=== PATIENT | male | born 1965 | race African-American/Black ===

== ENCOUNTER → 2017-09-12 16:05 | Outpatient (CLI) | payer MEDICARE, MEDICAID, SELFPAY ==
[2017-09-12 16:51] LABS: Absolute Lymphocyte Count 1.68 X10^3/ul (0.83-4.51); Absolute Neutrophil Count 1.9 X10^3/uL (2.0-7.7); Basophil# 0.01 X10^3/uL; Basophil% 0.2 % (0-1); Eosinophil# 0.06 X10^3/uL; Eosinophils% 1.4 % (0-5); Hematocrit 35.6 % (40-54); Lymphocyte # 1.68 X10^3/ul (4.0); Lymphocyte % 40.6 % (19-41); Mean Corp Hgb Conc 33.7 g/gl (32-36); Mean Corpuscular Hgb 31.4 pg (27.0-32.0); Mean Corpuscular Volume 93.2 fL (80-94); Mean Platelet Vol. 11.4 fl (6.2-12.0); Monocyte# 0.44 X10^3/uL; Monocyte% 10.6 % (0-10); Neutrophil # 1.94 X10^3/uL (2.7-7.7); Platelet Count 221 K/mm3 (150-450); RBC Distribution Width CV 12.6 % (11.6-14.6); RBC Distribution Width SD 41.7 fl (35.1-43.9); Red Blood Count 3.82 M/mm3 (4.6-6.2); White Blood Count 4.1 K/mm3 (4.4-11.0)
[2017-09-12 16:54] LABS: POSITIVE COUNT NO; POSITIVE DIFFERENTIAL NO; POSITIVE MORPHOLOGY NO
[2017-09-12 17:20] LABS: ALB/GLOB Ratio 1.2 RATIO (0.9-2.4); AST(SGOT) 15 U/L (15-37); Alanine Aminotransfer ALT/SGPT 16 U/L (16-61); Albumin, Serum 3.9 g/dL (3.2-5.0); Alkaline Phosphatase 63 U/L (45-117); Anion Gap 8 (5-15); BUN 9 mg/dL (7-18); BUN/Creat Ratio 13.8 RATIO (10-20); Chloride 106 mmol/L (98-107); Creatinine, Serum 0.65 mg/dL (0.70-1.30); EST Glomerular Filtration Rate 136 mL/min (>60); Est Glom Filt Rate - Afr Amer 164 mL/min (>60); Globulin 3.3 g/dL (2.2-4.2); Glucose 88 mg/dL (74-106); Potassium 3.6 mmol/L (3.5-5.1); Protein, Total 7.2 g/dL (6.4-8.2); Sodium Level 142 mmol/L (136-145); Thyroid Stim Hormone (TSH) 1.23 uIU/mL (0.358-3.74)
[2017-09-14 09:08] LABS: Hep C Antibodies 0.1 s/co ratio (0.0-0.9)
== END ==
PROVIDERS: Family Provider Family Medicine Geriatric Medicine; PCP Family Medicine Geriatric Medicine; Visit Provider Family Medicine Geriatric Medicine
DX: I10 Essential (primary) hypertension (principal); Z13.89 Encounter for screening for other disorder
CPT/HCPCS: 36415; 80053; 84443; 85025; 86803

== ENCOUNTER → 2019-07-29 16:17 | Outpatient (CLI) | payer MEDICARE, MEDICAID, SELFPAY ==
[2019-07-29 17:44] LABS: Anion Gap 7 (5-15); BUN 8 mg/dL (7-18); BUN/Creat Ratio 13.4 RATIO (10-20); Calcium,Total 9.2 mg/dL (8.5-10.1); Chloride 108 mmol/L (98-107); Cholesterol 203 mg/dL (200); EST Glomerular Filtration Rate 150 mL/min (>60); Est Glom Filt Rate - Afr Amer 181 mL/min (>60); Glucose 91 mg/dL (74-106); High Density Lipoprotein 76 mg/dL; Potassium 3.5 mmol/L (3.5-5.1); Sodium Level 142 mmol/L (136-145); Triglycerides 74 mg/dL; Very Low Density Lipoprotein 15 mg/dL (5-40)
== END ==
PROVIDERS: PCP Family Medicine; Referring Provider Family Medicine; Visit Provider Family Medicine
DX: I10 Essential (primary) hypertension (principal)
CPT/HCPCS: 36415; 80048; 80061

== ENCOUNTER → 2020-03-25 16:18 | Outpatient (CLI) | payer MEDICARE, MEDICAID, SELFPAY ==
[2020-03-25 18:45] LABS: Anion Gap 4 (5-15); BUN 7 mg/dL (7-18); BUN/Creat Ratio 13.3 RATIO (10-20); Calcium,Total 9.1 mg/dL (8.5-10.1); Chloride 107 mmol/L (98-107); Creatinine, Serum 0.52 mg/dL (0.70-1.30); EST Glomerular Filtration Rate 173 mL/min (>60); Est Glom Filt Rate - Afr Amer 209 mL/min (>60); Glucose 91 mg/dL (74-106); Potassium 4.2 mmol/L (3.5-5.1); Sodium Level 141 mmol/L (136-145)
== END ==
PROVIDERS: PCP Family Medicine; Referring Provider Family Medicine; Visit Provider Family Medicine
DX: I10 Essential (primary) hypertension (principal)
CPT/HCPCS: 36415; 80048

== ENCOUNTER → 2021-03-03 16:03 | Outpatient (CLI) | payer MEDICARE, MEDICAID, SELFPAY ==
[2021-03-03 18:38] LABS: Anion Gap 7 (5-15); BUN 10 mg/dL (7-18); BUN/Creat Ratio 17.4 RATIO (10-20); Calcium,Total 9.5 mg/dL (8.5-10.1); Chloride 106 mmol/L (98-107); Cholesterol 214 mg/dL (200); Creatinine, Serum 0.58 mg/dL (0.70-1.30); EST Glomerular Filtration Rate 155 mL/min (>60); Est Glom Filt Rate - Afr Amer 188 mL/min (>60); Glucose 88 mg/dL (74-106); High Density Lipoprotein 67 mg/dL; Potassium 3.8 mmol/L (3.5-5.1); Sodium Level 141 mmol/L (136-145); Triglycerides 53 mg/dL; Very Low Density Lipoprotein 11 mg/dL (5-40)
== END ==
PROVIDERS: PCP Family Medicine; Referring Provider Family Medicine; Visit Provider Family Medicine
DX: I10 Essential (primary) hypertension (principal)
CPT/HCPCS: 36415; 80048; 80061

== ENCOUNTER 2021-08-30 15:03 | Outpatient (CLI) | payer MEDICARE, MEDICAID, SELFPAY ==
[2021-08-30 18:19] LABS: Anion Gap 7 (5-15); BUN 9 mg/dL (7-18); BUN/Creat Ratio 13.1 RATIO (10-20); Calcium,Total 9.6 mg/dL (8.5-10.1); Chloride 106 mmol/L (98-107); Cholesterol 204 mg/dL (200); Creatinine, Serum 0.69 mg/dL (0.70-1.30); EST Glomerular Filtration Rate 126 mL/min (>60); Est Glom Filt Rate - Afr Amer 153 mL/min (>60); Glucose 105 mg/dL (74-106); High Density Lipoprotein 57 mg/dL; Potassium 3.6 mmol/L (3.5-5.1); Sodium Level 140 mmol/L (136-145); Triglycerides 70 mg/dL; Very Low Density Lipoprotein 14 mg/dL (5-40)
== END 2021-08-30 23:59 | disposition home or self-care (01) ==
LOC: MFPLAB 15:07
PROVIDERS: PCP Family Medicine; Visit Provider Family Medicine
DX: I10 Essential (primary) hypertension (principal)
CPT/HCPCS: 36415; 80048; 80061

== ENCOUNTER → 2023-01-26 | Outpatient (CLI) | payer MEDICARE, MEDICAID, SELFPAY ==
[2023-01-26 18:23] LABS: Anion Gap 7 (5-15); BUN 6 mg/dL (7-18); BUN/Creat Ratio 9.9 RATIO (10-20); Calcium,Total 9.4 mg/dL (8.5-10.1); Chloride 108 mmol/L (98-107); Cholesterol 228 mg/dL (200); Creatinine, Serum 0.61 mg/dL (0.70-1.30); EST Glomerular Filtration Rate 145 mL/min (>60); Est Glom Filt Rate - Afr Amer 175 mL/min (>60); Glucose 103 mg/dL (74-106); High Density Lipoprotein 59 mg/dL; PSA,Total - Annual Screen 2.47 ng/mL (0.00-4.00); Potassium 3.5 mmol/L (3.5-5.1); Sodium Level 140 mmol/L (136-145); Triglycerides 111 mg/dL; Very Low Density Lipoprotein 22 mg/dL (5-40)
== END | disposition home or self-care (01) ==
LOC: MFPLAB 14:56
PROVIDERS: PCP Family Medicine; Visit Provider Family Medicine
DX: Z00.00 Encounter for general adult medical examination without abnormal findings (principal); Z12.5 Encounter for screening for malignant neoplasm of prostate; I10 Essential (primary) hypertension; E78.00 Pure hypercholesterolemia, unspecified
CPT/HCPCS: 36415; 80048; 80061; 84153; G0103

== ENCOUNTER → 2023-09-27 | Outpatient (CLI) | payer MEDICARE, MEDICAID, SELFPAY ==
[2023-09-27 18:10] LABS: Anion Gap 3 (5-15); BUN 5 mg/dL (7-18); BUN/Creat Ratio 7.9 RATIO (10-20); Calcium,Total 9.2 mg/dL (8.5-10.1); Chloride 109 mmol/L (98-107); Cholesterol 167 mg/dL (200); Creatinine, Serum 0.63 mg/dL (0.70-1.30); EST Glomerular Filtration Rate 137 mL/min (>60); Est Glom Filt Rate - Afr Amer 166 mL/min (>60); Glucose 107 mg/dL (74-106); High Density Lipoprotein 88 mg/dL; Potassium 3.9 mmol/L (3.5-5.1); Sodium Level 139 mmol/L (136-145); Triglycerides 44 mg/dL; Very Low Density Lipoprotein 9 mg/dL (5-40)
== END | disposition home or self-care (01) ==
LOC: MFPLAB 16:23
PROVIDERS: PCP Family Medicine; Visit Provider Family Medicine
DX: E78.00 Pure hypercholesterolemia, unspecified (principal)
CPT/HCPCS: 36415; 80048; 80061

== ENCOUNTER → 2023-11-10 | Outpatient (CLI) | payer MEDICARE, MEDICAID, SELFPAY ==
[2023-11-10 17:59] LABS: Anion Gap 7 (5-15); BUN 9 mg/dL (7-18); BUN/Creat Ratio 15.8 RATIO (10-20); Calcium,Total 9.8 mg/dL (8.5-10.1); Chloride 105 mmol/L (98-107); Creatinine, Serum 0.57 mg/dL (0.70-1.30); EST Glomerular Filtration Rate 155 mL/min (>60); Est Glom Filt Rate - Afr Amer 188 mL/min (>60); Glucose 99 mg/dL (74-106); Potassium 4.2 mmol/L (3.5-5.1); Sodium Level 137 mmol/L (136-145)
== END | disposition home or self-care (01) ==
LOC: MFPLAB 15:40
PROVIDERS: PCP Family Medicine; Visit Provider Family Medicine
DX: R63.1 Polydipsia (principal)
CPT/HCPCS: 36415; 80048

== ENCOUNTER → 2024-03-29 | Outpatient (CLI) | payer MEDICARE, MEDICAID, SELFPAY ==
[2024-03-29 11:29] LABS: ALB/GLOB Ratio 0.9 RATIO (0.9-2.4); AST(SGOT) 13 U/L (15-37); Alanine Aminotransfer ALT/SGPT 23 U/L (16-61); Albumin, Serum 3.7 g/dL (3.2-5.0); Alkaline Phosphatase 92 U/L (45-117); Anion Gap 6 (5-15); BUN 8 mg/dL (7-18); BUN/Creat Ratio 13.1 RATIO (10-20); Calcium,Total 9.2 mg/dL (8.5-10.1); Chloride 108 mmol/L (98-107); Cholesterol 152 mg/dL (200); Creatinine, Serum 0.61 mg/dL (0.70-1.30); EST Glomerular Filtration Rate 143 mL/min (>60); Est Glom Filt Rate - Afr Amer 173 mL/min (>60); Glucose 100 mg/dL (74-106); High Density Lipoprotein 72 mg/dL; Protein, Total 7.7 g/dL (6.4-8.2); Sodium Level 139 mmol/L (136-145); Triglycerides 54 mg/dL; Very Low Density Lipoprotein 11 mg/dL (5-40)
== END | disposition home or self-care (01) ==
PROVIDERS: PCP Family Medicine; Referring Provider Family Medicine; Visit Provider Family Medicine
DX: E78.00 Pure hypercholesterolemia, unspecified (principal)
CPT/HCPCS: 36415; 80053; 80061

== ENCOUNTER → 2024-06-07 | Outpatient (CLI) | payer MEDICARE, MEDICAID, SELFPAY ==
--- NOTE | 2024-06-07 16:00 | RAD_ITS ---
INDICATION: arm injury EXAMINATION/TECHNIQUE: X-RAY - LEFT XR Forearm 3 VIEWS COMPARISON: FINDINGS: SOFT TISSUES: No soft tissue swelling or gas. No radiopaque foreign body. BONES/JOINTS: No acute fracture or subluxation.. Normal alignment. Preservation of the joint space.. No sclerotic or destructive changes observed. RAD/Forearm 2 Views IMPRESSION: Negative. Electronically Signed: Jose Sumner DO at 16:30 EST ,
== END | disposition home or self-care (01) ==
LOC: MTRAD 15:57
PROVIDERS: PCP Family Medicine; Referring Provider Physician Assistant Surgical; Visit Provider Physician Assistant Surgical
DX: S59.912A Unspecified injury of left forearm, initial encounter (principal)
CPT/HCPCS: 73090

== ENCOUNTER → 2024-10-01 | Outpatient (CLI) | payer MEDICARE, MEDICAID, SELFPAY ==
[2024-10-01 15:44] LABS: ALB/GLOB Ratio 1.3 RATIO (0.9-2.4); AST(SGOT) 18 U/L (<=37); Alanine Aminotransfer ALT/SGPT 12 U/L (<=46); Albumin, Serum 4.5 g/dL (3.4-4.8); Alkaline Phosphatase 88 U/L (40-129); Anion Gap 12 (5-15); BUN 7 mg/dL (4-19); BUN/Creat Ratio 11.8 RATIO (10-20); Calcium,Total 9.9 mg/dL (7.6-11.0); Carbon Dioxide 23.7 mmol/L (21.0-32.0); Chloride 103 mmol/L (98-108); Cholesterol 175 mg/dL (<=200); Creatinine, Serum 0.61 mg/dL (0.70-1.20); EST Glomerular Filtration Rate 110 (>60); Globulin 3.4 g/dL (2.2-4.2); Glucose 96 mg/dL (70-99); High Density Lipoprotein 59 mg/dL; Low Density Lipoprotein Calc. 101 mg/dL; Potassium 4.3 mmol/L (3.3-5.1); Protein, Total 7.9 g/dL (5.9-8.4); Sodium Level 139 mmol/L (133-145); Total Bilirubin 0.93 mg/dL (0.00-1.30); Triglycerides 73 mg/dL; Very Low Density Lipoprotein 15 mg/dL (5-40); cholesterol:hdl ratio screen 2.97
== END | disposition home or self-care (01) ==
PROVIDERS: PCP Family Medicine; Referring Provider Family Medicine; Visit Provider Family Medicine
DX: E78.00 Pure hypercholesterolemia, unspecified (principal)
CPT/HCPCS: 36415; 80053; 80061

== ENCOUNTER 2025-01-12 13:18 | Emergency (ER) | payer MEDICARE, MEDICAID, SELFPAY ==
[2025-01-12 13:19] VITALS: BP 169/92; PULSE 108; RESP 18; TEMP 36.8; O2SAT 98; BMI 25.3
--- NOTE | 2025-01-12 13:38 | EX.ED.UPPERE ---
HPI History of Present Illness Chief Complaint: Upper Extremity Injury Detail of Chief Complaint: Right wrist injury Informant: patient and family Narrative Narrative: Patient presents to the emergency department with complaint of an injury to his right wrist that occurred today. His brother dropped him off at [facility] and while going into [employer] he lost his balance and fell injuring his right wrist. He was able to get up right away. He had no loss of consciousness. Did not hit his head. Patient has history of developmental delay. He denies any other injuries. He is left-hand dominant. Later started complaining of right wrist pain [facility] Medical History (Updated 01/12/25 @ 14:[address] Mark Arguello, DO) Hyperlipidemia HTN (hypertension) Home Medications ?Medication ?Instructions ?Recorded ?Last Taken ?Type lisinopril 20 mg tablet 20 mg PO QDAY 04/30/24 Unknown History rosuvastatin 5 mg tablet 5 mg PO QDAY 04/30/24 Unknown History naproxen 375 mg tablet 375 mg PO BID PRN pain #14 tabs 06/07/24 Unknown Rx hydrocodone-acetaminophen 5-325mg 1 tab PO Q4H PRN PRN Pain 2 days 01/12/25 Unknown Rx 5mg-325mg #12 TABLETS Allergy/AdvReac Type Severity Reaction Status Date / Time No Known Allergies Allergy Verified 01/12/25 13:20 Surgical History No pertinent past surgical history Social History (Updated 01/12/25 @ 13:33 by Kacey Cueva) current occupational status: disabled Smoking Status: Never smoker ROS ROS ED Review of Systems ROS Unobtainable: other Constitutional Constitutional ED: Reports lethargy; Denies chills, fever(s), sweats or weight loss Eyes Eyes: Denies blurry vision, change in vision or diplopia ENT ENT ED: Denies rhinorrhea or sore throat Cardiovascular Cardiovascular: Denies chest pain, orthopnea or racing heartbeat Respiratory/Chest Respiratory/Chest: Denies cough, dyspnea, dyspnea on exertion, orthopnea or sputum Gastrointestinal Gastrointestinal: Denies abdominal pain, diarrhea, nausea or vomiting Genitourinary Genitourinary ED: Denies dysuria, hematuria or urinary frequency Musculoskeletal Musculoskeletal: Reports other Details: Right wrist injury/pain ; Denies arthralgias, back pain, myalgias or neck pain Integumentary Denies abscess, Abrasions or rash Neurologic Neurologic: Denies headache(s) or weakness Psychiatric Psychiatric: Denies anxiety, depression or suicidal thoughts Endocrine Endocrinology: Denies polydipsia, polyphagia or polyuria Hematologic/Lymphatic Hematologic/Lymphatic: Denies easy bleeding, easy bruising or lymphadenopathy Allergic/Immunologic Allergic/Immunologic ED: Denies mouth swelling, tongue swelling or urticaria EXAM Physical Exam Const Vital Signs: 01/12/25 13:19 Temperature 98.3 F Temperature Source Temporal Pulse Rate 108 H Respiratory Rate 18 Blood Pressure 169/92 H Blood Pressure Mean 117 Pulse Ox 98 Oxygen Delivery Method Room Air Positive well nourished and well developed General Appearance ED: well developed and NAD HEENT Reports TM's clear and moist mucous membranes normocephalic and atraumatic; Negative for trauma or tenderness Tympanic Membrane ED: Yes TM's clear Eyes PERRL and EOMs intact bilaterally General Eye ED: Negative for pale conjunctiva or scleral icterus Neck no lymphadenopathy, supple and no JVD General: Negative for tenderness Chest Wall inspection of chest normal and palpation of chest normal Chest: Negative for tenderness Resp normal respiratory effort and clear to auscultation bilaterally Effort and Inspection: Negative for respiratory distress or pain with movement Auscultation: Negative for rhonchi, wheezes or diminished lung sounds Cardio regular rate, regular rhythm, S1 normal heart sound, S2 normal heart sound and no murmurs Peripheral Pulses: pulses 2+ throughout GI normal to inspection, nondistended, normoactive bowel sounds, soft to palpation, non-tender, non-distended and no masses Back/Spine no CVA tenderness and no thoracic nor lumbar tenderness Extremity Extremity Narrative: Right wrist-patient has diffuse soft tissue swelling with tenderness over the distal radius. No pain of the hand. There is no broken skin noted. No pain at the elbow. He is neurovascularly intact distally. General Extremety ED: Negative for edema General Extremity: Negative for edema Neuro oriented x3, CN's II-XII intact bilaterally, no sensory deficits noted and gait normal Sensorium / Orientation: awake, alert, oriented to person, oriented to place and oriented to time Motor Exam: strength 5/5 throughout and strength abnormal Psych mental status grossly normal Skin no rashes or lesions noted and no wounds MDM MDM MDM Narrative Medical decision making narrative: Patient presents with a mechanical fall with injury to the right wrist. No other significant injuries noted. Patient [id number]. X-rays obtained showed a distal radius fracture. Discussed case with orthopedic surgeon on-call Dr. Zach Luke. Will place patient in a AP splint with a little bit of volar tilt. Will have patient follow-up with orthopedics. Will give patient a sling. Will give a prescription for [place] for pain. Patient had AP splint fabricated by myself from [facility]. Radiography Diagnostic Testing: Three-view x-rays of the right wrist obtained interpreted by myself as distal radius fracture intra-articular with no significant displacement. Radiology in agreement. Discharge Plan Triage Chief Complaint: Upper Extremity Injury ED Provider: Mark Arguello Dx/Rx/DC Orders Clinical Impression: Distal radius fracture, right Instructions: ED Colles Fracture No Reduction ... Prescriptions: New hydrocodone-acetaminophen 5-325 mg tablet 1 tab PO Q4H PRN PRN (Reason: Pain) 2 Days Qty: 12 0RF No Action lisinopril 20 mg tablet 20 mg PO QDAY rosuvastatin 5 mg tablet 5 mg PO QDAY naproxen 375 mg tablet 375 mg PO BID PRN (Reason: pain) Qty: 14 0RF Primary Care Provider: Roly Garcia Referrals: Roly Garcia MD [Primary Care Provider] - Zach Luke MD [Med Staff - Active Staff] - 3-5 Days Print Language: Citizen Of [place] Disposition Disposition: Home, Self Care
--- NOTE | 2025-01-12 13:40 | RAD_ITS ---
PROCEDURE: WRIST MIN 3 VIEWS 01/12/2025 REASON FOR EXAM: INJURY TECHNIQUE: WRIST MIN 3 VIEWS Laterality: COMPARISON: None. FINDINGS: Bones: Acute complex fracture of the distal radius extending to the radial carpal joint. Joints: No dislocation. Soft tissues: Soft tissue swelling. RAD/Wrist min 3 Views IMPRESSION: Acute complex fracture of the distal radius extending to the radial carpal join t. Reading Location: [id number]
--- OUTSIDE RECORDS SUMMARY | 2025-01-12 13:57 | XMS RPT_ITS | CCD ---
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 <150 mg/dL Borderline high 150 - 199 mg/dL High 200 - 499 mg/dL Very High > or = 500 mg/dL Laboratory - Chemistry and C hemistry - challengeOrdered By: Roly Garcia on 09-27-2023 Cholesterol in HDL [Mass/Vol] 88 mg/dL >40 [facility] Comment on above: The drugs N-Acetylcy steine and Metamizole may falsely depress this assay. Reference Range HDL <40 mg/dL Low HDL Cholesterol HDL >or= 60 mg/dL High HDL Cholesterol Cholesterol in LDL [Mass/Vol] 70 mg/dL 0-130 [facility] CO2 [Moles/Vol] 27.0 mmol/L 21.0-32.0 [facility] Urea nitrogen/Creatinine [Mass ratio] 7.9 mg/mg 10-20 [facility] No Panel InformationOrdered By: Roly Garcia on 09-27-2023 Estimated GFR (MDRD) Amer 166 mL/min >60 [facility] Comment on above: GFR Calc Estimated GFR (MDRD) Non-Af Amer 137 mL/min >60 [facility] Comment on above: Non- GFR Calc VLDL Cholesterol 9 mg/dL 5-40 [facility] Serum or plasma calcium trip urement (mass/volume)Ordered By: Roly Garcia on 09-27-2023 Calcium [Mass/Vol] 9.2 mg/dL 8.5-10.1 [facility] Serum or plasma creatinine m easurement (mass/volume)Ordered By: Roly Garcia on 09-27-2023 Creatinine [Mass/Vol] 0.63 mg/dL 0.70-1.30 [facility] Comment on above: The validity of the calculated GFR & GFRAA in patients over 70 years has not been determined. Clinical correlation is essential. Serum or plasma urea nitroge n measurement (mass/volume)Ordered By: Roly Garcia on 09-27-2023 Urea nitrogen [Mass/Vol] 5 mg/dL 7-18 [facility] Thin prep Papanicolaou smear with manual screeningOrdered By: Roly Garcia on 09-27-2023 Thin prep Papanicolaou smear with manual screening 3 5-15 [facility] CNPNon 05-19-2023 CNPN Telephone (PODIWS) WILBUR PEARSON ([id number]) 1965 M Date Time Provider Department 05/19/23 SASKIA VALENCIA PODIWS During your visit today, we recorded the following information about you: Allergies As of Date: 05/19/2023 (No Known Allergies) Date Reviewed: 05/18/2023 Reviewed by: Yancy Flores, NANCY - Fully Assessed Meds Comments as of 05/18/2023: 05/18/23-Patient unsure of medication. Mother states Coreg and Lisinopril but unsure of dose. Problem List As Of Date: 05/19/2023 (None) Encounter Status:Closed by NIELS UMANA on 05/19/23 [facility] CNOVon 05-18-2023 CNOV Office Visit (PODIWS) WILBUR PEARSON ([id number]) 1965 M Date Time Provider Department 05/18/23 3:00 PM SASKIA VALENCIA PODIWS During your visit today, we recorded the following information about you: Yancy Flores, NANCY 05/20/2023 6:44 AM Signed Patient presents with: Left Foot - New, nail care Right Foot - New, nail care Patient presents for nail care. Patient new to [facility]. Unsure of medications that he takes, Lives with mother. States that he is not a diabetic. All toenail are long, thick and discolored. Saskia Valencia 05/20/2023 6:44 AM Signed Initial Podiatric Office Visit: Chief Complaint: This 57 year old male who presents with chief complaint:painful toenails HPI Patient presents to clinic for evaluation of b/l feet Complains of severe thickening of toenails 1-5 b/l Has not been debrided in quite some time. Here to discuss options. PAIN EVALUATION No data found in the last 1 encounters. No results found for: HBA1C PCP: No primary care provider on file. PAST MEDICAL HISTORY Diagnosis Date HTN (hypertension) No current outpatient medications on file. No current facility-administere d medications for this visit. ALLERGIES No Known Allergies No past surgical history on file. No family history on file. Social History Tobacco Use Smoking status: Never Smokeless tobacco: Never Vaping Use Vaping Use: Never used Substance Use Topics Alcohol use: Never Drug use: Never REVIEW OF SYSTEMS GENERAL: Negative for Malaise, significant weight loss, fever RESPIRATORY: Negative for cough, wheezing and shortness of breath CARDIOVASCULAR: Negative for chest pain, leg swelling and palpitations GI: Negative for abdominal discomfort, blood in stools or black stools and change in bowel habits : Negative for dysuria, frequency and incontinence MUSCULOSKELETAL: Negative for joint pain or swelling, back pain, and muscle pain. SKIN: Negative for lesions, rash, and itching. HEMATOLOGY/LYMPHOLOG Y Negative for prolonged bleeding, bruising easily, and swollen nodes. ENDOCRINE: Negative for cold or heat intolerance, polyuria, polydipsia and goiter. NEURO: negative Physical Exam: Constitutional: Pt is a well developed 57 year old male who is alert, oriented and cooperative Eyes: Following during examination. No redness or drainage. Respiratory: RR normal and nonlabored. Even breathing. No evidence of distress or shortness of breath. Psychology: Patient is engaged during conversation. Normal affect and mood. Does not appear depressed or anxious during encounter. Vascular: Dorsalis pedis and posterior tibial pulses palpable as b/l Capillary Fill time < 5 seconds to digits 1-5 b/l Skin temperature warm to warm proximal to distal b/l Hair growth present to digits Neurological: intact light touch/epicritic sensation b/l intact protective sensation no significant neurological deficits Dermatological: Nails 1-5 b/l appear severely thick, dystrophic, painful. Webspaces clean and dry 1-4 b/l. Skin appears well hydrated and supple. good color, texture, turgor. No open lesions present. No callosities present. Radiographs: n/a ASSESSMENT: (B35.1) Onychomycosis (primary encounter diagnosis) (M79.675) Pain in toe of left foot (M79.674) Pain in toe of right foot PLAN: A review of the patient's PMH and Podiatric physical exam was completed. We discussed the possible etiologies of discolored, dystrophic, and thickened nails including fungus, yeast, mold as well as in some instances, prior trauma, or mechanical causes such as repetitive microtrauma in shoe gear. We discussed topical medication for discolored toenails which has very low success but no major side effects. We discussed oral medication. Patient will need hepatic testing prior to use. Patient informed of risks associated with Lamisil. We discussed removal of toenails. Patient would like to proceed with debridement. Debridement of toenails 1-5 b/l. Saskia Valencia DPM Podiatry [address] [facility] [address] Dept: [phone] Dept Allergies As of Date: 05/18/2023 (No Known Allergies) Date Reviewed: 05/18/2023 Reviewed by: Yancy Flores, NANCY - Fully Assessed Reason for Visit: New [522975] nail care [Other] New [750233] nail care [Other] Primary Visit Diagnosis:Onychomyco sis [B35.1] Other Visit Diagnoses:Pain in toe of left foot [M79.675] Pain in toe of right foot [M79.674] Meds Comments as of 05/18/2023: 05/18/23-Patient unsure of medication. Mother states Coreg and Lisinopril but unsure of dose. Problem List As Of Date: 05/18/2023 (None) Encounter Status:Closed by SASKIA VALENCIA DPM on 05/20/23 Normal [facility] Basophil percentageon 2021 Chloride [Moles/Vol] 106 mmol/L 98-107 [facility] Work Phone: Cholesterol [Mass/Vol] 204 mg/dL <200 [facility] Work Phone: Comment on above: <200 mg/dL Desirable 200-240 mg/dL Borderline >240 mg/dL High Risk Glucose [Mass/Vol] 105 mg/dL 74-106 [facility] Work Phone: Comment on above: Fasting Glucose resu lt from 100 to 125 mg/dL suggests IMPAIRED HOMEOSTASIS per A.D.A. criteria. Potassium [Moles/Vol] 3.6 mmol/L 3.5-5.1 [facility] Work Phone: Sodium [Moles/Vol] 140 mmol/L 136-145 [facility] Work Phone: Triglyceride [Mass/Vol] 70 mg/dL [facility] Work Phone: Comment on above: The drugs N-Acetylcy steine and Metamizole may falsely depress this assay.Serum Triglycerides Reference Interval Normal <150 mg/dL Borderline high 150 - 199 mg/dL High 200 - 499 mg/dL Very High > or = 500 mg/dL Laboratory - Chemistry and C hemistry - challengeon 08-30-2021 CO2 [Moles/Vol] 27.0 mmol/L 21.0-32.0 [facility] Work Phone: Urea nitrogen/Creatinine [Mass ratio] 13.1 mg/mg 10-20 [facility] Work Phone: No Panel Informationon 08-30 Estimated GFR (MDRD) Amer 153 mL/min >60 [facility] Work Phone: Comment on above: GFR Calc Estimated GFR (MDRD) Non-Af Amer 126 mL/min >60 [facility] Work Phone: Comment on above: Non- GFR Calc Serum or plasma calcium rtip urement (mass/volume)on 08-30-2021 Calcium [Mass/Vol] 9.6 mg/dL 8.5-10.1 [facility] Work Phone: Serum or plasma cholesterol in HDL measurement (mass/volume)on 08-30-2021 Cholesterol in HDL [Mass/Vol] 57 mg/dL [facility] Work Phone: Comment on above: The drugs N-Acetylcy steine and Metamizole may falsely depress this assay. Reference Range HDL <40 mg/dL Low HDL Cholesterol HDL >or= 60 mg/dL High HDL Cholesterol Serum or plasma cholesterol in VLDL measurement (mass/volume)on 08-30-2021 Cholesterol in VLDL [Mass/Vol] 14 mg/dL 5-40 [facility] Work Phone: Serum or plasma creatinine m easurement (mass/volume)on 08-30-2021 Creatinine [Mass/Vol] 0.69 mg/dL 0.70-1.30 [facility] Work Phone: Comment on above: The validity of the calculated GFR & GFRAA in patients over 70 years has not been determined. Clinical correlation is essential. Serum or plasma low density lipoprotein (LDL) cholesterol measurement (mass/volume)on 08-30-2021 Cholesterol in LDL [Mass/Vol] 133 mg/dL 0-130 [facility] Work Phone: Serum or plasma urea nitroge n measurement (mass/volume)on 08-30-2021 Urea nitrogen [Mass/Vol] 9 mg/dL 7-18 [facility] Work Phone: Thin prep Papanicolaou smear with manual screeningon 08-30-2021 Thin prep Papanicolaou smear with manual screening 7 5-15 [facility] Work Phone: Encounters Encounter Date Encounter Type Care Provider Facility Start: 10-01-2024 End: 10-01-2024 ambulatory [facility] Facility:[facility] Start: 06-07-2024 End: 06-07-2024 ambulatory [facility] [place] Start: 06-07-2024 End: 06-07-2024 ambulatory [facility] Facility:[facility] Start: 04-30-2024 End: 04-30-2024 ambulatory [facility] [place] Start: 03-29-2024 End: 03-29-2024 ambulatory [facility] Facility:[facility] Start: 11-10-2023 End: 11-10-2023 [facility] Facility:[facility] Start: 09-27-2023 End: 09-27-2023 ambulatory [facility] Work Phone: Start: 09-27-2023 End: 09-27-2023 Patient encounter procedure [facility] Start: 05-19-2023 Telephone encounter Saskia Judd Work Phone: Podiatry Start: 05-18-2023 End: 05-18-2023 ambulatory SASKIA VALENCIA Facility:[facility] Start: 05-18-2023 End: 05-18-2023 Patient encounter procedure Saskia Valencia Work Phone: Podiatry Comment on above: Onychomycosis (Prima ry Dx); Pain in toe of left foot; Pain in toe of right foot Start: 08-30-2021 End: 08-30-2021 Patient encounter procedure [facility] Plan of Treatment Date Care Activity Detail Author Start: 01-26-2033 Urine microalbumin profile DTa P,Tdap,Td Vaccine (2 - Td or Tdap) [facility] Start: 02-03-2023 Covid-19 Vaccine ( season) Covid-19 Vaccine ( season) [facility] Start: 02-03-2023 Influenza vaccination Influenza Vacc ine (#1) [facility] Start: 06-05-2022 Depression Assessment Depression Ass essment [facility] Start: 2019 Prostate specific an tigen measurement Prostate Cancer Screening Discussion [facility] Start: 2014 Shingrix Vaccine (1 of 2) Mathis grix Vaccine (1 of 2) [facility] Start: 2009 Diabetes Screening Diabetes Screenin g [facility] Start: 2009 Screening for malign ant neoplasm of colon [facility] Start: 1999 [facility] Start: 1982 Hepatitis C screening Hepatitis C Sc [place] [facility] Start: 1982 HIV screening HIV Screening [facility] lashay [facility] Start: 1964 Hepatitis B Vaccine (1 of 3 - 3-dose series) Hepatitis B Vaccine (1 of 3 - 3-dose series) [facility] Immunizations Immunization Date Immunization Notes Care Provider Juan Manuel boyce 03-04-2022 influenza, injectabl e, quadrivalent, preservative free [facility] 03-04-2022 influenza virus vaccine, unspecified formulation Saskia Valencia Work Phone: [facility] 05-19-2021 Covid (Moderna) [facility] 03-02-2021 influenza, injectabl e, quadrivalent, preservative free [facility] 03-02-2021 influenza, seasonal, injectable [facility] Work Phone: 07-14-2020 Covid (Moderna) [facility] 06-16-2020 Covid (Moderna) [facility] 03-03-2020 influenza, injectabl e, quadrivalent, preservative free [facility] 03-03-2020 influenza, seasonal, injectable [facility] Work Phone: 04-08-2019 influenza, injectabl e, quadrivalent, preservative free [facility] 04-08-2019 influenza, seasonal, injectable [facility] Work Phone: 03-19-2018 influenza, injectabl e, quadrivalent, preservative free [facility] 03-19-2018 influenza, seasonal, injectable [facility] Work Phone: 03-10-2017 influenza, injectabl e, quadrivalent, preservative free [facility] 03-10-2017 influenza, seasonal, injectable [facility] Work Phone: 03-03-2016 influenza, injectabl e, quadrivalent, preservative free [facility] 03-03-2016 influenza, seasonal, injectable [facility] Work Phone: 03-04-2015 influenza, injectabl e, quadrivalent, preservative free [facility] 03-04-2015 influenza, seasonal, injectable [facility] Work Phone: 02-27-2014 influenza, injectabl e, quadrivalent, preservative free [facility] 02-27-2014 influenza, seasonal, injectable [facility] Work Phone: 06-13-2013 Influenza virus vaccine [facility] Payers Date Payer Category Payer Self-pay [id number] 2021 Medicaid [id number] 1991 Medicare [id number] 1991 Medicare MEDICARE MEDICAR E A AND B [id number] 1991-Present [phone] [place] [address] Medicare [id number] Unknown [id number] Unknown [id number] Unknown [id number] Unknown [id number] Unknown [id number] Social History Date Type Detail Facility [facility]: [facility] Start: 1965 Sex Assigned At Male [facility] Start: 05-18-2023 [facility] Start: 05-18-2023 Tobacco use and exposure Smokeless tobacco non-user [facility] Start: 05-18-2023 Alcohol intake Lifetime non-d emanuel (finding) [facility] Start: 05-18-2023 History of Social function [facility] Start: 05-18-2023 Tobacco use panel [facility] National Score (1-100), lower number is lower risk 80 [facility] Start: 1965 [facility] 05-20-2023 Note Date & Type Note Facility 05-20-2023 Note HNO ID: [id number] Author: Sasika Valencia Service: ? Author Type: Physician Type: Progress Notes Filed: 05/20/2023 6:44 AM Note Text: Initial Podiatric Office Visit: Chief Complaint: This 57 year old male who presents with chief complaint:painful toenails HPI Patient presents to clinic for evaluation of b/l feet Complains of severe thickening of toenails 1-5 b/l Has not been debrided in quite some time. Here to discuss options. PAIN EVALUATION No data found in the last 1 encounters. No results found for: HBA1C PCP: No primary care provider on file. PAST MEDICAL HISTORY Diagnosis Date HTN (hypertension) No current outpatient medications on file. No current facility-administered medications for this visit. ALLERGIES No Known Allergies No past surgical history on file. No family history on file. Social History Tobacco Use Smoking status: Never Smokeless tobacco: Never Vaping Use Vaping Use: Never used Substance Use Topics Alcohol use: Never Drug use: Never REVIEW OF SYSTEMS GENERAL: Negative for Malaise, significant weight loss, fever RESPIRATORY: Negative for cough, wheezing and shortness of breath CARDIOVASCULAR: Negative for chest pain, leg swelling and palpitations GI: Negative for abdominal discomfort, blood in stools or black stools and change in bowel habits : Negative for dysuria, frequency and incontinence MUSCULOSKELETAL: Negative for joint pain or swelling, back pain, and muscle pain. SKIN: Negative for lesions, rash, and itching. HEMATOLOGY/LYMPHOLOGY Negative for prolonged bleeding, bruising easily, and swollen nodes. ENDOCRINE: Negative for cold or heat intolerance, polyuria, polydipsia and goiter. NEURO: negative Physical Exam: Constitutional: Pt is a well developed 57 year old male who is alert, oriented and cooperative Eyes: Following during examination. No redness or drainage. Respiratory: RR normal and nonlabored. Even breathing. No evidence of distress or shortness of breath. Psychology: Patient is engaged during conversation. Normal affect and mood. Does not appear depressed or anxious during encounter. Vascular: Dorsalis pedis and posterior tibial pulses palpable as b/l Capillary Fill time < 5 seconds to digits 1-5 b/l Skin temperature warm to warm proximal to distal b/l Hair growth present to digits Neurological: intact light touch/epicritic sensation b/l intact protective sensation no significant neurological deficits Dermatological: Nails 1-5 b/l appear severely thick, dystrophic, painful. Webspaces clean and dry 1-4 b/l. Skin appears well hydrated and supple. good color, texture, turgor. No open lesions present. No callosities present. Radiographs: n/a ASSESSMENT: (B35.1) Onychomycosis (primary encounter diagnosis) (M79.675) Pain in toe of left foot (M79.674) Pain in toe of right foot PLAN: A review of the patient's PMH and Podiatric physical exam was completed. We discussed the possible etiologies of discolored, dystrophic, and thickened nails including fungus, yeast, mold as well as in some instances, prior trauma, or mechanical causes such as repetitive microtrauma in shoe gear. We discussed topical medication for discolored toenails which has very low success but no major side effects. We discussed oral medication. Patient will need hepatic testing prior to use. Patient informed of risks associated with Lamisil. We discussed removal of toenails. Patient would like to proceed with debridement. Debridement of toenails 1-5 b/l. Saskia Valencia DPM Podiatry [address] [facility] [address] Dept: [phone] Dept [facility] History of Present illness Narrative 05-20-2023 Saskia Valencia - 05/20/2023 6:40 AM Yancy Sherwood RN - 05/18/2023 3:16 PM EST Note Date & Type Note Facility 05-20-2023 History of Presen t illness Narrative Initial Podiatric Office Visit: Chief Complaint: This 57 year old male who presents with chief complaint:painful toenails HPI Patient presents to clinic for evaluation of b/l feet Complains of severe thickening of toenails 1-5 b/l Has not been debrided in quite some time. Here to discuss options. PAIN EVALUATION No data found in the last 1 encounters. No results found for: HBA1C PCP: No primary care provider on file. PAST MEDICAL HISTORY Diagnosis Date HTN (hypertension) No current outpatient medications on file. No current facility-administered medications for this visit. ALLERGIES No Known Allergies No past surgical history on file. No family history on file. Social History Tobacco Use Smoking status: Never Smokeless tobacco: Never Vaping Use Vaping Use: Never used Substance Use Topics Alcohol use: Never Drug use: Never REVIEW OF SYSTEMS GENERAL: Negative for Malaise, significant weight loss, fever RESPIRATORY: Negative for cough, wheezing and shortness of breath CARDIOVASCULAR: Negative for chest pain, leg swelling and palpitations GI: Negative for abdominal discomfort, blood in stools or black stools and change in bowel habits : Negative for dysuria, frequency and incontinence MUSCULOSKELETAL: Negative for joint pain or swelling, back pain, and muscle pain. SKIN: Negative for lesions, rash, and itching. HEMATOLOGY/LYMPHOLOGY Negative for prolonged bleeding, bruising easily, and swollen nodes. ENDOCRINE: Negative for cold or heat intolerance, polyuria, polydipsia and goiter. NEURO: negative Physical Exam: Constitutional: Pt is a well developed 57 year old male who is alert, oriented and cooperative Eyes: Following during examination. No redness or drainage. Respiratory: RR normal and nonlabored. Even breathing. No evidence of distress or shortness of breath. Psychology: Patient is engaged during conversation. Normal affect and mood. Does not appear depressed or anxious during encounter. Vascular: Dorsalis pedis and posterior tibial pulses palpable as b/l Capillary Fill time < 5 seconds to digits 1-5 b/l Skin temperature warm to warm proximal to distal b/l Hair growth present to digits Neurological: intact light touch/epicritic sensation b/l intact protective sensation no significant neurological deficits Dermatological: Nails 1-5 b/l appear severely thick, dystrophic, painful. Webspaces clean and dry 1-4 b/l. Skin appears well hydrated and supple. good color, texture, turgor. No open lesions present. No callosities present. Radiographs: n/a ASSESSMENT: (B35.1) Onychomycosis (primary encounter diagnosis) (M79.675) Pain in toe of left foot (M79.674) Pain in toe of right foot PLAN: A review of the patient's PMH and Podiatric physical exam was completed. We discussed the possible etiologies of discolored, dystrophic, and thickened nails including fungus, yeast, mold as well as in some instances, prior trauma, or mechanical causes such as repetitive microtrauma in shoe gear. We discussed topical medication for discolored toenails which has very low success but no major side effects. We discussed oral medication. Patient will need hepatic testing prior to use. Patient informed of risks associated with Lamisil. We discussed removal of toenails. Patient would like to proceed with debridement. Debridement of toenails 1-5 b/l. Saskia Valencia DPM Podiatry [address] [facility] [address] Dept: [phone] Dept Patient presents with: Left Foot - New, nail care Right Foot - New, nail care Patient presents for nail care. Patient new to [facility]. Unsure of medications that he takes, Lives with mother. States that he is not a diabetic. All toenail are long, thick and discolored. documented in this encounter [facility] Progress note 05-18-2023 Note Date & Type Note Facility 05-18-2023 Note HNO ID: [id number] Author: Yancy Flores RN Service: ? Author Type: Registered Nurse Type: Progress Notes Filed: 05/20/2023 6:44 AM Note Text: Patient presents with: Left Foot - New, nail care Right Foot - New, nail care Patient presents for nail care. Patient new to [facility]. Unsure of medications that he takes, Lives with mother. States that he is not a diabetic. All toenail are long, thick and discolored. [facility] Evaluation note Note Date & Type Note Facility Evaluation note No assessment information availa [facility] Work Phone: Evaluation note Note Date & Type Note Facility Evaluation note Diagnosis Onychomycosis- Primary Dermatophytosis of nail Pain in toe of left foot Pain in limb Pain in toe of right foot Pain in limb documented in this encounter [facility] Summary Purpose Family History No Family History Records FoundNo Family History Records Found Advance Directives No Advanced Directives Records FoundNo Advanced Directives Records Found Additional Source Comments Goals (unrecognized section and content) Goals may be documented in a n alternate sectionGoals may be documented in an alternate section Source Comments (unrecognize d section and content) In the event this informatio n is protected by the Federal Confidentiality of Alcohol and Drug Abuse Patient Records regulations: The Federal rules restrict any use of the information to criminally investigate or prosecute any alcohol or drug abuse patient[facility] event this information is protected by the Federal Confidentiality of Alcohol and Drug Abuse Patient Records regulations: The Federal rules restrict any use of the information to criminally investigate or prosecute any alcohol or drug abuse patient.[facility] Reason for Visit (unrecogniz ed section and content) Reason Comments New nail care (unrecognized sect ion and content) No Status Records FoundNo Status Records Found INFORMATION SOURCE (unrecogn ized section and content) DATE CREATED AUTHOR 05/20/2023 [facility] DATE CREATED AUTHOR AUTHOR'S ORGANIZ ATION 10/10/2024 [facility] Care Teams (unrecognized sec tion and content) Team Status: Active Member Role Status Dates Dr. Gal Tellez MD Family Provider Active Dr. Roly Garcia MD Primary Care Provider Active Team Status: Inactive Member Role Status Dates Dr. Roly Garcia MD Primary Care Provider, Attending Provider Active FOR RECORDS PERTAINING TO PATIENTS WHO ARE OR HAVE BEEN ENROLLED IN A CHEMICAL DEPENDENCY/SUBSTANCEABUSE PROGRAM, SOME INFORMATION MAY BE OMITTED. This clinical summary was aggregated from multiple sources. Caution should be exercised in using it in the provision of clinical care. This summary normalizes information from multiple sources, and as a consequence, information in this document may materially change the coding, format and clinical context of patient data. In addition, data may be omitted in some cases. CLINICAL DECISIONS SHOULD BE BASED ON THE PRIMARY CLINICAL RECORDS. [facility] [employer] [facility]. provides no warranty or guarantee of the accuracy or completeness of information in this document.
[2025-01-12] MEDS: HYDROcodone Bitartrate/Apap 5/325 Tablet PO (14:07)
[2025-01-12 14:18] VITALS: BP 155/100; PULSE 93; RESP 17; TEMP 36.6; O2SAT 100
== END 2025-01-12 14:18 | disposition home or self-care (01) ==
PROVIDERS: Emergency Provider Emergency Medicine; PCP Family Medicine; Referring Provider Emergency Medicine; Visit Provider Emergency Medicine
DX: S52.501A Unspecified fracture of the lower end of right radius, initial encounter for closed fracture (principal); W19.XXXA Unspecified fall, initial encounter
CPT/HCPCS: 73110; 99283

== ENCOUNTER 2025-01-12 22:21 | Emergency (ER) | payer MEDICARE, MEDICAID, SELFPAY ==
[2025-01-12 22:23] VITALS: BP 136/79; PULSE 88; RESP 16; TEMP 36.8; O2SAT 95; BMI 28.1
--- OUTSIDE RECORDS SUMMARY | 2025-01-12 22:34 | XMS RPT_ITS | CCD ---
Author Organization [facility] Care Team Providers Care Agriculture Consultant Name Role Phone Unavailable Primary Care Provider UnavailSASKIA Laird Attending Unavailable Garcia, Roly Primary Care Unavailable Garcia, Roly Attending Unavailable Garcia, Roly Referring Unavailable Garcia, Roly Primary Care Unavailable Jose, Roly Attending Unavailable Jose, Roly Referring Unavailable Jose, Roly Primary Care Unavailable Angelo Jara Attending Unavailable Garcia, Roly Referring Unavailable Garcia, Roly Primary Care Unavailable Tyler JACKSON, Jesse Attending Unavailable Jose, Roly Referring Unavailable Garcia, Roly Primary Care Unavailable Jose, Roly Attending Unavailable Jose, Roly Primary Care Unavailable Tyler JACKSON, Jesse Attending Unavailable Tyler JACKSON, Jesse Referring Unavailable Dr. Roly Garcia MD Primary Care Provider [phone] Dr. Roly Garcia MD Attending Provider Dr. Roly Garcia MD Referring Provider Dr. Mark Arguello DO Referring Provider [phone] Dr. Mark Arguello DO Emergency Provider Medications Current Medications Medication Drug Class(es) Dates Sig (Normalized) Sig (Original) acetaminophen 325 mg / HYDROcodone bitartrate 5 mg oral tablet (1 source) Opioid Agonist Start: 01-12-2025 take 1 tablet by mouth every four hours as needed for pain Hydrocodone-Acetam inophen 5-325 mg tablet Active 1 {tbl} PO EVERY 4 HOURS NEEDED as needed for Pain 12 2 0 January 12, 2025 Fracture of distal end of right radius lisinopril 20 mg oral tablet (1 source) Angiotensin Converting Enzyme Inhibitor Start: 04-30-2024 take 1 tablet by mouth once daily Lisinopril 20 mg tablet Active 20 mg PO daily April 30, 2024 1:00am naproxen 375 mg oral tablet (1 source) Nonsteroidal Anti-inflammatory Drug Start: 06-07-2024 take 1 tablet by mouth twice daily as needed for pain Naproxen 375 mg tablet Active 375 mg PO TWICE A DAY as needed for pain 14 0 June 07, 2024 1:00am rosuvastatin calcium 5 mg oral tablet (1 source) HMG-CoA Reductase Inhibitor Start: 04-30-2024 take 1 tablet by mouth once daily Rosuvastatin 5 mg tablet Active 5 mg PO daily April 30, 2024 1:00am Completed/Discontinued Medications Medication Drug Class(es) Dates Sig (Normalized) Sig (Original) amoxicillin 500 mg oral tablet (1 source) Penicillin-class Antibacterial Start: 04-30-2024 End: 06-07-2024 take 1 tablet by mouth three times daily Amoxicillin 500 mg tablet Discontinued 500 mg PO THREE TIMES A DAY 30 0 April 30, 2024 1:00am June 07, 2024 5:13pm Problems Active Problems Problem Classification Problem Date Documented Da te Episodic/Chronic Disorders of lipid metabolism (2 sources) Pure hypercholesterolemi a, unspecified; Translations: [Hyperlipidemia] Onset: 10-07-2024 04-30-2024 Chronic Essential hypertension (1 source) Hypertensive disorder; Translations: [Essential (primary) hypertension] 04-30-2024 Chronic Fracture of upper limb (1 source) Fracture of distal end of right radius; Translations: [Unspecified fracture of the lower end of right radius, initial encounter for closed fracture] 01-12-2025 Episodic Mycoses (1 source) Onychomycosis; Translations: [Tinea unguium] 05-20-2023 Episodic Other connective tissue disease (1 source) Pain of toe of left foot; Translations: [Pain in left toe(s)] 05-20-2023 Episodic Other connective tissue disease (1 source) Pain of toe of right foot; Translations: [Pain in right toe(s)] 05-20-2023 Episodic Sprains and strains (2 sources) Strain of unspecified muscles, fascia and tendons at forearm level, left arm, initial encounter; Translations: [Injury of forearm] Onset: 06-07-2024 06-07-2024 Episodic Past or Other Problems Problem Classification [...] source) Polydipsia; Translations: [Polydipsia] Onset: 11-20-2023 Episodic Results Test Name Value Interpretation Reference Range Facility Anion gap in Serum or Plasma Ordered By: Roly Garcia on 10-01-2024 Anion gap [Moles/Vol] 12 mmol/L 5-15 [facility] BUN/creatinine ratioOrdered By: Roly Garcia on 10-01-2024 Urea nitrogen/Creatinine [Mass ratio] 11.8 mg/mg 10- [facility] Bilirubin, totalOrdered By: Roly Garcia on 10-01-2024 Bilirubin [Mass/Vol] 0.93 mg/dL 0.00-1.30 [facility] Calculated very low density lipoprotein (VLDL) cholesterol measurementOrdered By: Roly Garcia on 10-01-2024 Calculated very low density lipoprotein (VLDL) cholesterol measurement 15 mg/dL -40 [facility] Carbon dioxide, total [Moles /volume] in Central venous bloodOrdered By: Roly Garcia on 10-01-2024 CO2 [Moles/Vol] 23.7 mmol/L 21.0-32.0 [facility] Chloride assayOrdered By: Pepe Garcia on 10-01-2024 Chloride [Moles/Vol] 103 mmol/L 98-108 [facility] Comprehensive Metabolic Prof ilon 10-01-2024 Albumin [Mass/Vol] 4.5 g/dL Normal 3.4-4.8 [facility] Comment on above: Performed By: #### L 500.4100, L500.4050 #### [facility] [address] [place], [place], [id number] Albumin/Globulin [Mass ratio] 1.3 {ratio} Normal 0.9-2.4 [facility] Comment on above: Performed By: #### L 500.4100, L500.4050 #### [facility] [address] [place], [address] ALK PHOS 88 U/L Normal 40-129 [facility] Comment on above: Performed By: #### L 500.4100, L500.4050 #### [facility] [address] [place], [address] ALT [Catalytic activity/Vol] 12 U/L Normal <=46 [facility] Comment on above: Performed By: #### L 500.4100, L500.4050 #### [facility] [address] [place], [address] AST [Catalytic activity/Vol] 18 U/L Normal <=37 [facility] Comment on above: Performed By: #### L 500.4100, L500.4050 #### [facility] [address] [place], [address] Bilirubin [Mass/Vol] 0.93 mg/dL Normal 0.00-1.30 [facility] Comment on above: Performed By: #### L 500.4100, L500.4050 #### [facility] [address] [place], [address] BUN/CRE 11.8 RATIO Normal 10-20 [facility] Comment on above: Performed By: #### L 500.4100, L500.4050 #### [facility] [address] [place], [address] Calcium [Mass/Vol] 9.9 mg/dL Normal 7.6-11.0 [facility] Comment on above: Performed By: #### L 500.4100, L500.4050 #### [facility] [address] [place], [address] Chloride [Moles/Vol] 103 mmol/L Normal 98-108 [facility] Comment on above: Performed By: #### L 500.4100, L500.4050 #### [facility] [address] [place], [address] CO2 [Moles/Vol] 23.7 mmol/L Normal 21.0-32.0 [facility] Comment on above: Performed By: #### L 500.4100, L500.4050 #### [facility] [address] [place], [address] Creatinine [Mass/Vol] 0.61 mg/dL Low 0.70-1.20 [facility] Comment on above: Performed By: #### L 500.4100, L500.4050 #### [facility] [address] [place], [address] GAP 12 Normal 5-15 [facility] Comment on above: Performed By: #### L 500.4100, L500.4050 #### [facility] [address] [place], [address] GFR/1.73 sq M.predicted among non-blacks MDRD (S/P/Bld) [Vol rate/Area] 110 mL/min/{1.73_m2} Normal >60 [facility] Comment on above: Result Comment: mL/m in/1.73m2 CKD-EPI Creatinine Equation (2020) Performed By: #### L 500.4100, L500.4050 #### [facility] [address] [place], [address] Globulin (S) [Mass/Vol] 3.4 g/dL Normal 2.2-4.2 [facility] Comment on above: Performed By: #### L 500.4100, L500.4050 #### [facility] [address] [place], [address] Glucose [Mass/Vol] 96 mg/dL Normal 70-99 [facility] Comment on above: Performed By: #### L 500.4100, L500.4050 #### [facility] [address] [place], [address] Potassium [Moles/Vol] 4.3 mmol/L Normal 3.3-5.1 [facility] Comment on above: Performed By: #### L 500.4100, L500.4050 #### [facility] [address] [place], [address] Sodium [Moles/Vol] 139 mmol/L Normal 133-145 [facility] Comment on above: Performed By: #### L 500.4100, L500.4050 #### [facility] [address] [place], [address] T PROT 7.9 g/dL Normal 5.9-8.4 [facility] Comment on above: Performed By: #### L 500.4100, L500.4050 #### [facility] [address] [place], [address] Urea nitrogen [Mass/Vol] 7 mg/dL Normal 4-19 [facility] Comment on above: Performed By: #### L 500.4100, L500.4050 #### [facility] [address] [place], [address] Glomerular filtration rate ( GFR) estimation/1.73 sq m using serum, plasma, or whole bOrdered By: Roly Garcia on 10-01-2024 GFR/1.73 sq M.predicted among non-blacks MDRD (S/P/Bld) [Vol rate/Area] 110 mL/min/{1.73_m2} >60 [facility] Comment on above: mL/min/1.73m2 CKD-EP I Creatinine Equation (2020) LDL calc ser/plasOrdered By: Roly Garcia on 10-01-2024 Cholesterol in LDL [Mass/Vol] 101 mg/dL [facility] Comment on above: Aupbgjepdp=763-436 m g/dL & Higher Xliq=386 mg/dL or greater Laboratory - Chemistry and C hemistry - challengeOrdered By: Roly Garcia on 10-01-2024 AST [Catalytic activity/Vol] 18 U/L <38 [facility] Lipid Profileon 10-01-2024 CHOL:HDL 2.97 Normal [facility] Comment on above: Performed By: #### L 500.4100, L500.4050 #### [facility] [address] [place], [address] Cholesterol [Mass/Vol] 175 mg/dL Normal <=200 [facility] Comment on above: Result Comment: Chol esterol level, Desirable <200 mg/dL Borderline high cholesterol 200-239 mg/dL High cholesterol >=240 mg/dL Recommendations of the NCEP Adult Treatment Panel for the following risk-cutoff thresholds for the [place] population. Performed By: #### L 500.4100, L500.4050 #### [facility] [address] [place], [address] Cholesterol in HDL [Mass/Vol] 59 mg/dL Normal [facility] Comment on above: Result Comment: Wendi onal Cholesterol Education Program (NCEP) guidelines: <40 mg/dL: Low HDL-cholesterol (major risk factor for CHD) >= 60 mg/dL: High HDL-cholesterol (negative risk factor for CHD) HDL-cholesterol is affected by a number of factors, e.g. smoking, exercise, hormones, sex and age. Performed By: #### L 500.4100, L500.4050 #### [facility] [address] [place], [address] Cholesterol in LDL [Mass/Vol] 101 mg/dL Normal [facility] Comment on above: Result Comment: Bord esktsi=710-533 mg/dL Higher Dizo=655 mg/dL or greater Performed By: #### L 500.4100, L500.4050 #### [facility] [address] [place], [address] Cholesterol in VLDL [Mass/Vol] 15 mg/dL Normal 5-40 [facility] Comment on above: Performed By: #### L 500.4100, L500.4050 #### [facility] [address] [place], [address] Triglyceride [Mass/Vol] 73 mg/dL Normal [facility] Comment on above: Result Comment: The drugs N-Acetylcysteine and Metamizole may falsely depress this assay. Normal range: <150 mg/dL Borderline High: 150-199 mg/dL High: 200-499 mg/dL Very High: >500 mg/dL Performed By: #### L 500.4100, L500.4050 #### [facility] [address] [place], [address] Potassium measurement (mass/ volume)Ordered By: Roly Garcia on 10-01-2024 Potassium (Unsp spec) [Mass/Vol] 4.3 mmol/L 3.3-5.1 [facility] Screening total cholesterol/ high density lipoprotein (HDL) cholesterol ratioOrdered By: Roly Garcia on 10-01-2024 Cholesterol.total/Dhara sterol in HDL [Mass ratio] 2.97 {ratio} [facility] Serum creatinine measurement (mass/volume)Ordered By: Roly Garcia on 10-01-2024 Creatinine [Mass/Vol] 0.61 mg/dL Low 0.70-1.20 [facility] Serum globulin measurementOr dered By: Roly Garcia on 10-01-2024 Globulin (S) [Mass/Vol] 3.4 g/dL 2.2-4.2 [facility] Serum glucose measurement (m ass/volume)Ordered By: Roly Garcia on 10-01-2024 Glucose [Mass/Vol] 96 mg/dL 70-99 [facility] Serum or plasma alanine pastor otransferase (ALT) measurementOrdered By: Roly Garcia on 10-01-2024 ALT [Catalytic activity/Vol] 12 U/L <47 [facility] Serum or plasma albumin trip urement (mass/volume)Ordered By: Roly Garcia on 10-01-2024 Albumin [Mass/Vol] 4.5 g/dL 3.4-4.8 [facility] Serum or plasma albumin/glob ulin mass ratioOrdered By: Roly Garcia on 10-01-2024 Albumin/Globulin [Mass ratio] 1.3 {ratio} 0.9-2.4 [facility] Serum or plasma alkaline patel sphatase measurementOrdered By: Roly Garcia on 10-01-2024 ALP [Catalytic activity/Vol] 88 U/L 40-129 [facility] Serum or plasma calcium trip urement (mass/volume)Ordered By: Roly Garcia on 10-01-2024 Calcium [Mass/Vol] 9.9 mg/dL 7.6-11.0 [facility] Serum or plasma cholesterol in HDL measurement (mass/volume)Ordered By: Roly Garcia on 10-01-2024 Cholesterol in HDL [Mass/Vol] 59 mg/dL >40 [facility] Comment on above: National Cholesterol Education Program (NCEP) guidelines:<40 mg/dL: Low HDL-cholesterol (major risk factor for CHD)>= 60 mg/dL: High HDL-cholesterol (negative risk factor for CHD)HDL-cholesterol is affected by a number of factors, e.g. smoking, exercise, hormones, sex and age. Serum or plasma cholesterol measurement (mass/volume)Ordered By: Roly Garcia on 10-01-2024 Cholesterol [Mass/Vol] 175 mg/dL <201 [facility] Comment on above: Cholesterol level, D esirable <200 mg/dLBorderline high cholesterol 200-239 mg/dLHigh cholesterol >=240 mg/dLRecommendations of the NCEP Adult Treatment Panel for the following risk-cutoff thresholds for the [place] population. Serum or plasma urea nitroge n measurement (mass/volume)Ordered By: Roly Garcia on 10-01-2024 Urea nitrogen [Mass/Vol] 7 mg/dL 4-19 [facility] Sodium levelOrdered By: Roly Garcia on 10-01-2024 Sodium [Moles/Vol] 139 mmol/L 133-145 [facility] Total proteinOrdered By: Raisa Garcia on 10-01-2024 Protein [Mass/Vol] 7.9 g/dL 5.9-8.4 [facility] Triglycerides measurementOrd ered By: Roly Garcia on 10-01-2024 Triglyceride [Mass/Vol] 73 mg/dL <199 [facility] Comment on above: The drugs N-Acetylcy steine and Metamizole may falsely depress this assay. Normal range: <150 mg/dLBorderline High: 150-199 mg/dLHigh: 200-499 mg/dLVery High: >500 mg/dL Forearm 2 Viewson 06-07-2024 Forearm 2 Views [facility] Services [address] [place] [address] Forearm 2 Views MR#: [id number] Acct: [id number] Name: WILBUR PEARSON Rep #: [id number] : 1965 M 58 From: Jose Sumner DO PCP: Dr. Roly Garcia MD Status: REG CLI Study: Forearm 2 Views Date of Exam: 06/07/24 Exam# [id number] Ordering Dr: Jesse Scott [id number] INDICATION: arm injury EXAMINATION/TECHNIQU E: X-RAY - [...] 16:30 EST Reading Location ID and State: [facility] / [place] Tel [phone], Service support , CC: PEPE Weber; Dr. Roly Garcia MD Automation Controls Expert: Signed Normal [facility] Urgent Care Visit Reporton 0 06-07-2024 Urgent Care Visit Report [facility] [address], [address] [place] [address] OFFICE VISIT Date of Service: 06/07/24 MR#: [id number] Acct: [id number] Name: WILBUR PEARSON Rep #: [id number] : 1965 Provider: PEPE Weber Age/Sex: 58/M Location: [facility] Status: Signed Intake Vital Signs 04/30/24 15:59 [...] FOREARM PAIN Chief Complaint: left forearm pain Boat Rigger Required: No Is patient in pain?: Yes [...] additional pain when questioned. pt is from correction and has developmental disabilities [facility] Medical History (Updated 06/07/24 @ 16:21 by Jesse JACKSON, PA) Hyperlipidemia HTN (hypertension) Surgical History (Updated 04/30/24 @ 16:02 by Palak Wyman) No pertinent past surgical history Social History Smoking Status: Never smoker HPI HPI Chief Complaint: left forearm pain Details: WILBUR PEARSON, is a 58 M who presents to the office today for complaint of left forearm pain. Patient is brought in by his caregiver from a correction. Caregiver states the patient was involved in [...] vis,new,level 4 Diagnoses Strain of left forearm S56.560H Assessment and Plan Assessment and Plan (1) Strain of left forearm: Status: Acute Orders: Orders Forearm 2 Views Today S59.910J - Unspecified injury of unspecified forearm, initial [...] [place] Signature: Date (if applicable) CC: Normal [facility] Urgent Care Visit Reporton 1 06-30-2023 Urgent Care Visit Report [facility] [address], [address] [place] [address] OFFICE VISIT Date of Service: 04/30/24 MR#: [id number] Acct: [id number] Name: WILBUR PEARSON Rep #: [id number] : 1965 Provider: PEPE Rice Age/Sex: 58/M Location: [facility] Status: Signed Intake Vital Signs 04/30/24 15:59 Height 5 ft 6 in Weight: 149 lb 2 oz BMI 24.0 BP 154/78 H Blood Pressure Location Lt brachial Position Sitting Respiration 15 Pulse 92 Pulse Source NIBP Temp 99.0 F Temp Source Oral Pulse Oximetry (%) 99 Oxygen Delivery Method room air Intake Visit Reasons: ST/SNEEZING Chief Complaint: ST, sneezing Boat Rigger Required: No Is patient in pain?: No [...] pt received flu vaccine yesterday at 1500. manager case declines viral testing unless necessary. requesting order for prn tylenol for ST [facility] Medical History (Updated 04/30/24 @ 16:02 by [...] average body habitus Orientation: alert, awake/ nonverbal [facility] Head: normal to inspection Ears: hearing grossly [...] Date _ (more content not included)... Normal [facility] Comprehensive Metabolic Prof kely 03-29-2024 Albumin [Mass/Vol] 3.7 g/dL Normal 3.2-5.0 [facility] Comment on above: Performed By: #### L 500.4050, L500.4100 #### [facility] [address] [place], [address] Albumin/Globulin [Mass ratio] 0.9 {ratio} Normal 0.9-2.4 [facility] Comment on above: Performed By: #### L 500.4050, L500.4100 #### [facility] [address] [place], [address] ALK P 92 U/L Normal 45-117 [facility] Comment on above: Performed By: #### L 500.4050, L500.4100 #### [facility] [address] [place], [address] ALT [Catalytic activity/Vol] 23 U/L Normal 16-61 [facility] Comment on above: Performed By: #### L 500.4050, L500.4100 #### [facility] [address] [place], [address] AST [Catalytic activity/Vol] 13 U/L Low 15-37 [facility] Comment on above: Performed By: #### L 500.4050, L500.4100 #### [facility] [address] [place], [address] Bilirubin [Mass/Vol] 1.00 mg/dL Normal 0.20-1.00 [facility] Comment on above: Result Comment: For patients on eltrombopag therapy, use of Dimension Alta TBIL is not recommended. Performed By: #### L 500.4050, L500.4100 #### [facility] [address] [place], [address] BUN/CRE 13.1 RATIO Normal 10-20 [facility] Comment on above: Performed By: #### L 500.4050, L500.4100 #### [facility] [address] [place], [address] CA,Total 9.2 mg/dL Normal 8.5-10.1 [facility] Comment on above: Performed By: #### L 500.4050, L500.4100 #### [facility] [address] [place], [address] Chloride [Moles/Vol] 108 mmol/L High 98-107 [facility] Comment on above: Performed By: #### L 500.4050, L500.4100 #### [facility] [address] [place], [address] CO2 [Moles/Vol] 25.0 mmol/L Normal 21.0-32.0 [facility] Comment on above: Performed By: #### L 500.4050, L500.4100 #### [facility] [address] [place], [address] Creatinine [Mass/Vol] 0.61 mg/dL Low 0.70-1.30 [facility] Comment on above: Result Comment: The validity of the calculated GFR GFRAA in patients over 70 years has not been determined. Clinical correlation is essential. Performed By: #### L 500.4050, L500.4100 #### [facility] [address] [place], [address] EST GFR - AA 173 mL/min Normal >60 [facility] Comment on above: Result Comment: Afri can [place] GFR Calc Performed By: #### L 500.4050, L500.4100 #### [facility] [address] [place], [address] GAP 6 Normal 5-15 [facility] Comment on above: Performed By: #### L 500.4050, L500.4100 #### [facility] [address] [place], [address] GFR/1.73 sq M.predicted among non-blacks MDRD (S/P/Bld) [Vol rate/Area] 143 mL/min/{1.73_m2} Normal >60 [facility] Comment on above: Result Comment: Non- GFR Calc Performed By: #### L 500.4050, L500.4100 #### [facility] [address] [place], [address] Globulin (S) [Mass/Vol] 4.0 g/dL Normal 2.2-4.2 [facility] Comment on above: Performed By: #### L 500.4050, L500.4100 #### [facility] [address] [place], [address] Glucose [Mass/Vol] 100 mg/dL Normal 74-106 [facility] Comment on above: Result Comment: Fast ing Glucose result from 100 to 125 mg/dL suggests IMPAIRED HOMEOSTASIS per A.D.A. criteria. Performed By: #### L 500.4050, L500.4100 #### [facility] [address] [place], [address] Potassium [Moles/Vol] 4.0 mmol/L Normal 3.5-5.1 [facility] Comment on above: Performed By: #### L 500.4050, L500.4100 #### [facility] [address] [place], [address] Sodium [Moles/Vol] 139 mmol/L Normal 136-145 [facility] Comment on above: Performed By: #### L 500.4050, L500.4100 #### [facility] [address] [place], [address] T PROT 7.7 g/dL Normal 6.4-8.2 [facility] Comment on above: Performed By: #### L 500.4050, L500.4100 #### [facility] [address] [place], [address] Urea nitrogen [Mass/Vol] 8 mg/dL Normal 7-18 [facility] Comment on above: Performed By: #### L 500.4050, L500.4100 #### [facility] [address] [place], [address] Lipid Profileon 03-29-2024 Cholesterol [Mass/Vol] 152 mg/dL Normal 200 [facility] Comment on above: Result Comment: <200 mg/dL Desirable 200-240 mg/dL Borderline >240 mg/dL High Risk Performed By: #### L 500.4050, L500.4100 #### [facility] [address] [place], [address] Cholesterol in HDL [Mass/Vol] 72 mg/dL Normal [facility] Comment on above: Result Comment: The drugs N-Acetylcysteine and Metamizole may falsely depress this assay. Reference Range HDL <40 mg/dL Low HDL Cholesterol HDL >or= 60 mg/dL High HDL Cholesterol Performed By: #### L 500.4050, L500.4100 #### [facility] [address] [place], [address] Cholesterol in LDL [Mass/Vol] 69 mg/dL Normal 0-130 [facility] Comment on above: Performed By: #### L 500.4050, L500.4100 #### [facility] [address] [place], [address] Cholesterol in VLDL [Mass/Vol] 11 mg/dL Normal 5-40 [facility] Comment on above: Performed By: #### L 500.4050, L500.4100 #### [facility] [address] [place], [address] Triglyceride [Mass/Vol] 54 mg/dL Normal [facility] Comment on above: Result Comment: The drugs N-Acetylcysteine and Metamizole may falsely depress this assay. Serum Triglycerides Reference Interval Normal <150 mg/dL Borderline high 150 - 199 mg/dL High 200 - 499 mg/dL Very High > or = 500 mg/dL Performed By: #### L 500.4050, L500.4100 #### [facility] [address] [place], [address] Basic Metabolic Profile (BMP )on 11-10-2023 BUN/CRE 15.8 RATIO Normal 10-20 [facility] Comment on above: Performed By: #### L 500.2500 #### [facility] [address] [place], [address] CA,Total 9.8 mg/dL Normal 8.5-10.1 [facility] Comment on above: Performed By: #### L 500.2500 #### [facility] [address] [place], [address] Chloride [Moles/Vol] 105 mmol/L Normal 98-107 [facility] Comment on above: Performed By: #### L 500.2500 #### [facility] [address] [place], [address] CO2 [Moles/Vol] 25.0 mmol/L Normal 21.0-32.0 [facility] Comment on above: Performed By: #### L 500.2500 #### [facility] [address] [place], [address] Creatinine [Mass/Vol] 0.57 mg/dL Low 0.70-1.30 [facility] Comment on above: Result Comment: The validity of the calculated GFR GFRAA in patients over 70 years has not been determined. Clinical correlation is essential. Performed By: #### L 500.2500 #### [facility] [address] [place], [address] EST GFR - AA 188 mL/min Normal >60 [facility] Comment on above: Result Comment: Afri can Zimbabwean GFR Calc Performed By: #### L 500.2500 #### [facility] [address] [place], [address] GAP 7 Normal 5-15 [facility] Comment on above: Performed By: #### L 500.2500 #### [facility] [address] [place], [address] GFR/1.73 sq M.predicted among non-blacks MDRD (S/P/Bld) [Vol rate/Area] 155 mL/min/{1.73_m2} Normal >60 [facility] Comment on above: Result Comment: Non- GFR Calc Performed By: #### L 500.2500 #### [facility] [address] [place], [address] Glucose [Mass/Vol] 99 mg/dL Normal 74-106 [facility] Comment on above: Performed By: #### L 500.2500 #### [facility] [address] [place], [address] Potassium [Moles/Vol] 4.2 mmol/L Normal 3.5-5.1 [facility] Comment on above: Performed By: #### L 500.2500 #### [facility] [address] [place], [address] Sodium [Moles/Vol] 137 mmol/L Normal 136-145 [facility] Comment on above: Performed By: #### L 500.2500 #### [facility] [address] [place], [address] Urea nitrogen [Mass/Vol] 9 mg/dL Normal 7-18 [facility] Comment on above: Performed By: #### L 500.2500 #### [facility] [address] [place], [address] Basophil percentageOrdered B y: Roly Garcia on 09-27-2023 Chloride [Moles/Vol] 109 mmol/L 98-107 [facility] Cholesterol [Mass/Vol] 167 mg/dL <200 [facility] Comment on above: <200 mg/dL Desirable 200-240 mg/dL Borderline >240 mg/dL High Risk Glucose [Mass/Vol] 107 mg/dL 74-106 [facility] Comment on above: Fasting Glucose resu lt from 100 to 125 mg/dL suggests IMPAIRED HOMEOSTASIS per A.D.A. criteria. Potassium [Moles/Vol] 3.9 mmol/L 3.5-5.1 [facility] Sodium [Moles/Vol] 139 mmol/L 136-145 [facility] Triglyceride [Mass/Vol] 44 mg/dL <199 [facility] Comment on above: The drugs N-Acetylcy steine and Metamizole may falsely depress this assay.Serum Triglycerides Reference Interval Normal <150 mg/dL Borderline high 150 - 199 mg/dL High 200 - 499 mg/dL Very High > or = 500 mg/dL Laboratory - Chemistry and C hemistry - challengeOrdered By: Roly Garcia on 09-27-2023 Cholesterol in HDL [Mass/Vol] 88 mg/dL >40 [facility] Comment on above: The drugs N-Acetylcy steine and Metamizole may falsely depress this assay. Reference Range HDL <40 mg/dL Low HDL Cholesterol HDL >or= 60 mg/dL High HDL Cholesterol Cholesterol in LDL [Mass/Vol] 70 mg/dL 0-130 [facility] CO2 [Moles/Vol] 27.0 mmol/L 21.0-32.0 [facility] Urea nitrogen/Creatinine [Mass ratio] 7.9 mg/mg 10-20 [facility] No Panel InformationOrdered By: Roly Garcia on 09-27-2023 Estimated GFR (MDRD) Amer 166 mL/min >60 [facility] Comment on above: GFR Calc Estimated GFR (MDRD) Non-Af Amer 137 mL/min >60 [facility] Comment on above: Non- GFR Calc VLDL Cholesterol 9 mg/dL 5-40 [facility] Serum or plasma calcium trip urement (mass/volume)Ordered By: Roly Garcia on 09-27-2023 Calcium [Mass/Vol] 9.2 mg/dL 8.5-10.1 [facility] Serum or plasma creatinine m easurement (mass/volume)Ordered By: Roly Garcia on 09-27-2023 Creatinine [Mass/Vol] 0.63 mg/dL 0.70-1.30 [facility] Comment on above: The validity of the calculated GFR & GFRAA in patients over 70 years has not been determined. Clinical correlation is essential. Serum or plasma urea nitroge n measurement (mass/volume)Ordered By: Roly Garcia on 09-27-2023 Urea nitrogen [Mass/Vol] 5 mg/dL 7-18 [facility] Thin prep Papanicolaou smear with manual screeningOrdered By: Roly Garcia on 09-27-2023 Thin prep Papanicolaou smear with manual screening 3 5-15 [facility] CNPNon 05-19-2023 CNPN Telephone (PODIWS) WILBUR PEARSON ([id number]) 1965 M Date Time Provider Department 05/19/23 SASKIA VALENCIA During your visit today, we recorded the following information about you: Allergies As of Date: 05/19/2023 (No Known Allergies) Date Reviewed: 05/18/2023 Reviewed by: Yancy Flores RN - Fully Assessed Meds Comments as of 05/18/2023: 05/18/23-Patient unsure of medication. Mother states Coreg and Lisinopril but unsure of dose. Problem List As Of Date: 05/19/2023 (None) Encounter Status:Closed by NIELS UMANA on 05/19/23 [facility] TALHAOVon 05-18-2023 CNOV Office Visit (PODIWS) WILBUR PEARSON ([id number]) 1965 M Date Time Provider Department 05/18/23 3:00 PM SASKIA VALENCIA During your visit today, we recorded the following information about you: Yancy Flores RN 05/20/2023 6:44 AM Signed Patient presents with: Left Foot - New, nail care Right Foot - New, nail care Patient presents for nail care. Patient new to [facility]. Unsure of medications that he takes, Lives [...] b/l. Saskia Valencia DPM Podiatry [address] [facility] [address] Dept: [phone] Dept Allergies As of Date: 05/18/2023 (No Known Allergies) Date Reviewed: 05/18/2023 Reviewed by: Yancy Flores RN - Fully Assessed Reason for Visit: New [896592] nail care [Other] New [640058] nail care [Other] Primary Visit Diagnosis:Onychomyco sis [B35.1] Other Visit Diagnoses:Pain in toe of left foot [M79.675] Pain in toe of right foot [M79.674] Meds Comments as of 05/18/2023: 05/18/23-Patient unsure of medication. Mother states Coreg and Lisinopril but unsure of dose. Problem List As Of Date: 05/18/2023 (None) Encounter Status:Closed by SASKIA VALENCIA DPM on 05/20/23 Normal [facility] Basophil percentageon 2021 Chloride [Moles/Vol] 106 mmol/L 98-[address] [facility] [address] [facility] Work Phone: Cholesterol [Mass/Vol] 204 mg/dL <200 [facility] Work Phone: Comment on above: <200 mg/dL Desirable 200-240 mg/dL Borderline >240 mg/dL High Risk Glucose [Mass/Vol] 105 mg/dL 74-106 [facility] Work Phone: Comment on above: Fasting Glucose resu lt from 100 to 125 mg/dL suggests IMPAIRED HOMEOSTASIS per A.D.A. criteria. Potassium [Moles/Vol] 3.6 mmol/L 3.5-5.1 [facility] Work Phone: Sodium [Moles/Vol] 140 mmol/L 136-145 [facility] Work Phone: Triglyceride [Mass/Vol] 70 mg/dL [facility] Work Phone: Comment on above: The drugs N-Acetylcy steine and Metamizole may falsely depress this assay.Serum Triglycerides Reference Interval Normal <150 mg/dL Borderline high 150 - 199 mg/dL High 200 - 499 mg/dL Very High > or = 500 mg/dL Laboratory - Chemistry and C hemistry - challengeon 08-30-2021 CO2 [Moles/Vol] 27.0 mmol/L 21.0-32.0 [facility] Work Phone: Urea nitrogen/Creatinine [Mass ratio] 13.1 mg/mg 10-20 [facility] Work Phone: No Panel Informationon 08-30 Estimated GFR (MDRD) Amer 153 mL/min >60 [facility] Work Phone: Comment on above: GFR Calc Estimated GFR (MDRD) Non-Af Amer 126 mL/min >60 [facility] Work Phone: Comment on above: Non- GFR Calc Serum or plasma calcium trip urement (mass/volume)on 08-30-2021 Calcium [Mass/Vol] 9.6 mg/dL 8.5-10.1 [facility] Work Phone: Serum or plasma cholesterol in HDL measurement (mass/volume)on 08-30-2021 Cholesterol in HDL [Mass/Vol] 57 mg/dL [facility] Work Phone: Comment on above: The drugs N-Acetylcy steine and Metamizole may falsely depress this assay. Reference Range HDL <40 mg/dL Low HDL Cholesterol HDL >or= 60 mg/dL High HDL Cholesterol Serum or plasma cholesterol in VLDL measurement (mass/volume)on 08-30-2021 Cholesterol in VLDL [Mass/Vol] 14 mg/dL 5-40 [facility] Work Phone: Serum or plasma creatinine m easurement (mass/volume)on 08-30-2021 Creatinine [Mass/Vol] 0.69 mg/dL 0.70-1.30 [facility] Work Phone: Comment on above: The validity of the calculated GFR & GFRAA in patients over 70 years has not been determined. Clinical correlation is essential. Serum or plasma low density lipoprotein (LDL) cholesterol measurement (mass/volume)on 08-30-2021 Cholesterol in LDL [Mass/Vol] 133 mg/dL 0-130 [facility] Work Phone: Serum or plasma urea nitroge n measurement (mass/volume)on 08-30-2021 Urea nitrogen [Mass/Vol] 9 mg/dL 7-18 [facility] Work Phone: Thin prep Papanicolaou smear with manual screeningon 08-30-2021 Thin prep Papanicolaou smear with manual screening 7 5-15 [facility] Work Phone: Vital Signs Date Time Vital Sign Value Performing Clinician Faci lity 01-12-2025 14:18-0400 Body temperature 97.8 [degF] Dr. Roly Garcia MD Work Phone: [facility] 01-12-2025 14:18-0400 Diastolic blood pressure 100 mm[Hg] Dr. Roly Garcia MD Work Phone: [facility] 01-12-2025 14:18-0400 Heart rate 93 /min Dr. Roly Garcia MD Work Phone: [facility] 01-12-2025 14:18-0400 Respiratory rate 17 /min Dr. Roly Garcia MD Work Phone: [facility] 01-12-2025 14:18-0400 SaO2% (BldA) [Mass fraction] 100 % Dr. Roly Garcia MD Work Phone: [facility] 01-12-2025 14:18-0400 Systolic blood pressure 155 mm[Hg] Dr. Roly Garcia MD Work Phone: [facility] 01-12-2025 13:19-0400 Body height 167.[address] Roly Garcia MD Work Phone: [facility] 01-12-2025 13:19-0400 Body mass index (BMI) [Ratio] 25.3 kg/m2 Dr. Roly Garcia MD Work Phone: [facility] 01-12-2025 13:19-0400 Body weight 71.[address] Roly Garcia MD Work Phone: [facility] Encounters Encounter Date Encounter Type Care Provider Facility Start: 01-12-2025 End: 01-12-2025 Emergency department patient visit Dr. Roly Garcia MD Work Phone: -Emergency Department Work Phone: Start: 10-01-2024 End: 10-01-[address] Roly Garcia MD -[facility] [place] Work Phone: Start: 10-01-2024 End: 10-01-2024 ambulatory Roly Garcia Facility:[facility] Start: 06-07-2024 End: 06-07-2024 ambulatory Roly Garcia Facility:[facility] Start: 06-07-2024 End: 06-07-2024 ambulatory Roly Garcia Facility:[facility] Start: 04-30-2024 End: 04-30-2024 ambulatory Roly Garica Facility:[facility] Start: 03-29-2024 End: 03-29-2024 ambulatory Roly Garcia Facility:[facility] Start: 11-10-2023 End: 11-10-2023 ambulatory Roly Garcia Facility:[facility] Start: 09-27-2023 End: 09-27-2023 ambulatory [facility] Work Phone: Start: 09-27-2023 End: 09-27-2023 Patient encounter procedure [facility] Start: 05-19-2023 Telephone encounter Saskia Judd Work Phone: Podiatry Start: 05-18-2023 End: 05-18-2023 ambulatory SASKIA VALENCIA Facility:[facility] Start: 05-18-2023 End: 05-18-2023 Patient encounter procedure Saskia Valencia Work Phone: Podiatry Comment on above: Onychomycosis (Prima ry Dx); Pain in toe of left foot; Pain in toe of right foot Start: 08-30-2021 End: 08-30-2021 Patient encounter procedure [facility] Procedures Date Procedure Procedure Detail Performing Clinician Start: 01-12-2025 Plain x-ray of wrist Dr Rosa Garcia MD Work Phone: Plan of Treatment Date Care Activity Detail Author Start: 01-26-2033 Urine microalbumin profile DTaP,Tdap,Td Vaccine (2 - Td or Tdap) [facility] Start: 02-03-2023 Covid-19 Vaccine ( season) Covid-19 Vaccine ( season) [facility] Start: 02-03-2023 Influenza vaccination Influenza Vacc ine (#1) [facility] Start: 06-05-2022 Depression Assessment Depression Ass essment [facility] Start: 2019 Prostate specific an tigen measurement Prostate Cancer Screening Discussion [facility] Start: 2014 Shingrix Vaccine (1 of 2) Mathis grix Vaccine (1 of 2) [facility] Start: 2009 Diabetes Screening Diabetes Screenin g [facility] Start: 2009 Screening for malign ant neoplasm of colon [facility] Start: 1999 Lipid [facility] Start: 1982 Hepatitis C screening Hepatitis C Sc adiel [facility] Start: 1982 HIV screening [facility] Start: 1965 Hepatitis B Vaccine (1 of 3 - 3-dose series) Hepatitis B Vaccine (1 of 3 - 3-dose series) [facility] Patient Education ED Falguni white No Reduction ... [facility] Work Phone: Immunizations Immunization Date Immunization Notes Care Provider Juan Manuel boyce 03-04-2022 influenza, injectabl e, quadrivalent, preservative free [facility] 03-04-2022 influenza virus vaccine, unspecified formulation Saskia Valencia Work Phone: [facility] 05-19-2021 Covid (Moderna) [facility] 03-02-2021 influenza, injectabl e, quadrivalent, preservative free [facility] 03-02-2021 influenza, seasonal, injectable [facility] Work Phone: 07-14-2020 Covid (Moderna) [facility] 06-16-2020 Covid (Moderna) [facility] 03-03-2020 influenza, injectabl e, quadrivalent, preservative free [facility] 03-03-2020 influenza, seasonal, injectable [facility] Work Phone: 04-08-2019 influenza, injectabl e, quadrivalent, preservative free [facility] 04-08-2019 influenza, seasonal, injectable [facility] Work Phone: 03-19-2018 influenza, injectabl e, quadrivalent, preservative free [facility] 03-19-2018 influenza, seasonal, injectable [facility] Work Phone: 03-10-2017 influenza, injectabl e, quadrivalent, preservative free [facility] 03-10-2017 influenza, seasonal, injectable [facility] Work Phone: 03-03-2016 influenza, injectabl e, quadrivalent, preservative free [facility] 03-03-2016 influenza, seasonal, injectable [facility] Work Phone: 03-04-2015 influenza, injectabl e, quadrivalent, preservative free [facility] 03-04-2015 influenza, seasonal, injectable [facility] Work Phone: 02-27-2014 influenza, injectabl e, quadrivalent, preservative free [facility] 02-27-2014 influenza, seasonal, injectable [facility] Work Phone: 06-13-2013 Influenza virus vaccine [facility] Payers Date Payer Category Payer Self-pay [id number] 2021 Medicaid [id number] 1991 Medicare [id number] 1991 Medicare MEDICARE MEDICAR E A AND B [id number] 1991-Present [phone] [address] [address] [place] [address] Medicare [id number] Unknown [id number] Unknown [id number] Unknown [id number] Unknown [id number] Unknown [id number] Unknown [id number] Social History Date Type Detail Facility Start: 06-13-2013 Tobacco smoking stat us NHIS Unknown if ever smoked [facility] Start: 1965 Sex Assigned At Male [facility] Start: 05-18-2023 End: 01-12-2025 Tobacco smoking status NHIS Never smoked tobacco [facility] Start: 05-18-2023 Tobacco use and exposure Smokeless tobacco non-user [facility] Start: 05-18-2023 Alcohol intake Lifetime non-d emanuel (finding) [facility] Start: 05-18-2023 History of Social function [facility] Start: 05-18-2023 Tobacco use panel [facility] National Score (1-100), lower number is lower risk 80 [facility] Start: 1965 Sex Assigned At Not on file [facility] Radiology Diagnostic study note 01-12-2025 Note Date & Type Note Facility 01-12-2025 Radiology Diagnostic study note [facility] Imaging Services [address] [place], [place] [id number] Wrist min 3 Views MR#: [id number] Acct: [id number] Name: WILBUR PEARSON Rep #: [id number] : 1965 M 59 From: Farooq Cuadra MD PCP: Dr. Roly Garcia MD Status: REG E R Study:Wrist min 3 Views Date of Exam: Exam# [id number] Ordering Dr: Xin Arguello DO PROCEDURE: WRIST MIN 3 VIEWS 01/12/2025 REASON FOR EXAM: INJURY TECHNIQUE: WRIST MIN 3 VIEWS Laterality: COMPARISON: None. FINDINGS: Bones: Acute complex fracture of the distal radius extending to the radial carpal joint. Joints: No dislocation. Soft tissues: Soft tissue swelling. RAD/Wrist min 3 Views IMPRESSION: Acute complex fracture of the distal radius extending to the radial carpal joint. Reading Location: [id number] CC: Dr. Roly Garcia MD; Dr. Mark Arguello DO ~ [employer] Expert: Signed [facility] Progress note 05-20-2023 Note Date & Type Note Facility 05-20-2023 Note HNO ID: [id number] Author: Saskia Valencia Service: ? Author Type: Physician Type: [...] b/l. Saskia Valencia DPM Podiatry [address] [facility] [address] Dept: [phone] Dept [facility] History of Present illness Narrative [...] b/l. Saskia Valencia DPM Podiatry [address] [facility] [address] Dept: [phone] Dept Patient presents with: Left Foot - New, nail care Right Foot - New, nail care Patient presents for nail care. Patient new to [facility]. Unsure of medications that he takes, Lives with mother. States that he is not a diabetic. All toenail are long, thick and discolored. documented in this encounter [facility] Progress note 05-18-2023 Note Date & Type Note Facility 05-18-2023 Note HNO ID: [id number] Author: Yancy Flores, NANCY Service: ? Author Type: Registered Nurse Type: Progress Notes Filed: 05/20/2023 6:44 AM Note Text: Patient presents with: Left Foot - New, nail care Right Foot - New, nail care Patient presents for nail care. Patient new to [facility]. Unsure of medications that he takes, Lives with mother. States that he is not a diabetic. All toenail are long, thick and discolored. [facility] Evaluation note Note Date & Type Note Facility Evaluation note No assessment information availa [facility] Work Phone: Evaluation note Note Date & Type Note Facility Evaluation note Diagnosis Onychomycosis- Primary Dermatophytosis of nail Pain in toe of left foot Pain in limb Pain in toe of right foot Pain in limb documented in this encounter [facility] Reason for referral (narrative) Note Date & Type Note Facility Reason for referral (narrative) No reason for referral information available [facility] Work Phone: Summary Purpose Family History No Family History Records FoundNo Family History Records Found Advance Directives Advance Directive Response Recorded Date/ Time Do you have a Healthcare Power of Plating Inspector? No January 12, 2025 1:34pm Chief Complaint and Reason for Visit Chief Complaint Admit Date FASTING October 01, 2024 11: 59am upper extremity January 12, 2025 1: 18pm Additional Source Comments Goals (unrecognized section and content) Goals may be documented in a n alternate sectionGoals may be documented in an alternate sectionGoals may be documented in an alternate section Source Comments (unrecognize d section and content) In the event this informatio n is protected by the Federal Confidentiality of Alcohol and Drug Abuse Patient Records regulations: The Federal rules restrict any use of the information to criminally investigate or prosecute any alcohol or drug abuse patient.[facility] the event this information is protected by the Federal Confidentiality of Alcohol and Drug Abuse Patient Records regulations: The Federal rules restrict any use of the information to criminally investigate or prosecute any alcohol or drug abuse patient.[facility] Reason for Visit (unrecogniz ed section and content) Reason Comments New nail care (unrecognized sect ion and content) No Status Records FoundNo Status Records Found INFORMATION SOURCE (unrecogn ized section and content) DATE CREATED AUTHOR 05/20/2023 [facility] DATE CREATED AUTHOR AUTHOR'S MELECIOIZ ATION 10/10/2024 [facility] Care Teams (unrecognized sec tion and content) Team Status: Active Member Role Status Dates Dr. Gal Tellez MD Family Provider Active Dr. Roly Garcia MD Primary Care Provider Active Team Status: Inactive Member Role Status Dates Dr. Roly Garcia MD Primary Care Provider, Attending Provider Active Team Status: Active Member Role/Relationship Status Dates Dr. Roly Garcia MD Primary Care Provider Active Team Status: Inactive Member Role/Relationship Status Dates Dr. Roly Garcia MD Primary Care Provider Active Start: October 01, 2024 End: October 01, 2024 Dr. Roly Garcia MD Attending Provider Active Start: October 01, 2024 End: October 01, 2024 Dr. Roly Garcia MD Referring Provider Active Start: October 01, 2024 End: October 01, 2024 Team Status: Inactive Member Role/Relationship Status Dates Dr. Roly Garcia MD Primary Care Provider Active Start: January 12, 2025 End: January 12, 2025 Dr. Mark Arguello DO Referring Provider Active S tart: January 12, 2025 End: January 12, 2025 Dr. Mark Arguello DO Emergency Provider Active S tart: January 12, 2025 End: January 12, 2025 FOR RECORDS PERTAINING TO PATIENTS WHO ARE [...] BE BASED ON THE PRIMARY CLINICAL RECORDS. [facility] [employer] provides no warranty or guarantee of the accuracy or completeness of information in this document.
--- OUTSIDE RECORDS SUMMARY | 2025-01-12 22:34 | XMS RPT_ITS | CCD ---
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 Roly Garcia MD Primary Care Provider Dr. Roly Garcia MD Attending Provider Dr. Roly Garcia MD Referring Provider [phone] Dr. Mark Arguello DO Referring Provider Dr. Mark Arguello DO Emergency Provider Medications [...] 10-01-2024 Anion gap [Moles/Vol] 12 mmol/L 5-15 [facility] BUN/creatinine ratioOrdered By: Roly Garcia on 10-01-2024 Urea nitrogen/Creatinine [Mass ratio] 11.8 mg/mg 10- [facility] Bilirubin, totalOrdered By: Roly Garcia on 10-01-2024 Bilirubin [Mass/Vol] 0.93 mg/dL 0.00-1.30 [facility] Calculated very low density lipoprotein (VLDL) cholesterol measurementOrdered By: Roly Garcia on 10-01-2024 Calculated very low density lipoprotein (VLDL) cholesterol measurement 15 mg/dL -40 [facility] Carbon dioxide, total [Moles /volume] in Central venous bloodOrdered By: Roly Garcia on 10-01-2024 CO2 [Moles/Vol] 23.7 mmol/L 21.0-32.0 [facility] Chloride assayOrdered By: Pepe Garcia on 10-01-2024 Chloride [Moles/Vol] 103 mmol/L 98-108 [facility] Comprehensive Metabolic Prof ilon 10-01-2024 Albumin [Mass/Vol] 4.5 g/dL Normal 3.4-4.8 [facility] Comment on above: Performed By: #### L 500.4100, L500.4050 #### [facility] [address] [place], [place], [id number] Albumin/Globulin [Mass ratio] 1.3 {ratio} Normal 0.9-2.4 [facility] Comment on above: Performed By: #### L 500.4100, L500.4050 #### [facility] [address] [place], [address] ALK PHOS 88 U/L Normal 40-129 [facility] Comment on above: Performed By: #### L 500.4100, L500.4050 #### [facility] [address] [place], [address] ALT [Catalytic activity/Vol] 12 U/L Normal <=46 [facility] Comment on above: Performed By: #### L 500.4100, L500.4050 #### [facility] [address] [place], [address] AST [Catalytic activity/Vol] 18 U/L Normal <=37 [facility] Comment on above: Performed By: #### L 500.4100, L500.4050 #### [facility] [address] [place], [address] Bilirubin [Mass/Vol] 0.93 mg/dL Normal 0.00-1.30 [facility] Comment on above: Performed By: #### L 500.4100, L500.4050 #### [facility] [address] [place], [address] BUN/CRE 11.8 RATIO Normal 10-20 [facility] Comment on above: Performed By: #### L 500.4100, L500.4050 #### [facility] [address] [place], [address] Calcium [Mass/Vol] 9.9 mg/dL Normal 7.6-11.0 [facility] Comment on above: Performed By: #### L 500.4100, L500.4050 #### [facility] [address] [place], [address] Chloride [Moles/Vol] 103 mmol/L Normal 98-108 [facility] Comment on above: Performed By: #### L 500.4100, L500.4050 #### [place] [facility] [address] [place], [address] CO2 [Moles/Vol] 23.7 mmol/L Normal 21.0-32.0 [facility] Comment on above: Performed By: #### L 500.4100, L500.4050 #### [facility] [address] [place], [address] Creatinine [Mass/Vol] 0.61 mg/dL Low 0.70-1.20 [facility] Comment on above: Performed By: #### L 500.4100, L500.4050 #### [facility] [address] [place], [address] GAP 12 Normal 5-15 [facility] Comment on above: Performed By: #### L 500.4100, L500.4050 #### [facility] [address] [place], [address] GFR/1.73 sq M.predicted among non-blacks MDRD (S/P/Bld) [Vol rate/Area] 110 mL/min/{1.73_m2} Normal >60 [facility] Comment on above: Result Comment: mL/m in/1.73m2 CKD-EPI Creatinine Equation (2020) Performed By: #### L 500.4100, L500.4050 #### [facility] [address] [place], [address] Globulin (S) [Mass/Vol] 3.4 g/dL Normal 2.2-4.2 [facility] Comment on above: Performed By: #### L 500.4100, L500.4050 #### [facility] [address] [place], [address] Glucose [Mass/Vol] 96 mg/dL Normal 70-99 [facility] Comment on above: Performed By: #### L 500.4100, L500.4050 #### [facility] [address] [place], [address] Potassium [Moles/Vol] 4.3 mmol/L Normal 3.3-5.1 [facility] Comment on above: Performed By: #### L 500.4100, L500.4050 #### [facility] [address] [place], [address] Sodium [Moles/Vol] 139 mmol/L Normal 133-145 [facility] Comment on above: Performed By: #### L 500.4100, L500.4050 #### [facility] [address] [place], [address] T PROT 7.9 g/dL Normal 5.9-8.4 [facility] Comment on above: Performed By: #### L 500.4100, L500.4050 #### [facility] [address] [place], [address] Urea nitrogen [Mass/Vol] 7 mg/dL Normal 4-19 [facility] Comment on above: Performed By: #### L 500.4100, L500.4050 #### [facility] [address] [place], [address] Glomerular filtration rate ( GFR) estimation/1.73 sq m using serum, plasma, or whole bOrdered By: Roly Garcia on 10-01-2024 GFR/1.73 sq M.predicted among non-blacks MDRD (S/P/Bld) [Vol rate/Area] 110 mL/min/{1.73_m2} >60 [facility] Comment on above: mL/min/1.73m2 CKD-EP I Creatinine Equation (2020) LDL calc ser/plasOrdered By: Roly Garcia on 10-01-2024 Cholesterol in LDL [Mass/Vol] 101 mg/dL [facility] Comment on above: Jcreycnigu=538-445 m g/dL & Higher Cizr=710 mg/dL or greater Laboratory - Chemistry and C hemistry - challengeOrdered By: Roly Garcia on 10-01-2024 AST [Catalytic activity/Vol] 18 U/L <38 [facility] Lipid Profileon 10-01-2024 CHOL:HDL 2.97 Normal [facility] Comment on above: Performed By: #### L 500.4100, L500.4050 #### [facility] [address] [place], [address] Cholesterol [Mass/Vol] 175 mg/dL Normal <=200 [facility] Comment on above: Result Comment: Chol esterol level, Desirable <200 mg/dL Borderline high cholesterol 200-239 mg/dL High cholesterol >=240 mg/dL Recommendations of the NCEP Adult Treatment Panel for the following risk-cutoff thresholds for the [place] population. Performed By: #### L 500.4100, L500.4050 #### [facility] [address] [place], [address] Cholesterol in HDL [Mass/Vol] 59 mg/dL Normal [facility] Comment on above: Result Comment: Wendi onal Cholesterol Education Program (NCEP) guidelines: <40 mg/dL: Low HDL-cholesterol (major risk factor for CHD) >= 60 mg/dL: High HDL-cholesterol (negative risk factor for CHD) HDL-cholesterol is affected by a number of factors, e.g. smoking, exercise, hormones, sex and age. Performed By: #### L 500.4100, L500.4050 #### [facility] [address] [place], [address] Cholesterol in LDL [Mass/Vol] 101 mg/dL Normal [facility] Comment on above: Result Comment: Bord stwowl=110-966 mg/dL Higher Nycu=206 mg/dL or greater Performed By: #### L 500.4100, L500.4050 #### [facility] [address] [place], [address] Cholesterol in VLDL [Mass/Vol] 15 mg/dL Normal 5-40 [facility] Comment on above: Performed By: #### L 500.4100, L500.4050 #### [facility] [address] [place], [address] Triglyceride [Mass/Vol] 73 mg/dL Normal [facility] Comment on above: Result Comment: The drugs N-Acetylcysteine and Metamizole may falsely depress this assay. Normal range: <150 mg/dL Borderline High: 150-199 mg/dL High: 200-499 mg/dL Very High: >500 mg/dL Performed By: #### L 500.4100, L500.4050 #### [facility] [address] [place], [address] Potassium measurement (mass/ volume)Ordered By: Roly Garcia on 10-01-2024 Potassium (Unsp spec) [Mass/Vol] 4.3 mmol/L 3.3-5.1 [facility] Screening total cholesterol/ high density lipoprotein (HDL) cholesterol ratioOrdered By: Roly Garcia on 10-01-2024 Cholesterol.total/Dhara sterol in HDL [Mass ratio] 2.97 {ratio} [facility] Serum creatinine measurement (mass/volume)Ordered By: Roly Garcia on 10-01-2024 Creatinine [Mass/Vol] 0.61 mg/dL Low 0.70-1.20 [facility] Serum globulin measurementOr dered By: Roly Garcia on 10-01-2024 Globulin (S) [Mass/Vol] 3.4 g/dL 2.2-4.2 [facility] Serum glucose measurement (m ass/volume)Ordered By: Roly Garcia on 10-01-2024 Glucose [Mass/Vol] 96 mg/dL 70-99 [facility] Serum or plasma alanine pastor otransferase (ALT) measurementOrdered By: Roly Garcia on 10-01-2024 ALT [Catalytic activity/Vol] 12 U/L <47 [facility] Serum or plasma albumin trip urement (mass/volume)Ordered By: Roly Garcia on 10-01-2024 Albumin [Mass/Vol] 4.5 g/dL 3.4-4.8 [facility] Serum or plasma albumin/glob ulin mass ratioOrdered By: Roly Garcia on 10-01-2024 Albumin/Globulin [Mass ratio] 1.3 {ratio} 0.9-2.4 [facility] Serum or plasma alkaline patel sphatase measurementOrdered By: Roly Garcia on 10-01-2024 ALP [Catalytic activity/Vol] 88 U/L 40-129 [facility] Serum or plasma calcium trip urement (mass/volume)Ordered By: Roly Garcia on 10-01-2024 Calcium [Mass/Vol] 9.9 mg/dL 7.6-11.0 [facility] Serum or plasma cholesterol in HDL measurement (mass/volume)Ordered By: Roly Garcia on 10-01-2024 Cholesterol in HDL [Mass/Vol] 59 mg/dL >40 [facility] Comment on above: National Cholesterol Education Program (NCEP) guidelines:<40 mg/dL: Low HDL-cholesterol (major risk factor for CHD)>= 60 mg/dL: High HDL-cholesterol (negative risk factor for CHD)HDL-cholesterol is affected by a number of factors, e.g. smoking, exercise, hormones, sex and age. Serum or plasma cholesterol measurement (mass/volume)Ordered By: Roly Garcia on 10-01-2024 Cholesterol [Mass/Vol] 175 mg/dL <201 [facility] Comment on above: Cholesterol level, D esirable <200 mg/dLBorderline high cholesterol 200-239 mg/dLHigh cholesterol >=240 mg/dLRecommendations of the NCEP Adult Treatment Panel for the following risk-cutoff thresholds for the [place] population. Serum or plasma urea nitroge n measurement (mass/volume)Ordered By: Roly Garcia on 10-01-2024 Urea nitrogen [Mass/Vol] 7 mg/dL 4-19 [facility] Sodium levelOrdered By: Roly Garcia on 10-01-2024 Sodium [Moles/Vol] 139 mmol/L 133-145 [facility] Total proteinOrdered By: Raisa Garcia on 10-01-2024 Protein [Mass/Vol] 7.9 g/dL 5.9-8.4 [facility] Triglycerides measurementOrd ered By: Roly Garcia on 10-01-2024 Triglyceride [Mass/Vol] 73 mg/dL <199 [facility] Comment on above: The drugs N-Acetylcy steine and Metamizole may falsely depress this assay. Normal range: <150 mg/dLBorderline High: 150-199 mg/dLHigh: 200-499 mg/dLVery High: >500 mg/dL Forearm 2 Viewson 06-07-2024 Forearm 2 Views [facility] [address] [place] [address] Forearm 2 Views MR#: [id number] Acct: [id number] Name: WILBUR PEARSON Rep #: [id number] : 1965 M 58 From: Jose Sumner DO PCP: Dr. Roly Garcia MD Status: REG CLI Study: Forearm 2 Views Date of Exam: 06/07/24 Exam# [id number] Ordering Dr: Jesse Scott [id number] INDICATION: arm injury EXAMINATION/TECHNIQU E: X-RAY - [...] 16:30 EST Reading Location ID and State: [facility] / [place] Tel [phone], Service support , CC: PEPE Weber; Dr. Roly Garcia MD Socket Puller: Signed Normal [facility]gent Care Visit Reporton 0 06-07-2024 Urgent Care Visit Report [facility] [address], [address] [place] [address] OFFICE VISIT Date of Service: 06/07/24 MR#: [id number] Acct: [id number] Name: WILBUR PEARSON Rep #: [id number] : 1965 Provider: PEPE Weber Age/Sex: 58/M Location: [facility] [place] [place] Status: Signed Intake Vital Signs 04/30/24 15:59 [...] FOREARM PAIN Chief Complaint: left forearm pain Manual Lathe Operator Required: No Is patient in pain?: Yes [...] additional pain when questioned. pt is from assisted and has developmental disabilities [facility] Medical History (Updated 06/07/24 @ 16:21 [...] brought in by his caregiver from a assisted. Caregiver states the patient was involved in [...] vis,new,level 4 Diagnoses Strain of left forearm S56.357U Assessment and Plan Assessment and Plan (1) Strain of left forearm: Status: Acute Orders: Orders Forearm 2 Views Today S59.684D - Unspecified injury of unspecified forearm, initial [...] Wagner Signature: Date (if applicable) CC: Normal [facility] Visit Reporton 1 06-30-2023 Urgent Care Visit Report [facility] [address], [address] [place] [address] OFFICE VISIT Date of Service: 04/30/24 MR#: [id number] Acct: [id number] Name: WILBUR PEARSON Rep #: [id number] : 1965 Provider: PEPE Rice Age/Sex: 58/M Location: [facility] [place] [place] Status: Signed Intake Vital Signs 04/30/24 15:59 Height 5 ft 6 in Weight: 149 lb 2 oz BMI 24.0 BP 154/78 H Blood Pressure Location Lt brachial Position Sitting Respiration 15 Pulse 92 Pulse Source NIBP Temp 99.0 F Temp Source Oral Pulse Oximetry (%) 99 Oxygen Delivery Method room air Intake Visit Reasons: ST/SNEEZING Chief Complaint: ST, sneezing Manual Lathe Operator Required: No Is patient in pain?: No [...] flu vaccine yesterday at 1500. manager case management declines viral testing unless necessary. requesting order for prn tylenol for ST [facility] Medical History (Updated 04/30/24 @ 16:02 [...] average body habitus Orientation: alert, awake/ nonverbal [facility] Head: normal to inspection Ears: hearing [...] Date _ (more content not included)... Normal [facility] Comprehensive Metabolic Prof kely 03-29-2024 Albumin [Mass/Vol] 3.7 g/dL Normal 3.2-5.0 [facility] Comment on above: Performed By: #### L 500.4050, L500.4100 #### [facility] [address] [place], [address] Albumin/Globulin [Mass ratio] 0.9 {ratio} Normal 0.9-2.4 [facility] Comment on above: Performed By: #### L 500.4050, L500.4100 #### [facility] [address] [place], [address] ALK P 92 U/L Normal 45-117 [facility] Comment on above: Performed By: #### L 500.4050, L500.4100 #### [facility] [address] [place], [address] ALT [Catalytic activity/Vol] 23 U/L Normal 16-61 [facility] Comment on above: Performed By: #### L 500.4050, L500.4100 #### [facility] [address] [place], [address] AST [Catalytic activity/Vol] 13 U/L Low 15-37 [facility] Comment on above: Performed By: #### L 500.4050, L500.4100 #### [facility] [address] [place], [address] Bilirubin [Mass/Vol] 1.00 mg/dL Normal 0.20-1.00 [facility] Comment on above: Result Comment: For patients on eltrombopag therapy, use of Dimension [place] TBIL is not recommended. Performed By: #### L 500.4050, L500.4100 #### [facility] [address] [place], [address] BUN/CRE 13.1 RATIO Normal 10-20 [facility] Comment on above: Performed By: #### L 500.4050, L500.4100 #### [facility] [address] [place], [address] CA,Total 9.2 mg/dL Normal 8.5-10.1 [facility] Comment on above: Performed By: #### L 500.4050, L500.4100 #### [facility] [address] [place], [address] Chloride [Moles/Vol] 108 mmol/L High 98-107 [facility] Comment on above: Performed By: #### L 500.4050, L500.4100 #### [facility] [address] [place], [address] CO2 [Moles/Vol] 25.0 mmol/L Normal 21.0-32.0 [facility] Comment on above: Performed By: #### L 500.4050, L500.4100 #### [facility] [address] [place], [address] Creatinine [Mass/Vol] 0.61 mg/dL Low 0.70-1.30 [facility] Comment on above: Result Comment: The validity of the calculated GFR GFRAA in patients over 70 years has not been determined. Clinical correlation is essential. Performed By: #### L 500.4050, L500.4100 #### [facility] [address] [place], [address] EST GFR - AA 173 mL/min Normal >60 [facility] Comment on above: Result Comment: Afri can [place] GFR Calc Performed By: #### L 500.4050, L500.4100 #### [facility] [address] [place], [address] GAP 6 Normal 5-15 [facility] Comment on above: Performed By: #### L 500.4050, L500.4100 #### [facility] [address] [place], [address] GFR/1.73 sq M.predicted among non-blacks MDRD (S/P/Bld) [Vol rate/Area] 143 mL/min/{1.73_m2} Normal >60 [facility] Comment on above: Result Comment: Non- GFR Calc Performed By: #### L 500.4050, L500.4100 #### [facility] [address] [place], [address] Globulin (S) [Mass/Vol] 4.0 g/dL Normal 2.2-4.2 [facility] Comment on above: Performed By: #### L 500.4050, L500.4100 #### [facility] [address] [place], [address] Glucose [Mass/Vol] 100 mg/dL Normal 74-106 [facility] Comment on above: Result Comment: Fast ing Glucose result from 100 to 125 mg/dL suggests IMPAIRED HOMEOSTASIS per A.D.A. criteria. Performed By: #### L 500.4050, L500.4100 #### [facility] [address] [place], [address] Potassium [Moles/Vol] 4.0 mmol/L Normal 3.5-5.1 [facility] Comment on above: Performed By: #### L 500.4050, L500.4100 #### [facility] [address] [place], [address] Sodium [Moles/Vol] 139 mmol/L Normal 136-145 [facility] Comment on above: Performed By: #### L 500.4050, L500.4100 #### [facility] [address] [place], [address] T PROT 7.7 g/dL Normal 6.4-8.2 [facility] Comment on above: Performed By: #### L 500.4050, L500.4100 #### [facility] [address] [place], [address] Urea nitrogen [Mass/Vol] 8 mg/dL Normal 7-18 [facility] Comment on above: Performed By: #### L 500.4050, L500.4100 #### [facility] [address] [place], [address] Lipid Profileon 03-29-2024 Cholesterol [Mass/Vol] 152 mg/dL Normal 200 [facility] Comment on above: Result Comment: <200 mg/dL Desirable 200-240 mg/dL Borderline >240 mg/dL High Risk Performed By: #### L 500.4050, L500.4100 #### [facility] [address] [place], [address] Cholesterol in HDL [Mass/Vol] 72 mg/dL Normal [facility] Comment on above: Result Comment: The drugs N-Acetylcysteine and Metamizole may falsely depress this assay. Reference Range HDL <40 mg/dL Low HDL Cholesterol HDL >or= 60 mg/dL High HDL Cholesterol Performed By: #### L 500.4050, L500.4100 #### [facility] [address] [place], [address] Cholesterol in LDL [Mass/Vol] 69 mg/dL Normal 0-130 [facility] Comment on above: Performed By: #### L 500.4050, L500.4100 #### [facility] [address] [place], [address] Cholesterol in VLDL [Mass/Vol] 11 mg/dL Normal 5-40 [facility] Comment on above: Performed By: #### L 500.4050, L500.4100 #### [facility] [address] [place], [address] Triglyceride [Mass/Vol] 54 mg/dL Normal [facility] Comment on above: Result Comment: The drugs N-Acetylcysteine and Metamizole may falsely depress this assay. Serum Triglycerides Reference Interval Normal <150 mg/dL Borderline high 150 - 199 mg/dL High 200 - 499 mg/dL Very High > or = 500 mg/dL Performed By: #### L 500.4050, L500.4100 #### [facility] [address] [place], [address] Basic Metabolic Profile (BMP )on 11-10-2023 BUN/CRE 15.8 RATIO Normal 10-20 [facility] Comment on above: Performed By: #### L 500.2500 #### [facility] [address] [place], [address] CA,Total 9.8 mg/dL Normal 8.5-10.1 [facility] Comment on above: Performed By: #### L 500.2500 #### [facility] [address] [place], [address] Chloride [Moles/Vol] 105 mmol/L Normal 98-107 [facility] Comment on above: Performed By: #### L 500.2500 #### [facility] [address] [place], [address] CO2 [Moles/Vol] 25.0 mmol/L Normal 21.0-32.0 [facility] Comment on above: Performed By: #### L 500.2500 #### [facility] [address] [place], [address] Creatinine [Mass/Vol] 0.57 mg/dL Low 0.70-1.30 [facility] Comment on above: Result Comment: The validity of the calculated GFR GFRAA in patients over 70 years has not been determined. Clinical correlation is essential. Performed By: #### L 500.2500 #### [facility] [address] [place], [address] EST GFR - AA 188 mL/min Normal >60 [facility] Comment on above: Result Comment: Afri can [place] GFR Calc Performed By: #### L 500.2500 #### [facility] [address] [place], [address] GAP 7 Normal 5-15 [facility] Comment on above: Performed By: #### L 500.2500 #### [facility] [address] [place], [address] GFR/1.73 sq M.predicted among non-blacks MDRD (S/P/Bld) [Vol rate/Area] 155 mL/min/{1.73_m2} Normal >60 [facility] Comment on above: Result Comment: Non- GFR Calc Performed By: #### L 500.2500 #### [facility] [address] [place], [address] Glucose [Mass/Vol] 99 mg/dL Normal 74-106 [facility] Comment on above: Performed By: #### L 500.2500 #### [facility] [address] [place], [address] Potassium [Moles/Vol] 4.2 mmol/L Normal 3.5-5.1 [facility] Comment on above: Performed By: #### L 500.2500 #### [facility] [address] [place], [address] Sodium [Moles/Vol] 137 mmol/L Normal 136-145 [facility] Comment on above: Performed By: #### L 500.2500 #### [facility] [address] [place], [address] Urea nitrogen [Mass/Vol] 9 mg/dL Normal 7-18 [facility] Comment on above: Performed By: #### L 500.2500 #### [facility] [address] [place], [address] Basophil percentageOrdered B y: Roly Garcia on 09-27-2023 Chloride [Moles/Vol] 109 mmol/L 98-107 [facility] Cholesterol [Mass/Vol] 167 mg/dL <200 [facility] Comment on above: <200 mg/dL Desirable 200-240 mg/dL Borderline >240 mg/dL High Risk Glucose [Mass/Vol] 107 mg/dL 74-106 [facility] Comment on above: Fasting Glucose resu lt from 100 to 125 mg/dL suggests IMPAIRED HOMEOSTASIS per A.D.A. criteria. Potassium [Moles/Vol] 3.9 mmol/L 3.5-5.1 [facility] Sodium [Moles/Vol] 139 mmol/L 136-145 [facility] Triglyceride [Mass/Vol] 44 mg/dL <199 [facility] Comment on above: The drugs N-Acetylcy steine and Metamizole may falsely depress this assay.Serum Triglycerides Reference Interval Normal <150 mg/dL Borderline high 150 - 199 mg/dL High 200 - 499 mg/dL Very High > or = 500 mg/dL Laboratory - Chemistry and C hemistry - challengeOrdered By: Roly Garcia on 09-27-2023 Cholesterol in HDL [Mass/Vol] 88 mg/dL >40 [facility] Comment on above: The drugs N-Acetylcy steine and Metamizole may falsely depress this assay. Reference Range HDL <40 mg/dL Low HDL Cholesterol HDL >or= 60 mg/dL High HDL Cholesterol Cholesterol in LDL [Mass/Vol] 70 mg/dL 0-130 [facility] CO2 [Moles/Vol] 27.0 mmol/L 21.0-32.0 [facility] Urea nitrogen/Creatinine [Mass ratio] 7.9 mg/mg 10-20 [facility] No Panel InformationOrdered By: Roly Garcia on 09-27-2023 Estimated GFR (MDRD) Amer 166 mL/min >60 [facility] Comment on above: GFR Calc Estimated GFR (MDRD) Non-Af Amer 137 mL/min >60 [facility] Comment on above: Non- GFR Calc VLDL Cholesterol 9 mg/dL 5-40 [facility] Serum or plasma calcium trip urement (mass/volume)Ordered By: Roly Garcia on 09-27-2023 Calcium [Mass/Vol] 9.2 mg/dL 8.5-10.1 [facility] Serum or plasma creatinine m easurement (mass/volume)Ordered By: Roly Garcia on 09-27-2023 Creatinine [Mass/Vol] 0.63 mg/dL 0.70-1.30 [facility] Comment on above: The validity of the calculated GFR & GFRAA in patients over 70 years has not been determined. Clinical correlation is essential. Serum or plasma urea nitroge n measurement (mass/volume)Ordered By: Roly Garcia on 09-27-2023 Urea nitrogen [Mass/Vol] 5 mg/dL 7-18 [facility] Thin prep Papanicolaou smear with manual screeningOrdered By: Roly Garcia on 09-27-2023 Thin prep Papanicolaou smear with manual screening 3 5-15 [facility] CNPNon 05-19-2023 CNPN Telephone (PODIWS) WILBUR PEARSON ([id number]) 1965 M Date Time Provider Department 05/19/23 [...] Encounter Status:Closed by NIELS UMANA on 05/19/23 [facility] TALHAOVon 05-18-2023 CNOV Office Visit (PODIWS) WILBUR PEARSON ([id number]) 1965 M Date Time Provider Department 05/18/23 3:00 PM SASKIA VALENCIA During your visit today, we recorded the following information about you: Yancy Flores RN 05/20/2023 6:44 AM Signed Patient presents with: Left Foot - New, nail care Right Foot - New, nail care Patient presents for nail care. Patient new to [facility]. Unsure of medications that he takes, [...] b/l. Saskia Valencia DPM Podiatry [address] [facility] [address] Dept: [phone] Dept Allergies As of Date: 05/18/2023 (No Known Allergies) Date Reviewed: 05/18/2023 Reviewed by: Yancy Flores RN - Fully Assessed Reason for Visit: New [962746] nail care [Other] New [474344] nail care [Other] Primary Visit Diagnosis:Onychomyco sis [B35.1] Other Visit Diagnoses:Pain in toe of left foot [M79.675] Pain in toe of right foot [M79.674] Meds Comments as of 05/18/2023: 05/18/23-Patient unsure of medication. Mother states Coreg and Lisinopril but unsure of dose. Problem List As Of Date: 05/18/2023 (None) Encounter Status:Closed by SASKIA VALENCIA DPM on 05/20/23 Normal [facility] Basophil percentageon 2021 Chloride [Moles/Vol] 106 mmol/L 98-[address] [facility] Work Phone: Cholesterol [Mass/Vol] 204 mg/dL <200 [place] [facility] Work Phone: Comment on above: <200 mg/dL Desirable 200-240 mg/dL Borderline >240 mg/dL High Risk Glucose [Mass/Vol] 105 mg/dL 74-106 [facility] Work Phone: Comment on above: Fasting Glucose resu lt from 100 to 125 mg/dL suggests IMPAIRED HOMEOSTASIS per A.D.A. criteria. Potassium [Moles/Vol] 3.6 mmol/L 3.5-5.1 [facility] Work Phone: Sodium [Moles/Vol] 140 mmol/L 136-145 [facility] Work Phone: Triglyceride [Mass/Vol] 70 mg/dL [facility] Work Phone: Comment on above: The drugs N-Acetylcy steine and Metamizole may falsely depress this assay.Serum Triglycerides Reference Interval Normal <150 mg/dL Borderline high 150 - 199 mg/dL High 200 - 499 mg/dL Very High > or = 500 mg/dL Laboratory - Chemistry and C hemistry - challengeon 08-30-2021 CO2 [Moles/Vol] 27.0 mmol/L 21.0-32.0 [facility] Work Phone: Urea nitrogen/Creatinine [Mass ratio] 13.1 mg/mg 10-20 [facility] Work Phone: No Panel Informationon 08-30 Estimated GFR (MDRD) Amer 153 mL/min >60 [facility] Work Phone: Comment on above: GFR Calc Estimated GFR (MDRD) Non-Af Amer 126 mL/min >60 [facility] Work Phone: Comment on above: Non- GFR Calc Serum or plasma calcium trip urement (mass/volume)on 08-30-2021 Calcium [Mass/Vol] 9.6 mg/dL 8.5-10.1 [facility] Work Phone: Serum or plasma cholesterol in HDL measurement (mass/volume)on 08-30-2021 Cholesterol in HDL [Mass/Vol] 57 mg/dL [facility] Work Phone: Comment on above: The drugs N-Acetylcy steine and Metamizole may falsely depress this assay. Reference Range HDL <40 mg/dL Low HDL Cholesterol HDL >or= 60 mg/dL High HDL Cholesterol Serum or plasma cholesterol in VLDL measurement (mass/volume)on 08-30-2021 Cholesterol in VLDL [Mass/Vol] 14 mg/dL 5-40 [facility] Work Phone: Serum or plasma creatinine m easurement (mass/volume)on 08-30-2021 Creatinine [Mass/Vol] 0.69 mg/dL 0.70-1.30 [facility] Work Phone: Comment on above: The validity of the calculated GFR & GFRAA in patients over 70 years has not been determined. Clinical correlation is essential. Serum or plasma low density lipoprotein (LDL) cholesterol measurement (mass/volume)on 08-30-2021 Cholesterol in LDL [Mass/Vol] 133 mg/dL 0-130 [facility] Work Phone: Serum or plasma urea nitroge n measurement (mass/volume)on 08-30-2021 Urea nitrogen [Mass/Vol] 9 mg/dL 7-18 [facility] Work Phone: Thin prep Papanicolaou smear with manual screeningon 08-30-2021 Thin prep Papanicolaou smear with manual screening 7 5-15 [facility] Work Phone: Vital Signs Date Time Vital Sign Value Performing Clinician Faci lity 01-12-2025 14:18-0400 Body temperature 97.8 [degF] Dr. Roly Garcia MD Work Phone: [facility] 01-12-2025 14:18-0400 Diastolic blood pressure 100 mm[Hg] Dr. Roly Garcia MD Work Phone: [facility] 01-12-2025 14:18-0400 Heart rate 93 /min Dr. Roly Garcia MD Work Phone: [facility] 01-12-2025 14:18-0400 Respiratory rate 17 /min Dr. Roly Garcia MD Work Phone: [facility] 01-12-2025 14:18-0400 SaO2% (BldA) [Mass fraction] 100 % Dr. Roly Garcia MD Work Phone: [facility] 01-12-2025 14:18-0400 Systolic blood pressure 155 mm[Hg] Dr. Roly Garcia MD Work Phone: [facility] 01-12-2025 13:19-0400 Body height 167.[address] Roly Garcia MD Work Phone: [facility] 01-12-2025 13:19-0400 Body mass index (BMI) [Ratio] 25.3 kg/m2 Dr. Roly Garcia MD Work Phone: [facility] 01-12-2025 13:19-0400 Body weight 71.[address] Roly Garcia MD Work Phone: [facility] Encounters Encounter Date Encounter Type Care Provider Facility Start: 01-12-2025 End: 01-12-2025 Emergency department patient visit Dr. Roly Garcia MD Work Phone: -Emergency Department Work Phone: Start: 10-01-2024 End: 10-01-[address] Roly Garcia MD -[facility] [place] Work Phone: Start: 10-01-2024 End: 10-01-2024 ambulatory Roly Garcia Facility:[facility] Start: 06-07-2024 End: 06-07-2024 ambulatory Roly Garcia Facility:[facility] Start: 06-07-2024 End: 06-07-2024 ambulatory Roly Garcia Facility:[facility] Start: 04-30-2024 End: 04-30-2024 ambulatory Roly Garcia Facility:[facility] Start: 03-29-2024 End: 03-29-2024 ambulatory Roly Garcia Facility:[facility] Start: 11-10-2023 End: 11-10-2023 ambulatory Roly Garcia Facility:[facility] Start: 09-27-2023 End: 09-27-2023 ambulatory [facility] Work Phone: Start: 09-27-2023 End: 09-27-2023 Patient encounter procedure [facility] Start: 05-19-2023 Telephone encounter Saskia Judd Work Phone: Podiatry Start: 05-18-2023 End: 05-18-2023 ambulatory SASKIA VALENCIA Facility:[facility] Start: 05-18-2023 End: 05-18-2023 Patient encounter procedure Saskia Valencia Work Phone: Podiatry Comment on above: Onychomycosis (Prima ry Dx); Pain in toe of left foot; Pain in toe of right foot Start: 08-30-2021 End: 08-30-2021 Patient encounter procedure [facility] Procedures Date Procedure Procedure Detail Performing Clinician Start: 01-12-2025 Plain x-ray of wrist Dr Rosa Garcia MD Work Phone: Plan of Treatment Date Care Activity Detail Author Start: 01-26-2033 Urine microalbumin profile DTaP,Tdap,Td Vaccine (2 - Td or Tdap) [facility] Start: 02-03-2023 Covid-19 Vaccine ( season) Covid-19 Vaccine ( season) [facility] Start: 02-03-2023 Influenza vaccination Influenza Vacc ine (#1) [facility] Start: 06-05-2022 Depression Assessment Depression Ass essment [facility] Start: 2019 Prostate specific an tigen measurement Prostate Cancer Screening Discussion [facility] Start: 2014 Shingrix Vaccine (1 of 2) Mathis grix Vaccine (1 of 2) [facility] Start: 2009 Diabetes Screening Diabetes Screenin g [facility] Start: 2009 Screening for malign ant neoplasm of colon [facility] Start: 1999 [facility] Start: 1982 Hepatitis C screening Hepatitis C Sc adiel [facility] Start: 1982 HIV screening [facility] Start: 1964 Hepatitis B Vaccine (1 of 3 - 3-dose series) Hepatitis B Vaccine (1 of 3 - 3-dose series) [facility] Patient Education ED Falguni white No Reduction ... [facility] Work Phone: Immunizations Immunization Date Immunization Notes Care Provider Juan Manuel obyce 03-04-2022 influenza, injectabl e, quadrivalent, preservative free [facility] 03-04-2022 influenza virus vaccine, unspecified formulation Saskia Valencia Work Phone: [facility] 05-19-2021 Covid (Moderna) [facility] 03-02-2021 influenza, injectabl e, quadrivalent, preservative free [facility] 03-02-2021 influenza, seasonal, injectable [facility] Work Phone: 07-14-2020 Covid (Moderna) [facility] 06-16-2020 Covid (Moderna) [facility] 03-03-2020 influenza, injectabl e, quadrivalent, preservative free [facility] 03-03-2020 influenza, seasonal, injectable [facility] Work Phone: 04-08-2019 influenza, injectabl e, quadrivalent, preservative free [facility] 04-08-2019 influenza, seasonal, injectable [facility] Work Phone: 03-19-2018 influenza, injectabl e, quadrivalent, preservative free [facility] 03-19-2018 influenza, seasonal, injectable [facility] Work Phone: 03-10-2017 influenza, injectabl e, quadrivalent, preservative free [facility] 03-10-2017 influenza, seasonal, injectable [facility] Work Phone: 03-03-2016 influenza, injectabl e, quadrivalent, preservative free [facility] 03-03-2016 influenza, seasonal, injectable [facility] Work Phone: 03-04-2015 influenza, injectabl e, quadrivalent, preservative free [facility] 03-04-2015 influenza, seasonal, injectable [facility] Work Phone: 02-27-2014 influenza, injectabl e, quadrivalent, preservative free [facility] 02-27-2014 influenza, seasonal, injectable [facility] Work Phone: 06-13-2013 Influenza virus vaccine [facility] Payers Date Payer Category Payer Self-pay [id number] 2021 Medicaid [id number] 1991 Medicare [id number] 1991 Medicare MEDICARE MEDICAR E A AND B [id number] 1991-Present [phone] [address] [address] [place] [address] Medicare [id number] Unknown [id number] Unknown [id number] Unknown [id number] Unknown [id number] Unknown [id number] Unknown [id number] Social History Date Type Detail Facility Start: 06-13-2013 Tobacco smoking stat us NHIS Unknown if ever smoked [facility] Start: 1965 Sex Assigned At Male [facility] Start: 05-18-2023 End: 01-12-2025 Tobacco smoking status NHIS Never smoked tobacco [facility] Start: 05-18-2023 Tobacco use and exposure Smokeless tobacco non-user [facility] Start: 05-18-2023 Alcohol intake Lifetime non-d emanuel (finding) [facility] Start: 05-18-2023 History of Social function [facility] Start: 05-18-2023 Tobacco use panel [facility] National Score (1-100), lower number is lower risk 80 [facility] Start: 1965 Sex Assigned At Not on file [facility] Radiology Diagnostic study note 01-12-2025 Note Date & Type Note Facility 01-12-2025 Radiology Diagnostic study note [facility] Imaging Services [address] [place], [place] [id number] Wrist min 3 Views MR#: [id number] Acct: [id number] Name: WILBUR PEARSON Rep #: [id number] : 1965 M 59 From: Farooq Cuadra MD PCP: Dr. Roly Garcia MD Status: REG E R Study:Wrist min 3 Views Date of Exam: Exam# [id number] Ordering Dr: Xin Arguello DO PROCEDURE: WRIST [...] to the radial carpal joint. Reading Location: [id number] CC: Dr. Roly Garcia MD; Dr. Mark Arguello DO ~ Socket Puller: Signed [facility] Progress note 05-20-2023 Note Date & Type Note Facility 05-20-2023 Note HNO ID: [id number] Author: Saskia Valencia Service: ? Author Type: [...] b/l. Saskia Valencia DPM Podiatry [address] [facility] [address] Dept: [phone] Dept [facility] History of Present illness Narrative 05-20-2023 Saskia [...] b/l. Saskia Valencia DPM Podiatry [address] [facility] [address] Dept: [phone] Dept Patient presents with: Left Foot - New, nail care Right Foot - New, nail care Patient presents for nail care. Patient new to [facility]. Unsure of medications that he takes, Lives with mother. States that he is not a diabetic. All toenail are long, thick and discolored. documented in this encounter [facility] Progress note 05-18-2023 Note Date & Type Note Facility 05-18-2023 Note HNO ID: [id number] Author: Yancy Flores, NANCY Service: ? Author Type: Registered Nurse Type: Progress Notes Filed: 05/20/2023 6:44 AM Note Text: Patient presents with: Left Foot - New, nail care Right Foot - New, nail care Patient presents for nail care. Patient new to [facility]. Unsure of medications that he takes, Lives with mother. States that he is not a diabetic. All toenail are long, thick and discolored. [facility] Evaluation note Note Date & Type Note Facility Evaluation note No assessment information availa [facility] Work Phone: Evaluation note Note Date & Type Note Facility Evaluation note Diagnosis Onychomycosis- Primary Dermatophytosis of nail Pain in toe of left foot Pain in limb Pain in toe of right foot Pain in limb documented in this encounter [facility] Reason for referral (narrative) Note Date & Type Note Facility Reason for referral (narrative) No reason for referral information available [facility] Work Phone: Summary Purpose Family History No Family History Records FoundNo Family History Records Found Advance Directives Advance Directive Response Recorded Date/ Time Do you have a Healthcare Power of Health Technical Writer? No January 12, 2025 1:34pm Chief Complaint [...] or prosecute any alcohol or drug abuse [facility] event this information is protected by the Federal Confidentiality of Alcohol and Drug Abuse Patient Records regulations: The Federal rules restrict any use of the information to criminally investigate or prosecute any alcohol or drug abuse patient.[facility] Reason for Visit (unrecogniz ed section and content) Reason Comments New nail care (unrecognized sect ion and content) No Status Records FoundNo Status Records Found INFORMATION SOURCE (unrecogn ized section and content) DATE CREATED AUTHOR 05/20/2023 [facility] DATE CREATED AUTHOR AUTHOR'S MELECIOIZ ATION 10/10/2024 [facility] Care Teams (unrecognized sec tion and content) [...] PRIMARY CLINICAL RECORDS. [facility] [employer] provides no warranty or guarantee of the accuracy or completeness of information in this document.
--- NOTE | 2025-01-12 23:06 | CT_ITS ---
PROCEDURE: SPINE CERVICAL WITHOUT CONTRAS 01/12/2025 REASON FOR EXAM: FALL TECHNIQUE: SPINE CERVICAL WITHOUT CONTRAS Coronal and Sagittal reconstruction series were provided. One or more dose reduction techniques were used (e.g., Automated exposure control, adjustment of the mA and/or kV according to patient size, use of iterative reconstruction technique. RADIATION DOSE SUMMARY: CTDlvol: 23 mGy DLP: 497 mGycm COMPARISON: No FINDINGS: Cervical spine scoliosis and degeneration. No acute fracture or dislocation. No soft tissue injury. No apical pneumothorax. CT/Spine Cervical without Contras IMPRESSION: No acute injury Reading Location: [place] [address]
--- NOTE | 2025-01-12 23:06 | CT_ITS ---
PROCEDURE: BRAIN/HEAD WITHOUT CONTRAST 01/12/2025 REASON FOR EXAM: AMS TECHNIQUE: BRAIN/HEAD WITHOUT CONTRAST Coronal and Sagittal reconstruction series were provided. One or more dose reduction techniques were used (e.g., Automated exposure control, adjustment of the mA and/or kV according to patient size, use of iterative reconstruction technique. RADIATION DOSE SUMMARY: CTDlvol: 45 mGy DLP: 864 mGycm COMPARISON: No FINDINGS: Diffuse atrophy. Left frontal lobe encephalomalacia, possible remote trauma or ischemia. No acute abnormal brain densities. No intracranial hemorrhage. No hydrocephalus or midline shift. No acute scalp or skull pathology. Minimal sinus opacification. Unremarkable orbits. CT/Brain/Head without Contrast IMPRESSION: No acute intracranial findings. Reading Location: [place] [address]
--- NOTE | 2025-01-12 23:06 | CT_ITS ---
PROCEDURE: SPINE CERVICAL WITHOUT CONTRAS 01/12/2025 REASON FOR EXAM: FALL TECHNIQUE: SPINE CERVICAL WITHOUT CONTRAS Coronal and Sagittal reconstruction series were provided. One or more dose reduction techniques were used (e.g., Automated exposure control, adjustment of the mA and/or kV according to patient size, use of iterative reconstruction technique. RADIATION DOSE SUMMARY: CTDlvol: 23 mGy DLP: 497 mGycm COMPARISON: No FINDINGS: Cervical spine scoliosis and degeneration. No acute fracture or dislocation. No soft tissue injury. No apical pneumothorax. CT/Spine Cervical without Contras IMPRESSION: No acute injury Reading Location: [place] [address]
--- NOTE | 2025-01-12 23:06 | CT_ITS ---
PROCEDURE: BRAIN/HEAD WITHOUT CONTRAST 01/12/2025 REASON FOR EXAM: AMS TECHNIQUE: BRAIN/HEAD WITHOUT CONTRAST Coronal and Sagittal reconstruction series were provided. One or more dose reduction techniques were used (e.g., Automated exposure control, adjustment of the mA and/or kV according to patient size, use of iterative reconstruction technique. RADIATION DOSE SUMMARY: CTDlvol: 45 mGy DLP: 864 mGycm COMPARISON: No FINDINGS: Diffuse atrophy. Left frontal lobe encephalomalacia, possible remote trauma or ischemia. No acute abnormal brain densities. No intracranial hemorrhage. No hydrocephalus or midline shift. No acute scalp or skull pathology. Minimal sinus opacification. Unremarkable orbits. CT/Brain/Head without Contrast IMPRESSION: No acute intracranial findings. Reading Location: [place] [address]
--- NOTE | 2025-01-12 23:10 | EX.ED.DYSGE1 ---
HPI History of Present Illness Chief Complaint: Unresponsive Narrative Narrative: Patient is a 59-year-old male presenting to the emergency department for an episode of unresponsiveness per brother at bedside. Patient has a past medical history of developmental delay. He was here earlier after a fall and found to have a distal radial fracture and was placed in a splint. He received 1 dose of [place] here and then 1 at 7 PM at his snf. His brother went to check on him this evening and while he was with him noticed that his eyes rolled back in his head and he was not responsive for about 10 seconds. States he then became responsive and was acting baseline per brother. Patient has no complaints at this time. Brother states this is never happened before. He has not complained of anything. No fevers. For the visit earlier this morning it was after a fall while walking into [place]. He reportedly did not hit his head or have any loss of consciousness. [facility] Medical History Seizures Hyperlipidemia HTN (hypertension) Home Medications ?Medication ?Instructions ?Recorded ?Last Taken ?Type lisinopril 20 mg tablet 20 mg PO QDAY 04/30/24 01/12/25 History rosuvastatin 5 mg tablet 5 mg PO QDAY 04/30/24 Unknown History acetaminophen 500 mg tablet 500 mg PO Q6H PRN pain 01/12/25 Unknown History (Tylenol Extra Strength) hydrocodone-acetaminophen 5-325mg 1 tab PO Q4H PRN PRN Pain 2 days 01/12/25 01/12/25 Rx 5mg-325mg #12 TABLETS quetiapine 25 mg tablet 25 mg PO QHS 01/12/25 Unknown History Allergy/AdvReac Type Severity Reaction Status Date / Time No Known Allergies Allergy Verified 01/12/25 22:27 Surgical History No pertinent past surgical history Social History current occupational status: disabled Smoking Status: Never smoker ROS ROS ED ROS Narrative See HPI EXAM Physical Exam Narrative Exam Narrative: Vital signs: Reviewed General: Alert. Slow to respond, baseline per brother and sister in law at bedside. No acute distress HEENT: Head is normocephalic and atraumatic, sinuses nontender, pupils equal round and reactive. Nares are patent. Oropharynx and throat exams normal. Neck: Supple without lymphadenopathy nontender Cardiovascular: Regular rate and rhythm, no murmurs. No rubs or gallops. Normal S1 and S2 Respiratory: Clear to auscultation bilaterally. No wheezes, rales, rhonchi Abdominal: Soft and nontender. Normal bowel sounds. No guarding or rebound. Nonsurgical abdomen Extremities: Splint and sling to RUE. Able to wiggle fingers, sensation intact and cap refill less than 2 seconds. Moves all extremities Skin: No rash or redness. Neurological: Cranial nerves II through XII are grossly intact. Normal strength and sensation. The rest of the physical exam is unremarkable Const Vital Signs: 01/12/25 22:23 01/12/25 22:30 01/13/25 00:22 Temperature 98.2 F Temperature Source Oral Pulse Rate 88 80 Respiratory Rate 16 16 Respiratory Pattern Normal Blood Pressure 136/79 H Blood Pressure Mean 98 Pulse Ox 95 97 Oxygen Delivery Method Room Air 01/13/25 02:00 01/13/25 02:25 Temperature 98.8 F 98.7 F Temperature Source Oral Pulse Rate 76 68 Respiratory Rate 16 16 Respiratory Pattern Blood Pressure 107/64 117/72 Blood Pressure Mean 78 87 Pulse Ox 96 98 Oxygen Delivery Method Room Air MDM MDM MDM Narrative Medical decision making narrative: Patient is a 59-year-old male presenting to the emergency department for an episode of unresponsiveness that was witnessed by brother. Patient was seen and examined. Vitals are stable. Patient resting bed comfortably no acute distress. Differential includes but is not limited to: Intracranial bleed, hypoglycemia, seizure, electrolyte imbalance, medication side effect Visit from this morning was reviewed. Given the unresponsive episode and fall earlier will obtain a CT brain and cervical spine. Will also obtain CBC, BMP, VBG, [id number] glucose. Plan of care glucose within normal limits at 141. CBC with no leukocytosis and normal hemoglobin. BMP with no significant abnormalities. Urinalysis with no evidence of UTI. VBG shows no significant acidosis or alkalosis. CT brain shows no acute intracranial findings and CT cervical spine shows no acute injury. The episode was probably due to medication side effect. This was relayed to family at bedside. They were updated on the negative workup. Encouraged to space the narcotic out to every 8 hours. Patient discharged from the Emergency Department. I do not feel that the patient's evaluation reveals any acute reason for admission at this time. I instructed them to either follow-up with their primary care physician or promptly return to the Emergency Department for reevaluation should symptoms worsen or new symptoms develop. I explained what symptoms would indicate the need to return to the emergency department. Shared decision making was used. The patient voiced understanding of the treatment plan and is agreeable with it. History & Record Review Discussion w/independent historian: Patient and Family Lab Data Attestation: I reviewed the patient's lab results. Labs: Laboratory Results - last 24 hr 01/12/25 01/12/25 01/13/25 23:20 23:24 00:54 WBC 7.4 RBC 4.38 L Hgb 13.3 Hct 39.5 L MCV 90.2 MCH 30.4 MCHC 33.7 RDW Std Deviation 42.1 RDW Coeff of Marco 12.8 Plt Count 231 MPV 10.9 Immature Gran % (Auto) 0.100 Neut % (Auto) 66.6 Lymph % (Auto) 22.7 Archer % (Auto) 9.7 Eos % (Auto) 0.8 Baso % (Auto) 0.1 Absolute Neuts (auto) 4.9 Absolute Lymphs (auto) 1.69 Nucleated RBC % 0 Sodium 138 Potassium 3.9 Chloride 103 Carbon Dioxide 23.0 Anion Gap 12 BUN 11 Creatinine 0.60 L Estim Creat Clear Calc 129.56 Est GFR (MDRD) Non-Af 110 BUN/Creatinine Ratio 17.9 Glucose 141 H Calcium 9.6 Urine Color Yellow Urine Clarity Clear Urine pH 7.0 Ur Specific [place] 1.010 Urine Protein 30 H Urine Glucose (UA) Normal Urine Ketones Negative Urine Occult Blood Negative Urine Nitrite Negative Urine Bilirubin Negative Urine Urobilinogen 1 H Ur Leukocyte Esterase Negative Urine RBC 0-5 SEEN Urine WBC 0-5 SEEN Ur Squamous Epith Cells 0-5 SEEN Urine Bacteria RARE Hyaline Casts 5-10 SEEN Urine Mucus 2+ POC Glucose 138 H ABG Data ABG results: ABG 01/12/25 23:21 Specimen Type ABEL Sample Site Not entered VBG pH 7.42 VBG pO2 43 H VBG HCO3 26 VBG Total CO2 27 VBG O2 Sat (Calc) 80 H VBG Base Excess 1 POC Mix VBG pCO2 Pt Tmp 39.6 L O2 Delivery Device Room Air Radiography Diagnostic Testing: Clinical Impression(s) from Imaging Studies Brain CT 01/12/25 23:06 IMPRESSION: No acute intracranial findings. [facility] 01/12/25 23:06 IMPRESSION: No acute injury Reading Location: [place] [address] Discharge Plan Triage Chief Complaint: Unresponsive ED Provider: Mary Alice Uriarte Dx/Rx/DC Orders Clinical Impression: Side effect of medication, Episode of unresponsiveness Instructions: ED ALOC Prescriptions: No Action lisinopril 20 mg tablet 20 mg PO QDAY rosuvastatin 5 mg tablet 5 mg PO QDAY hydrocodone-acetaminophen 5-325 mg tablet 1 tab PO Q4H PRN PRN (Reason: Pain) 2 Days Qty: 12 0RF acetaminophen [Tylenol Extra Strength] 500 mg tablet 500 mg PO Q6H PRN (Reason: pain) quetiapine 25 mg tablet 25 mg PO QHS Primary Care Provider: Roly Garcia Referrals: Roly Garcia MD [Primary Care Provider] - 2 Days Activity Restrictions/Additional Instructions: I would recommend that you take the Percocet every 8 hours as needed for pain control. Alternate this with 600 mg of Motrin. For example, take motrin at noon, then percocet at 4 pm then motrin again at 8 pm. Please follow-up with the orthopedic doctor that was recommended this morning. Your evaluation in the Emergency Department did not reveal any acute reason for admission. However, I want to emphasize that you may be early in the course of a disease process or illness even if it is not present. For this reason you should follow-up within 24 hours for reevaluation with either your primary care physician or if necessary back here in the Emergency Department. You should return to the Emergency Department immediately if your symptoms worsen or new symptoms develop. Print Language: Malaysian Disposition Disposition: Home, Self Care Discharge Date/Time: 01/13/25 02:40
[2025-01-12 23:24] LABS: SITE Not entered; VBG BASE EXCESS 1 mmol/L (-1.0-3.5); VBG PO2 43 mmHg (25-40); VBG SO2 80 % (50-70); VBG TCO2 27 mmol/L (23-33)
[2025-01-13 00:18] LABS: Hematocrit 39.5 % (40-54); Hemoglobin 13.3 g/dL (13.0-16.5); Immature Granulocytes Count 0.010 X10^3/uL (0.0-0.0); Mean Corp Hgb Conc 33.7 g/dL (32-36); Mean Corpuscular Volume 90.2 fL (80-94); Mean Platelet Vol. 10.9 fl (6.2-12.0); NRBC Flagged by Analyzer 0 % (0-5); Platelet Count 231 K/mm3 (150-450); RBC Distribution Width CV 12.8 % (11.6-14.6); RBC Distribution Width SD 42.1 fl (35.1-43.9); Red Blood Count 4.38 M/mm3 (4.6-6.2); White Blood Count 7.4 K/mm3 (4.4-11.0)
[2025-01-13 00:22] VITALS: PULSE 80; RESP 16; O2SAT 97
[2025-01-13 00:45] LABS: Anion Gap 12 (5-15); BUN 11 mg/dL (4-19); BUN/Creat Ratio 17.9 RATIO (10-20); Calcium,Total 9.6 mg/dL (7.6-11.0); Carbon Dioxide 23.0 mmol/L (21.0-32.0); Chloride 103 mmol/L (98-108); Estimated Creatinine Clearance 129.56 ml/min (50-250); Glucose 141 mg/dL (70-99); Potassium 3.9 mmol/L (3.3-5.1)
[2025-01-13 01:01] LABS: Color, Urine Yellow (Yellow); Glucose, Dipstick Normal (Normal); Ketone-Dipstick Negative (Negative); Leukocyte Esterase-Dipstick Negative /ul (Negative); Nitrite-Dipstick Negative (Negative); Occult Blood-Urine Negative /ul (Negative); Protein-Dipstick 30 mg/dl (Negative); Specific Gravity, Urine 1.010 (1.002-1.030); Urine Bilirubin Dipstick Negative (Negative)
[2025-01-13 02:00] VITALS: BP 107/64; PULSE 76; RESP 16; TEMP 37.1; O2SAT 96
[2025-01-13 02:15] LABS: Red Blood Cells-Urine 0-5 SEEN /hpf (0-5); Squamous Epithelial Cells - UA 0-5 SEEN /hpf (0-5)
[2025-01-13 02:17] LABS: Mucous, Urine 2+ /hpf (<or=2+)
[2025-01-13 02:25] VITALS: BP 117/72; PULSE 68; RESP 16; TEMP 37.1; O2SAT 98
== END 2025-01-13 02:40 | disposition home or self-care (01) ==
PROVIDERS: Emergency Provider Student in an Organized Health Care Education/Training Program; PCP Family Medicine; Visit Provider Student in an Organized Health Care Education/Training Program
DX: T50.905A Adverse effect of unspecified drugs, medicaments and biological substances, initial encounter (principal)
CPT/HCPCS: 70450; 72125; 80048; 81001; 82803; 82962; 85025; 99285; A4216

== ENCOUNTER → 2025-01-17 | Outpatient (CLI) | payer MEDICARE, MEDICAID, SELFPAY ==
[2025-01-17 16:00] LABS: PSA,Total - Annual Screen 2.80 ng/mL (0.02-4.00)
== END | disposition home or self-care (01) ==
LOC: MFPLAB 11:58
PROVIDERS: PCP Family Medicine; Visit Provider Family Medicine
DX: Z12.5 Encounter for screening for malignant neoplasm of prostate (principal)
CPT/HCPCS: 36415; 84153; G0103

== ENCOUNTER → 2025-04-03 | Outpatient (CLI) | payer MEDICARE, MEDICAID, SELFPAY ==
[2025-04-03 18:58] LABS: Magnesium 2.1 mg/dL (1.5-2.2)
== END | disposition home or self-care (01) ==
LOC: MTLAB 14:36
PROVIDERS: PCP Family Medicine
DX: R56.9 Unspecified convulsions (principal); E78.5 Hyperlipidemia, unspecified
CPT/HCPCS: 36415; 83735; 84443

== ENCOUNTER → 2025-04-10 | Outpatient (CLI) | payer MEDICARE, MEDICAID, SELFPAY ==
--- NOTE | 2025-04-10 17:17 | MRI_ITS ---
PROCEDURE: MRI/Brain without Contrast
== END | disposition home or self-care (01) ==
LOC: MRI 16:56
PROVIDERS: PCP Family Medicine
DX: R56.9 Unspecified convulsions (principal); F88 Other disorders of psychological development; Z87.820 Personal history of traumatic brain injury
CPT/HCPCS: 70551

== ENCOUNTER 2025-04-28 08:21 | Outpatient (CLI) | payer MEDICARE, MEDICAID, SELFPAY ==
--- NOTE | 2025-04-28 08:24 | ECHOD_ITS ---
Reason For Study Reason For Study: PALPITATIONS Procedure This was a 2D Doppler, Color Flow transthoracic echocardiogram. Exam performed in department. Left Ventricle Normal LV size. Left ventricular systolic function is normal. The left ventricular ejection fraction is 60 %. Stage 1 diastolic dysfunction. No regional wall motion abnormalities noted. Right Ventricle Normal RV size. Normal systolic function. Atria Normal left atrium. Normal right atrium. Mitral Valve Normal mitral valve. Tricuspid Valve Normal tricuspid valve. Mild (1+) tricuspid valve insufficiency. Pulmonary artery systolic pressure is 32 mmHg. Aortic Valve Trisinus/trileaflet aortic valve. Mild focal aortic valve calcification. Pulmonic Valve Normal pulmonic valve. Great Vessels Normal aortic root. The pulmonary artery is normal size. Inferior vena cava collapse with respiration. Pericardium/Pleural No pericardial effusion. MMode/2D Measurements & Calculations LVIDd: 3.8 cm IVSd: 1.1 cm Ao root diam: 3.7 cm LVIDs: 2.2 cm LVPWd: 1.1 cm RVDd: 4.1 cm FS: 41.4 % LAV(MOD-bp): 39.6 ml LVAd ap4: 22.7 cm2 LVAd ap2: 21.1 cm2 LAV(MOD-bp) Indexed: 22.4 ml/m2 LVLd ap4: 6.7 cm LVLd ap2: 7.1 cm LAV(MOD-sp2): 39.7 ml EDV(MOD-sp4): 62.7 ml EDV(MOD-sp2): 52.2 ml LAV(MOD-sp4): 36.3 ml EDV(sp4-el): 65.2 ml EDV(sp2-el): 53.4 ml LVAs ap4: 12.7 cm2 LVAs ap2: 12.5 cm2 LVLs ap4: 5.8 cm LVLs ap2: 6.0 cm ESV(MOD-sp4): 22.7 ml ESV(MOD-sp2): 21.7 ml ESV(sp4-el): 23.4 ml ESV(sp2-el): 22.1 ml EF(MOD-sp4): 63.9 % EF(MOD-sp2): 58.4 % EF(sp4-el): 64.1 % SV(MOD-sp4): 40.0 ml SV(MOD-sp2): 30.5 ml SV(sp4-el): 41.8 ml SI(MOD-sp4): 22.6 ml/m2 SI(MOD-sp2): 17.2 ml/m2 LA A4 area: 15.7 cm2 LA dimension(2D): 3.4 cm RA A4 area: 12.3 cm2 TAPSE: 1.7 cm Time Measurements MV dec time: 0.17 sec Doppler Measurements & Calculations MV E max jonas: 77.4 cm/sec Lat Peak E' Jonas: 8.5 cm/sec Med Peak E' Jonas: 6.5 cm/sec MV A max jonas: 94.2 cm/sec E/E' lat: 9.1 E/E' med: 12.0 MV E/A: 0.82 Ao V2 max: 117.0 cm/sec LV V1 max: 96.7 cm/sec MV dec slope: 449.7 cm/sec2 Ao max P.5 mmHg LV V1 max P.7 mmHg Ao V2 mean: 87.4 cm/sec LV V1 mean P.0 mmHg Ao mean P.4 mmHg LV V1 mean: 66.8 cm/sec Ao V2 VTI: 27.6 cm LV V1 VTI: 20.8 cm AV (velocity ratio): 0.75 PA V2 max: 93.1 cm/sec TR max jonas: 265.1 cm/sec TR max P.1 mmHg ECHO/Echo Complete Interpretation Summary Normal LV size. Left ventricular systolic function is normal. The left ventricular ejection fraction is 60 %. Stage 1 diastolic dysfunction. Mild (1+) tricuspid valve insufficiency. Pulmonary artery systolic pressure is 32 mmHg. Ordering Physician: Melissa Crump Referring Physician: Roly Garcia Performed By: Elder Knapp RDCS
--- NOTE | 2025-04-28 08:24 | EKG12_ITS ---
Test Reason : PALPS Blood Pressure : */* mmHG Vent. Rate : 71 BPM Atrial Rate : 71 BPM P-R Int : 180 ms QRS Dur : 78 ms QT Int : 412 ms P-R-T Axes : 41 -26 -4 degrees QTcB Int : 447 ms Normal sinus rhythm Moderate voltage criteria for LVH, may be normal variant Nonspecific T wave abnormality Abnormal ECG Confirmed by YOSHI RIVERA, OTTONIEL ([id number]), editor city MELISSA MEDINA ([id number]) on 04/29/2025 10:21:32 AM Referred By: Melissa Crump Confirmed By: OTTONIEL BELLE MD
== END 2025-04-28 23:59 | disposition home or self-care (01) ==
LOC: CVS 08:22
PROVIDERS: PCP Family Medicine
DX: R00.0 Tachycardia, unspecified (principal); I10 Essential (primary) hypertension; I51.7 Cardiomegaly
CPT/HCPCS: 93005; 93306

== ENCOUNTER 2025-05-01 16:25 | Emergency (ER) | payer MEDICARE, MEDICAID, SELFPAY ==
[2025-05-01 16:25] VITALS: BP 137/78; PULSE 121; PULSE 123; RESP 14; TEMP 36.6; O2SAT 94; BMI 27.3
--- NOTE | 2025-05-01 16:50 | EKG12_ITS ---
Test Reason : SOB Blood Pressure : */* mmHG Vent. Rate : 116 BPM Atrial Rate : 116 BPM P-R Int : 180 ms QRS Dur : 82 ms QT Int : 326 ms P-R-T Axes : 33 -11 -3 degrees QTcB Int : 453 ms Sinus tachycardia Minimal voltage criteria for LVH, may be normal variant ( R in aVL ) Nonspecific T wave abnormality Abnormal ECG Confirmed by KJ HALLMAN ([id number]), script editor MELISSA PINTO ([id number]) on 05/05/2025 6:38:25 AM Referred By: KWESI/ABHILASH Confirmed By: KJ HALLMAN
[2025-05-01 16:53] VITALS: O2SAT 94
--- OUTSIDE RECORDS SUMMARY | 2025-05-01 17:33 | XMS RPT_ITS | CCD ---
Author Organization [facility] Care Team Providers Care Home Improvement Advisor Name Role Phone Unavailable Primary Care Provider UnavailSASKIA Laird Attending Unavailable Jose RIVERA, Dr. Dunham Primary Care Provider [phone] Jose RIVERA, Dr. Dunham Attending Provider [phone] Jose RIVERA, Dr. Dunham Referring Provider [phone] Saundra COPELAND, Dr. Flores Referring Provider Saundra COPELAND, Dr. Flores Emergency Provider Kalani RIVERA, Dr. Wheat Emergency Provider Unavailab le Saundra COPELAND, Dr. Flores Attending Provider Kalani RIVERA, Dr. Wheat Attending Provider Unavailab Roly Almodovar Primary Care Unavailable Melissa Crump Attending Unavailable Melissa Crump Referring Unavailable Garcia, Roly Primary Care Unavailable SkylardnMelissa diop Referring Unavailable Melissa Crump Attending Unavailable Garcia, Roly Primary Care Unavailable Melissa Crump Referring Unavailable Melissa Crump Attending Unavailable Jose, Roly Primary Care Unavailable GarciaRoly castellanos Attending Unavailable Roly Garcia Referring Unavailable UngurMark Attending Unavailable Ungeduarda, Mark Referring Unavailable Garcia, Roly Primary Care Unavailable Mary Alice Uriarte Attending Unavailable Jose, Roly Primary Care Unavailable Garcia, Roly Attending Unavailable Garcia, Roly Primary Care Unavailable Garcia, Roly Primary Care Unavailable Melissa Crump Attending Unavailable Melissa Crump Referring Unavailable Garcia, Roly Referring Unavailable Garcia, Roly Primary Care Unavailable Melissa Crump Attending Unavailable Angelo Simon Attending Unavailable Jose, Roly Primary Care Unavailable Garcia, Roly Referring Unavailable Garcia, Roly Primary Care Unavailable Garcia, Roly Referring Unavailable Jesse Hernandez Attending Unavailable Jesse Hernandez Referring Unavailable Roly Garcia Primary Care Unavailable Jesse Hernandez Attending Unavailable Medications Current Medications Medication Drug Class(es) Dates Sig (Normalized) Sig (Original) acetaminophen 500 mg oral tablet (2 sources) Start: 01-12-2025 take 1 tablet by mouth every six hours as needed for pain Acetaminophen (Tylenol Extra Strength) 500 mg tablet Active 500 mg PO EVERY 6 HOURS as needed for pain January 12, 2025 12:00am acetaminophen 325 mg / HYDROcodone bitartrate 5 mg oral tablet (3 sources) Opioid Agonist Start: 01-12-2025 take 1 tablet by mouth every four hours as needed for pain Hydrocodone-Acetam inophen 5-325 mg tablet Active 1 {tbl} PO EVERY 4 HOURS NEEDED as needed for Pain 12 2 0 January 12, 2025 Fracture of distal end of right radius lisinopril 20 mg oral tablet (3 sources) Angiotensin Converting Enzyme Inhibitor Start: 04-30-2024 take 1 tablet by mouth once daily Lisinopril 20 mg tablet Active 20 mg PO daily April 30, 2024 1:00am QUEtiapine 25 mg oral tablet (2 sources) Atypical Antipsychotic Start: 01-12-2025 take 1 tablet by mouth at bedtime Quetiapine 25 mg tablet Active 25 mg PO AT BEDTIME January 12, 2025 12:00am rosuvastatin calcium 5 mg oral tablet (3 sources) HMG-CoA Reductase Inhibitor Start: 04-30-2024 take 1 tablet by mouth once daily Rosuvastatin 5 mg tablet Active 5 mg PO daily April 30, 2024 1:00am Completed/Discontinued Medications Medication Drug Class(es) Dates Sig (Normalized) Sig (Original) amoxicillin 500 mg oral tablet (3 sources) Penicillin-class Antibacterial Start: 04-30-2024 End: 06-07-2024 take 1 tablet by mouth three times daily Amoxicillin 500 mg tablet Discontinued 500 mg PO THREE TIMES A DAY 30 0 April 30, 2024 1:00am June 07, 2024 5:13pm naproxen 375 mg oral tablet (3 sources) Nonsteroidal Anti-inflammatory Drug Start: 06-07-2024 End: 01-12-2025 take 1 tablet by mouth twice daily as needed for pain Naproxen 375 mg tablet Discontinued 375 mg PO TWICE A DAY as needed for pain 14 0 June 07, 2024 1:00am January 12, 2025 10:32pm Problems Active Problems Problem Classification Problem Date Documented Date Episodic/Chronic Complications of surgical procedures or medical care (2 sources) Drug therapy finding; Translations: [Unspecified adverse effect of drug or medicament, initial encounter] 01-13-2025 Episodic Developmental disorders (1 source) Other disorders of psychological development; 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] Onset: 04-10-2025 Chronic Disorders of lipid metabolism (5 sources) Hyperlipidemia; Translations: [Hyperlipidemia, unspecified] Onset: 10-07-2024 04-30-2024 Chronic Epilepsy; convulsions (2 sources) Unspecified convulsions; Translations: [Unspecified convulsions] Onset: 04-10-2025 Episodic Essential hypertension (3 sources) Hypertensive disorder; Translations: [Essential (primary) hypertension] 04-30-2024 Chronic Fracture of upper limb (4 sources) Fracture of distal end of right radius; Translations: [Unspecified fracture of the lower end of right radius, initial encounter for closed fracture] Onset: 01-12-2025 01-12-2025 Episodic Intracranial injury (1 source) Personal history of traumatic brain injury; Translations: [Personal history of traumatic brain injury] Onset: 04-10-2025 Episodic Mycoses (1 source) Onychomycosis; Translations: [Tinea unguium] 05-20-2023 Episodic Other and ill-defined heart disease (1 source) Cardiomegaly; Translations: [Cardiomegaly] Onset: 04-09-2025 Chronic Other connective tissue disease (1 source) Pain of toe of left foot; Translations: [Pain in left toe(s)] 05-20-2023 Episodic Other connective tissue disease (1 source) Pain of toe of right foot; Translations: [Pain in right toe(s)] 05-20-2023 Episodic Other screening for suspected conditions (not mental disorders or infectious disease) (1 source) Encounter for screening for malignant neoplasm of prostate; Translations: [Encounter for screening for malignant neoplasm of prostate] Onset: 01-23-2025 Episodic Residual codes; unclassified (2 sources) Unresponsive ; Translations: [Transient alteration of awareness] 01-13-2025 Episodic Residual codes; unclassified (1 source) Transient alteration of awareness; Translations: [Transient alteration of awareness] Onset: 01-17-2025 Episodic Past or Other Problems Problem Classification [...] unspecified forearm, initial encounter] Onset: 06-07-2024 Episodic Sprains and strains (4 sources) Injury of forearm; Translations: [Strain of unspecified muscles, fascia and tendons at forearm level, left arm, initial encounter] Onset: 06-07-2024 06-07-2024 Episodic Results Test Name Value Interpretation Reference Range Facility Brain without Contraston Brain without Contrast [facility] [address] [place] [id number] Brain without Contrast MR#: [id number] Acct: [id number] Name: WILBUR XIE Rep #: [id number] : 1965 M 59 From: Knu Santizo MD PCP: Dr. Roly Garcia MD Status: REG CLI Study: Brain without Contrast Date of Exam: 04/10/25 Exam# [id number] Ordering Dr: Melissa Crump YARN COMBER-C PROCEDURE: MRI BRAIN WITHOUT CONTRAST 04/10/2025 REASON FOR EXAM: SEIZURE HISTORY, REMOTE TRAUMA TECHNIQUE: Procedure Code: MRIBR Modality: MR Procedure: BRAIN WITHOUT CONTRAST Multiplanar and multisequential MRI of the brain was performed without contrast. COMPARISON: CT head 01/12/2025 FINDINGS: Ventricular and sulcal size and configuration are within normal limits. No regions of abnormal restricted diffusion, susceptibility, or other significant parenchymal signal alteration. No intracranial hemorrhage, extra-axial collection, or mass-effect. Midline structures are well-formed. No structural brain abnormality is evident. Preserved major intracranial vascular flow voids. Grossly unremarkable orbits. Peripheral mucosal thickening in the left sphenoid sinus. Remainder of the paranasal sinuses and bilateral mastoid air cells are well-aerated. MRI/Brain without Contrast IMPRESSION: Unremarkable exam. No acute intracranial abnormality or epileptogenic focus. Reading Location: [facility] CC: OLVIN Crump; Dr. Roly Garcia MD Information Technology Director: Signed Normal [facility] Magnesiumon 04-03-2025 Magnesium [Mass/Vol] 2.1 mg/dL Normal 1.5-2.2 [facility] Comment on above: Performed By: #### L 501.5200, L501.9520 #### [facility] [address] [place], [place], [address] Neurology Visit Reporton Neurology Visit Report [facility] [address], [address] [place] [id number] OFFICE VISIT Date of Service: 04/03/25 MR#: [id number] Acct: [id number] Name: WILBUR XIE Rep #: [id number] : 1965 Provider: OLVIN archuleta Age/Sex: 59/M Location: [facility] [place]. Status: Signed HPI HPI Chief Complaint: Establish care Details: History of present illness: Mr. Xie is a 59-year-old left-handed male who presents to neurology today 04/03/2025 to establish care for concerns of seizure-like activity. He is accompanied by sister Jackeline who provides majority of the information obtained today. It is reported that patient had seizures in childhood but they were well-controlled and he has been off anticonvulsants for an extended period of time. 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 Other pertinent past medical history includes developmental delay, hypertension, and hyperlipidemia. He lives in a half-way. The patient is unable to provide me much insight on his medical history due to his developmental delay. There are several siblings who also have a developmental delay. His sister who accompanies him today is unable to provide further detail on the nature of it. Patient is only able to answer with single word responses. She does not have much information regarding his seizure history or TBI, but she plans to obtain the medical records and provide us with them to review. On 01/12/2025, patient presented to the ED after sustaining a mechanical fall and fracturing his right wrist. He did not hit his head, he did not lose consciousness. Later that evening, patient again presented to the ED for an episode of unresponsiveness lasting 10 seconds. Workup was negative for acute findings at that time and a possible pain medication side effect was suspected. CT brain without contrast (01/12/2025) although with no acute findings, did demonstrate diffuse atrophy and left frontal lobe encephalomalacia, possibly remote trauma or ischemia per radiologist report. When discussing this with the sister today, these unresponsive episodes appear to be occurring more than just this particular occasion. Since she moved to the area, she has noticed multiple episodes of the patient staring off and not responding. Episodes are usually 10-30 seconds in duration and have been occurring over the past year or so. She notices these episodes at least once per month; however, they may be occurring more frequently just not to her knowledge. There is no reported postictal state as he will then carry on with his activities once he comes to, although there are reports of increased agitation and noncompliance with the half-way workers. He was started on Seroquel QHS for that reason. This has never been his typical behavior. Sister believes he has occasional episodes of urinary incontinence noted in the morning. I asked patient if he ever woke up with a bitten tongue and he said "yes" but is unable to quantify or give further detail. He also reports frequent headaches in his forehead area. ROS: General: No fatigue. No recent weight loss/gain. No recent illness. No fevers. Fall with wrist fracture in January 2025. Neuro: Frontal headaches. No dizziness. No numbness/tingling. No weakness. No tremors. Psych: Frequent insomnia. Occasional agitation. History of developmental delay. Cardio: Frequent palpitations. No chest pain or discomfort. No edema. History of hypertension, possibly cardiomegaly. Respiratory: Nonsmoker. No cough. No shortness of breath. No wheezing. Musculoskeletal: No use of assistive devices. No neck pain. No back pain. HEENT: No hearing loss. No diplopia. No dysphagia. Possible history of corneal repair? GI: No hematochezia. No NVD. No constipation. No abdominal pain or discomfort. : No hematuria. Occasional urinary incontinence. No dysuria. Skin: No ecchymosis. No wounds, rashes, or lesions. PHYSICAL EXAM: Constitutional: Pleasant left-handed male in no acute distress. BMI 25.3% Psych: Cooperative to his abilities. Poor judgment and insight. Developmentally delayed, flat affect. HEENT: Normocephalic. Atraumatic. Hearing grossly normal bilaterally. Excessive tear production, cloudy lens bilaterally. Respiratory: Normal effort. Symmetric chest movement. Clear to auscultation bilaterally. Cardio: Resting tachycardia, regular rhythm. No auscultated murmurs. No auscultated carotid bruit. BP 130/84, HR 105 bpm GI: Abdomen is soft, flat, nondistended. Nontender. Bowel sounds normal. Musculoskeletal: No muscle weakness. No difficulties with ROM. He has a compression glove on his right wrist. Extremities: Abse (more content not included)... Normal [facility] Thyroid Stim Hormone (TSH)on 04-03-2025 TSH 0.850 uIU/mL Normal 0.300-4.200 [facility] Comment on above: Performed By: #### L 501.5200, L501.9520 #### [facility] [address] [place], [address] PSA,Total - Annual Screenon 01-17-2025 PSA,TOT SCREEN 2.80 ng/mL Normal 0.02-4.00 [facility] Comment on above: Result Comment: This test was performed using the [employer] tPSA method. Measured values of a patient??sample can vary depending on the testing procedure used. PSA values determined on patient samples by different testing procedures cannot be used interchangeably. If there is a change in PSA assays while monitoring therapy, sequential testing should be performed to confirm baseline values. Performed By: #### L 501.9910 ####[facility] [address] [place], [address] Basic Metabolic Profile (BMP )on 01-13-2025 BUN/CRE 17.9 RATIO Normal 10-20 [facility] Comment on above: Performed By: #### L 100.0100, L500.2500 #### [facility] [address] [place], [address] Calcium [Mass/Vol] 9.6 mg/dL Normal 7.6-11.0 [facility] Comment on above: Performed By: #### L 100.0100, L500.2500 #### [facility] [address] [place], [address] Chloride [Moles/Vol] 103 mmol/L Normal 98-108 [facility] Comment on above: Performed By: #### L 100.0100, L500.2500 #### [facility] [address] [place], [address] CO2 [Moles/Vol] 23.0 mmol/L Normal 21.0-32.0 [facility] Comment on above: Performed By: #### L 100.0100, L500.2500 #### [facility] [address] [place], [address] Creatinine [Mass/Vol] 0.60 mg/dL Low 0.70-1.20 [facility] Comment on above: Performed By: #### L 100.0100, L500.2500 #### [facility] [address] [place], [address] ECRCL 129.56 ml/min Normal 50-250 [facility] Comment on above: Performed By: #### L 100.0100, L500.2500 #### [facility] [address] [place], [address] GAP 12 Normal 5-15 [facility] Comment on above: Performed By: #### L 100.0100, L500.2500 #### [facility] [address] [place], [address] GFR/1.73 sq M.predicted among non-blacks MDRD (S/P/Bld) [Vol rate/Area] 110 mL/min/{1.73_m2} Normal >60 [facility] Comment on above: Result Comment: mL/m in/1.73m2 CKD-EPI Creatinine Equation (2020) Performed By: #### L 100.0100, L500.2500 #### [facility] [address] [place], [address] Glucose [Mass/Vol] 141 mg/dL High 70-99 [facility] Comment on above: Performed By: #### L 100.0100, L500.2500 #### [facility] [address] [place], [address] Potassium [Moles/Vol] 3.9 mmol/L Normal 3.3-5.1 [facility] Comment on above: Performed By: #### L 100.0100, L500.2500 #### [facility] [address] [place], [address] Sodium [Moles/Vol] 138 mmol/L Normal 133-145 [facility] Comment on above: Performed By: #### L 100.0100, L500.2500 #### [facility] [address] [place], [address] Urea nitrogen [Mass/Vol] 11 mg/dL Normal 4-19 [facility] Comment on above: Performed By: #### L 100.0100, L500.2500 #### [facility] [address] [place], [address] Bilirubin Test strip Ql (U)O rdered By: Mary Alice Uriarte on 01-13-2025 Bilirubin Ql (U) Negative Negative [facility] CBC W/Diff, Automatedon 01-03 Absolute Lymph 1.69 X10 3/uL Normal 0.83-4.51 [facility] Comment on above: Performed By: #### L 100.0100, L500.2500 #### [facility] [address] [place], [address] Absolute Neut 4.9 X10 3/uL Normal 2.0-7.7 [facility] Comment on above: Performed By: #### L 100.0100, L500.2500 #### [facility] [address] [place], [address] Basophils/100 WBC (Bld) 0.1 % Normal 0-1 [facility] Comment on above: Performed By: #### L 100.0100, L500.2500 #### [facility] [address] [place], [address] Eosinophils/100 WBC (Bld) 0.8 % Normal 0-5 [facility] Comment on above: Performed By: #### L 100.0100, L500.2500 #### [facility] [address] [place], [address] Erythrocyte distribution width (RBC) [Ratio] 12.8 % Normal 11.6-14.6 [facility] Comment on above: Performed By: #### L 100.0100, L500.2500 #### [facility] [address] [place], [address] Hematocrit (Bld) [Volume fraction] 39.5 % Low 40-54 [facility] Comment on above: Performed By: #### L 100.0100, L500.2500 #### [facility] [address] [place], [address] Hemoglobin (Bld) [Mass/Vol] 13.3 g/dL Normal 13.0-16.5 [facility] Comment on above: Performed By: #### L 100.0100, L500.2500 #### [facility] [address] [place], [address] IG% 0.100 Normal 0.0-0.9 [facility] Comment on above: Result Comment: IG% - Immature Granulocytes (promyelocytes, myelocytes and metamyelocytes) > 1% indicates that a LEFT SHIFT is Present. Performed By: #### L 100.0100, L500.2500 #### [facility] [address] [place], [address] Lymphocytes/100 WBC (Bld) 22.7 % Normal 19-41 [facility] Comment on above: Performed By: #### L 100.0100, L500.2500 #### [facility] [address] [place], [address] MCH (RBC) [Entitic mass] 30.4 pg Normal 27.0-32.0 [facility] Comment on above: Performed By: #### L 100.0100, L500.2500 #### [facility] [address] [place], [address] MCHC (RBC) [Mass/Vol] 33.7 g/dL Normal 32-36 [facility] Comment on above: Performed By: #### L 100.0100, L500.2500 #### [facility] [address] [place], [address] MCV (RBC) [Entitic vol] 90.2 fL Normal 80-94 [facility] Comment on above: Performed By: #### L 100.0100, L500.2500 #### [facility] [address] [place], [address] Monocytes/100 WBC (Bld) 9.7 % Normal 0-10 [facility] Comment on above: Performed By: #### L 100.0100, L500.2500 #### [facility] [address] [place], [address] Neutrophils/100 WBC (Bld) 66.6 % Normal 47-70 [facility] Comment on above: Performed By: #### L 100.0100, L500.2500 #### [facility] [address] [place], [address] Nucleated RBC (Bld) [#/Vol] 0 10*3/uL Normal 0-5 [facility] Comment on above: Performed By: #### L 100.0100, L500.2500 #### [facility] [address] [place], [address] Platelet mean volume (Bld) [Entitic vol] 10.9 fL Normal 6.2-12.0 [facility] Comment on above: Performed By: #### L 100.0100, L500.2500 #### [facility] [address] [place], [address] Platelets (Bld) [#/Vol] 231 10*3/uL Normal 150-450 [facility] Comment on above: Performed By: #### L 100.0100, L500.2500 #### [facility] [address] [place], [address] RBC (Bld) [#/Vol] 4.38 10*6/uL Low 4.6-6.[address] [facility] Comment on above: Performed By: #### L 100.0100, L500.2500 #### [facility] [address] [place], [address] RDW SD 42.1 fl Normal 35.1-43.9 [facility] Comment on above: Performed By: #### L 100.0100, L500.2500 #### [facility] [address] [place], [address] WBC (Bld) [#/Vol] 7.4 10*3/uL Normal 4.4-11.0 [facility] Comment on above: Performed By: #### L 100.0100, L500.2500 #### [facility] [address] [place], [address] Hyaline casts LM.LPF (Urine sed) [#/Area]Ordered By: Mary Alice Uriarte on 01-13-2025 Hyaline casts (Urine sed) [#/Area] 5 /[LPF] 0-5 [facility] Ketones Test strip Ql (U)Ord ered By: Mary Alice Uriarte on 01-13-2025 Ketones Ql (U) Negative Negative [facility] Microscopic analysis of urin e for red blood cells (RBC)Ordered By: Mary Alice Uriarte on 01-13-2025 Microscopic analysis of urine for red blood cells (RBC) 0-5 SEEN /hpf 0-5 [facility] Mucus LM Ql (Urine sed)Order ed By: Mary Alice Uriarte on 01-13-2025 Mucus Ql (Urine sed) 2+ /hpf [facility] Comment on above: Previous reported re sult: 0 SEEN /hpfEdited by: OLYA on 01/13/25:0217 AMENDED REPORT 01/13/25216 MUCUS, URINE previously reported as: 0 SEEN /hpf Nitrite Test strip Ql (U)Ord ered By: Mary Alice Uriarte on 01-13-2025 Nitrite Ql (U) Negative Negative [facility] Protein Test strip Ql (U)Ord ered By: Mary Alice Uriarte on 01-13-2025 Protein Ql (U) 30 mg/dl High Negative [facility] Squamous epithelial cells de tection in urine sediment by light microscopyOrdered By: Mary Alice Uriarte on 01-13-2025 Epithelial cells.squamous LM Ql (Urine sed) 0-5 SEEN /hpf 0-5 [facility] Urinalysis, Completeon 01-13 Mucus Ql (Urine sed) 2+ /hpf Normal [facility] Comment on above: Order Comment: CLEAN CATCH Result Comment: AMENDED REPORT 01/13/257 MUCUS, URINE previously reported as: 0 SEEN /hpf Performed By: #### L 400.0001 ####[facility] [address] [place], [address] Urine clarityOrdered By: Allie Uriarte on 01-13-2025 Clarity (U) Clear Clear [facility] Urine color determinationOrd ered By: Mary Alice Uriarte on 01-13-2025 Color (U) Yellow Yellow [facility] Urine glucose detectionOrder ed By: Mary Alice Uriarte on 01-13-2025 Glucose Ql (U) Normal mg/dl Normal [facility] Urine leukocyte esterase det ection by dipstickOrdered By: Mary Alice Uriarte on 01-13-2025 Leukocyte esterase Test strip Ql (U) Negative Negative [facility] Urine pHOrdered By: Mary Alice aguilar on 01-13-2025 pH (U) 7.0 [pH] 5.0 - 8.0 [facility] Urine sediment bacteria coun t by microscopy (number/high power field)Ordered By: Mary Alice Uriarte on 01-13-2025 Bacteria LM.HPF (Urine sed) [#/Area] RARE /hpf None Seen [facility] Urine specific gravity measu rementOrdered By: Mary Alice Uriarte on 01-13-2025 Specific gravity (U) [Rel density] 1.010 1.002-1.030 [facility] Urine urobilinogen measureme ntOrdered By: Mary Alice Uriarte on 01-13-2025 Urobilinogen Ql (U) 1 mg/dl High Normal [facility] White blood cell countOrdere d By: Mary Alice Uriarte on 01-13-2025 White blood cell count 0-5 SEEN /hpf 0-5 [facility] Absolute lymphocyte countOrd ered By: Mary Alice Uriarte on 01-12-2025 Lymphocytes Auto (Unsp spec) [#/Vol] 1.69 10*3/uL 0.83-4.51 [facility] Absolute neutrophil countOrd ered By: Mary Alice Uriarte on 01-12-2025 Neutrophils (Bld) [#/Vol] 4.9 10*3/uL 2.0-7.7 [facility] Anion gap in Serum or Plasma Ordered By: Mary Alice Uriarte on 01-12-2025 Anion gap [Moles/Vol] 12 mmol/L 5-15 [facility] Automated lymphocyte count a s percentage of total leukocytesOrdered By: Mary Alice Uriarte on 01-12-2025 Lymphocytes/100 WBC Auto (Unsp spec) 22.7 % 19- [facility] BUN/creatinine ratioOrdered By: Mary Alice Uriarte on 01-12-2025 Urea nitrogen/Creatinine [Mass ratio] 17.9 mg/mg 10- [facility] Basophil percentageOrdered B y: Mary Alice Uriarte on 01-12-2025 Basophils/100 WBC (Bld) 0.1 % 0-1 [facility] Bedside Glucoseon 01-12-2025 FINGERSTICK GLU 138 mg/dL High 74-106 [facility] Comment on above: Result Comment: CHERRIE PACHECO OF PATIENT CARE PER NURSING PROTOCOL Performed By: #### L 501.080 #### [facility] Laboratory [address] [facility] [place], [address] Brain/Head without Contrasto n 01-12-2025 Brain/Head without Contrast [facility] Services [address] [place] [address] Brain/Head without Contrast MR#: [id number] Acct: [id number] Name: WILBUR XIE Rep #: [id number] : 1965 M 59 From: Karlos Dunn MD PCP: Dr. Roly Garcia MD Status: REG ER Study: Brain/Head without Contrast Date of Exam: 01/03 Exam# [id number] Ordering Dr: Mary Alice Uriarte MD PROCEDURE: BRAIN/HEAD WITHOUT CONTRAST 01/12/2025 REASON FOR EXAM: AMS TECHNIQUE: BRAIN/HEAD WITHOUT CONTRAST Coronal and Sagittal reconstruction series were provided. One or more dose reduction techniques were used (e.g., Automated exposure control, adjustment of the mA and/or kV according to patient size, use of iterative reconstruction technique. RADIATION DOSE SUMMARY: CTDlvol: 45 mGy DLP: 864 mGycm COMPARISON: No FINDINGS: Diffuse atrophy. Left frontal lobe encephalomalacia, possible remote trauma or ischemia. No acute abnormal brain densities. No intracranial hemorrhage. No hydrocephalus or midline shift. No acute scalp or skull pathology. Minimal sinus opacification. Unremarkable orbits. CT/Brain/Head without Contrast IMPRESSION: No acute intracranial findings. Reading Location: [place] [address] CC: Dr. Mary Alice Uriarte MD; Dr. Roly Garcia MD Information Technology Director: Signed Normal [facility] CO2 (BldV) [Moles/Vol]Ordere d By: Mary Alice Uriarte on 01-12-2025 CO2 [Moles/Vol] 27 mmol/L 23-33 [facility] Carbon dioxide, total [Moles /volume] in Central venous bloodOrdered By: Mary Alice Uriarte on 01-12-2025 CO2 [Moles/Vol] 23.0 mmol/L 21.0-32.0 [facility] Chloride assayOrdered By: James Uriarte on 01-12-2025 Chloride [Moles/Vol] 103 mmol/L 98-108 [facility] Emergency Department Summary on 01-12-2025 Emergency Department Summary [facility] Medical Records Department [address] [place] [id number] Emergency Department Summary 01/12/25 MR#: [id number] Acct: [id number] Name: WILBUR XIE Rep #: [id number] : 1965 59 From: Mary Alice Uriarte MD PCP: Dr. Roly Garcia MD Status:[facility] ER Location: ED HPI History of Present Illness Chief Complaint: Unresponsive Narrative Narrative: Patient is a 59-year-old male presenting to the emergency department for an episode of unresponsiveness per brother at bedside. Patient has a past medical history of developmental delay. He was here earlier after a fall and found to have a distal radial fracture and was placed in a splint. He received 1 dose of [place] here and then 1 at 7 PM at his half-way. His brother went to check on him this evening and while he was with him noticed that his eyes rolled back in his head and he was not responsive for about 10 seconds. States he then became responsive and was acting baseline per brother. Patient has no complaints at this time. Brother states this is never happened before. He has not complained of anything. No fevers. For the visit earlier this morning it was after a fall while walking into [employer]. He reportedly did not hit his head or have any loss of consciousness. [facility] Medical History Seizures Hyperlipidemia HTN (hypertension) Home Medications ???Medication ???Instructions ???Recorded ???Last Taken ???Type lisinopril 20 mg tablet 20 mg PO QDAY 04/30/24 01/12/25 Hi story rosuvastatin 5 mg tablet 5 mg PO QDAY 04/30/24 Unknown Hist ory acetaminophen 500 mg tablet 500 mg PO Q6H PRN pain 01/12/25 Un known History (Tylenol Extra Strength) hydrocodone-acetamin ophen 5-325mg 1 tab PO Q4H PRN PRN Pain 2 days 01/12/25 01/12/25 Rx 5mg-325mg #12 TABLETS quetiapine 25 mg tablet 25 mg PO QHS 01/12/25 Unknown Hist ory Allergy/AdvReac Type Severity Reaction Status Date / Time No Known Allergies Allergy Verified 01/12/25 22:27 Surgical History No pertinent past surgical history Social History current occupational status: disabled Smoking Status: Never smoker ROS ROS ED ROS Narrative See HPI EXAM Physical Exam Narrative Exam Narrative: Vital signs: Reviewed General: Alert. Slow to respond, baseline per brother and sister in law at bedside. No acute distress HEENT: Head is normocephalic and atraumatic, sinuses nontender, pupils equal round and reactive. Nares are patent. Oropharynx and throat exams normal. Neck: Supple without lymphadenopathy nontender Cardiovascular: Regular rate and rhythm, no murmurs. No rubs or gallops. Normal S1 and S2 Respiratory: Clear to auscultation bilaterally. No wheezes, rales, rhonchi Abdominal: Soft and nontender. Normal bowel sounds. No guarding or rebound. Nonsurgical abdomen Extremities: Splint and sling to RUE. Able to wiggle fingers, sensation intact and cap refill less than 2 seconds. Moves all extremities Skin: No rash or redness. Neurological: Cranial nerves II through XII are grossly intact. Normal strength and sensation. The rest of the physical exam is unremarkable Const Vital Signs: 01/12/25 22:23 01/12/25 22:30 01/13/25 00:22 Temperature 98.2 F Temperature Source Oral Pulse Rate 88 80 Respiratory Rate 16 16 Respiratory Pattern Normal Blood Pressure 136/79 H Blood Pressure Mean 98 Pulse Ox 95 97 Oxygen Delivery Method Room Air 01/13/25 02:00 01/13/25 02:25 Temperature 98.8 F 98.7 F Temperature Source Oral Pulse Rate 76 68 Respiratory Rate 16 16 Respiratory Pattern Blood Pressure 107/64 117/72 Blood Pressure Mean 78 87 Pulse Ox 96 98 Oxygen Delivery Method Room Air MDM MDM MDM Narrative Medical decision making narrative: Patient is a 59-year-old male presenting to the emergency department for an episode of unresponsiveness that was witnessed by brother. Patient was seen and examined. Vitals are stable. Patient resting bed comfortably no acute distress. Differential includes but is not limited to: Intracranial bleed, hypoglycemia, seizure, electrolyte imbalance, medication side effect Visit from this morning was reviewed. Given the unresponsive episode and fall earlier will obtain a CT brain and cervical spine. Will also obtain CBC, BMP, VBG, [id number] glucose. Plan of care glucose within normal limits at 141. CBC with no leukocytosis and normal hemoglobin. BMP with no significant abnormalities. Urinalysis with no evidence of UTI. VBG shows no significant acidosis or alkalosis. CT brain shows no acute intracranial findings and CT cervical spine shows no acute injury. The episod (more content not included)... Normal [facility] Emergency Department Summary [facility] Medical Records Department [address] [place] [address] Emergency Department Summary 01/12/25 MR#: [id number] Acct: [id number] Name: WILBUR XIE Rep #: [id number] : 1965 59 From: Mark Arguello DO PCP: Dr. Roly Garcia MD Status:DEP ER Location: ED HPI History of Present Illness Chief Complaint: Upper Extremity Injury Detail of Chief Complaint: Right wrist injury Informant: patient and family Narrative Narrative: Patient presents to the emergency department with complaint of an injury to his right wrist that occurred today. His brother dropped him off at [employer] and while going into [employer] he lost his balance and fell injuring his right wrist. He was able to get up right away. He had no loss of consciousness. Did not hit his head. Patient has history of developmental delay. He denies any other injuries. He is left-hand dominant. Later started complaining of right wrist pain [facility] Medical History (Updated 01/12/25 @ 14:[address] Mark Arguello DO) Hyperlipidemia HTN (hypertension) Home Medications ???Medication ???Instructions ???Recorded ???Last Taken ???Type lisinopril 20 mg tablet 20 mg PO QDAY 04/30/24 Unknown His tory rosuvastatin 5 mg tablet 5 mg PO QDAY 04/30/24 Unknown Hist ory naproxen 375 mg tablet 375 mg PO BID PRN pain #14 tabs Unknown Rx hydrocodone-acetamin ophen 5-325mg 1 tab PO Q4H PRN PRN Pain 2 days 01/12/25 Unknown Rx 5mg-325mg #12 TABLETS Allergy/AdvReac Type Severity Reaction Status Date / Time No Known Allergies Allergy Verified 01/12/25 13:20 Surgical History No pertinent past surgical history Social History (Updated 01/12/25 @ 13:33 by Kacey Cueva) current occupational status: disabled Smoking Status: Never smoker ROS ROS ED Review of Systems ROS Unobtainable: other Constitutional Constitutional ED: Reports lethargy; Denies chills, fever(s), sweats or weight loss Eyes Eyes: Denies blurry vision, change in vision or diplopia ENT ENT ED: Denies rhinorrhea or sore throat Cardiovascular Cardiovascular: Denies chest pain, orthopnea or racing heartbeat Respiratory/Chest Respiratory/Chest: Denies cough, dyspnea, dyspnea on exertion, orthopnea or sputum Gastrointestinal Gastrointestinal: Denies abdominal pain, diarrhea, nausea or vomiting Genitourinary Genitourinary ED: Denies dysuria, hematuria or urinary frequency Musculoskeletal Musculoskeletal: Reports other Details: Right wrist injury/pain ; Denies arthralgias, back pain, myalgias or neck pain Integumentary Denies abscess, Abrasions or rash Neurologic Neurologic: Denies headache(s) or weakness Psychiatric Psychiatric: Denies anxiety, depression or suicidal thoughts Endocrine Endocrinology: Denies polydipsia, polyphagia or polyuria Hematologic/Lymphati c Hematologic/Lymphati c: Denies easy bleeding, easy bruising or lymphadenopathy Allergic/Immunologic Allergic/Immunologic ED: Denies mouth swelling, tongue swelling or urticaria EXAM Physical Exam Const Vital Signs: 01/12/25 13:19 Temperature 98.3 F Temperature Source Temporal Pulse Rate 108 H Respiratory Rate 18 Blood Pressure 169/92 H Blood Pressure Mean 117 Pulse Ox 98 Oxygen Delivery Method Room Air Positive well nourished and well developed General Appearance ED: well developed and NAD HEENT Reports TM's clear and moist mucous membranes normocephalic and atraumatic; Negative for trauma or tenderness Tympanic Membrane ED: Yes TM's clear Eyes PERRL and EOMs intact bilaterally General Eye ED: Negative for pale conjunctiva or scleral icterus Neck no lymphadenopathy, supple and no JVD General: Negative for tenderness Chest Wall inspection of chest normal and palpation of chest normal Chest: Negative for tenderness Resp normal respiratory effort and clear to auscultation bilaterally Effort and Inspection: Negative for respiratory distress or pain with movement Auscultation: Negative for rhonchi, wheezes or diminished lung sounds Cardio regular rate, regular rhythm, S1 normal heart sound, S2 normal heart sound and no murmurs Peripheral Pulses: pulses 2+ throughout GI normal to inspection, nondistended, normoactive bowel sounds, soft to palpation, non-tender, non- distended and no masses Back/Spine no CVA tenderness and no thoracic nor lumbar tenderness Extremity Extremity Narrative: Right wrist-patient has diffuse soft tissue swelling with tenderness over the distal radius. No pain of the hand. There is no broken skin noted. No pain at the elbow. He is neurovascularly intact distally. General Extremety ED: Negative for edema General Extremity: Negative for edema Neuro oriented x3, CN's II-XII intact bilaterally, no sensory deficits (more content not included)... Normal [facility] Eosinophil percentageOrdered By: Mary Alice Uriarte on 01-12-2025 Eosinophils/100 WBC (Bld) 0.8 % 0-5 [facility] Erythrocyte distribution wid th ratioOrdered By: Mary Alice Uriarte on 01-12-2025 Erythrocyte distribution width (RBC) [Ratio] 12.8 % 11.6-14.6 [facility] Erythrocyte distribution wid th standard deviationOrdered By: Mary Alice Uriarte on 01-12-2025 Erythrocyte distribution width (RBC) [Ratio] 42.1 fl 35.1-43.9 [facility] Glomerular filtration rate ( GFR) estimation/1.73 sq m using serum, plasma, or whole bOrdered By: Mary Alice Uriarte on 01-12-2025 GFR/1.73 sq M.predicted among non-blacks MDRD (S/P/Bld) [Vol rate/Area] 110 mL/min/{1.73_m2} >60 [facility] Comment on above: mL/min/1.73m2 CKD-EP I Creatinine Equation (2020) [facility] deOrdered By: Mary Alice Uriarte on 01-12-2025 Glucose [Mass/Vol] 138 mg/dL High 74-106 [facility] Comment on above: MANAGEMENT OF PATIEN T CARE PER NURSING PROTOCOL Hematocrit Auto (Bld) [Volum e fraction]Ordered By: Mary Alice Uriarte on 01-12-2025 Hematocrit (Bld) [Volume fraction] 39.5 % Low 40-54 [facility] Hemoglobin measurementOrdere d By: Mary Alice Uriarte on 01-12-2025 Hemoglobin (Bld) [Mass/Vol] 13.3 g/dL 13.0-16.5 [facility] Immature granulocytes/100 WB C Auto (Bld)Ordered By: Mary Alice Uriarte on 01-12-2025 Immature granulocytes/100 WBC (Bld) 0.100 % 0.0-0.9 [facility] Comment on above: IG% - Immature Granu locytes (promyelocytes, myelocytes and metamyelocytes) > 1% indicates that a LEFT SHIFT is Present. MCV (mean corpuscular volume ) determinationOrdered By: Mary Alice Uriarte on 01-12-2025 MCV (RBC) [Entitic vol] 90.2 fL 80-94 [facility] Mean corpuscular hemoglobin (MCH) determinationOrdered By: Mary Alice Uriarte on 01-12-2025 MCH (RBC) [Entitic mass] 30.4 pg 27.0-32.0 [facility] Mean corpuscular hemoglobin concentration (MCHC) determinationOrdered By: Mary Alice Uriarte on 01-12-2025 MCHC (RBC) [Mass/Vol] 33.7 g/dL 32-36 [facility] Mean platelet volume determi nationOrdered By: Mary Alice Uriarte on 01-12-2025 Platelet mean volume (Bld) [Entitic vol] 10.9 fL 6.2-12.0 [facility] Monocyte percentageOrdered B y: Mary Alice Uriarte on 01-12-2025 Monocytes/100 WBC (Bld) 9.7 % 0-10 [facility] Neutrophil percentageOrdered By: Mary Alice Uriarte on 01-12-2025 Neutrophils/100 WBC (Bld) 66.6 % 47-70 [facility] No Panel InformationOrdered By: Mary Alice Uriarte on 01-12-2025 Blood Gas Sample Site Not entered [facility] Blood Gas Specimen Type ABEL [facility] Oxygen Delivery Device Room Air [facility] Nucleated red blood cell per centageOrdered By: Mary Alice Uriarte on 01-12-2025 Nucleated RBC/100 WBC (Bld) [Ratio] 0 % 0-5 [facility] Platelet countOrdered By: James Uriarte on 01-12-2025 Platelets (Bld) [#/Vol] 231 10*3/uL 150-450 [facility] Potassium measurement (mass/ volume)Ordered By: Mary Alice Uriarte on 01-12-2025 Potassium (Unsp spec) [Mass/Vol] 3.9 mmol/L 3.3-5.1 [facility] RBC Auto (Bld) [#/Vol]Ordere d By: Mary Alice Uriarte on 01-12-2025 RBC (Bld) [#/Vol] 4.38 10*6/uL Low 4.6-6.[address] [facility] Serum creatinine measurement (mass/volume)Ordered By: Mary Alice Uriarte on 01-12-2025 Creatinine [Mass/Vol] 0.60 mg/dL Low 0.70-1.20 [facility] Serum glucose measurement (m ass/volume)Ordered By: Mary Alice Uriarte on 01-12-2025 Glucose [Mass/Vol] 141 mg/dL High 70-99 [facility] Serum or plasma calcium trip urement (mass/volume)Ordered By: Mary Alice Uriarte on 01-12-2025 Calcium [Mass/Vol] 9.6 mg/dL 7.6-11.0 [facility] Serum or plasma urea nitroge n measurement (mass/volume)Ordered By: Mary Alice Uriarte on 01-12-2025 Urea nitrogen [Mass/Vol] 11 mg/dL 4-19 [facility] Sodium levelOrdered By: Jovanny Uriarte on 01-12-2025 Sodium [Moles/Vol] 138 mmol/L 133-145 [facility] Spine Cervical without Contr ason 01-12-2025 Spine Cervical without Contras [facility] [address] [place] [address] Spine Cervical without Contras MR#: [id number] Acct: [id number] Name: WILBUR XIE Rep #: [id number] : 1965 M 59 From: Karlos Dunn MD PCP: Dr. Roly Garcia MD Status: REG ER Study: Spine Cervical without Contras Date of Exam: 0 01/12/25 Exam# [id number] Ordering Dr: Mary Alice Uriarte MD PROCEDURE: SPINE CERVICAL WITHOUT CONTRAS 01/12/2025 REASON FOR EXAM: FALL TECHNIQUE: SPINE CERVICAL WITHOUT CONTRAS Coronal and Sagittal reconstruction series were provided. One or more dose reduction techniques were used (e.g., Automated exposure control, adjustment of the mA and/or kV according to patient size, use of iterative reconstruction technique. RADIATION DOSE SUMMARY: CTDlvol: 23 mGy DLP: 497 mGycm COMPARISON: No FINDINGS: Cervical spine scoliosis and degeneration. No acute fracture or dislocation. No soft tissue injury. No apical pneumothorax. CT/Spine Cervical without Contras IMPRESSION: No acute injury Reading Location: [place] [address] CC: Dr. Mary Alice Uriarte MD; Dr. Roly Garcia MD Information Technology Director: Signed Normal [facility] Venous Blood Gason 5 Blood Gas Type ABEL [facility] Comment on above: Performed By: #### L 9000.0810 #### [facility] Laboratory [address] [place], [address] CO2 [Moles/Vol] 27 mmol/L Normal 23-33 [facility] Comment on above: Performed By: #### L 9000.0810 #### [facility] Laboratory [address] [place], [address] HCO3 (Bld) [Moles/Vol] 26 mmol/L Normal 22-26 [facility] Comment on above: Performed By: #### L 9000.0810 #### [facility] Laboratory [address] [place], [address] O2 Delivery Dev Room Air Normal [facility] Comment on above: Performed By: #### L 9000.0810 #### [facility] Laboratory [address] [place], [address] SITE Not entered Normal [facility] Comment on above: Performed By: #### L 9000.0810 #### [facility] Laboratory [address] [place], [address] VBG BE 1 mmol/L Normal -1.0-3.5 [facility] Comment on above: Performed By: #### L 9000.0810 #### [facility] Laboratory [address] [place], [address] VBG pCO2 39.6 mmHg Low 41-51 [facility] Comment on above: Performed By: #### L 9000.0810 #### [facility] Laboratory [address] [place], [address] VBG pH 7.42 Normal 7.32-7.42 [facility] Comment on above: Performed By: #### L 9000.0810 #### [facility] Laboratory [address] [place], [address] VBG PO2 43 mmHg High 25-40 [facility] Comment on above: Performed By: #### L 9000.0810 #### [facility] Laboratory [address] [place], [address] VBG SO2 80 High 50-70 [facility] Comment on above: Performed By: #### L 9000.0810 #### [facility] Laboratory [address] [place], [address] Venous blood base excess nigel surementOrdered By: Mary Alice Uriarte on 01-12-2025 Base excess Calc (BldV) [Moles/Vol] 1 mmol/L -1.0-3.5 [facility] Venous blood bicarbonate nigel surementOrdered By: Mary Alice Kalani on 01-12-2025 HCO3 (Bld) [Moles/Vol] 26 mmol/L 22-26 [facility] Venous blood oxygen saturati on measurementOrdered By: Mary Alice Uriarte on 01-12-2025 Oxygen saturation in Blood 80 % High 50-70 [facility] Venous blood pH measurementO rdered By: Mary Alice Uriarte on 01-12-2025 pH (BldV) 7.42 [pH] 7.32-7.42 [facility] Venous blood partial pressur e of carbon dioxide measurementOrdered By: Mary Alice Uriarte on 01-12-2025 CO2 (BldV) [Partial pressure] 39.6 mm[Hg] Low 41-51 [facility] Venous blood partial pressur e of oxygen measurementOrdered By: Mary Alice Uriarte on 01-12-2025 Oxygen (BldV) [Partial pressure] 43 mm[Hg] High 25-40 [facility] White blood cell (WBC) count Ordered By: Mary Alice Uriarte on 01-12-2025 WBC (Bld) [#/Vol] 7.4 10*3/uL 4.4-11.0 [facility] Wrist min 3 Viewson 01-13-20 25 Wrist min 3 Views [facility] [address] [place], [place] [address] Wrist min 3 Views MR#: [id number] Acct: [id number] Name: WILBUR XIE Rep #: [id number] : 1965 M 59 From: Vladimir Cuadra MD PCP: Dr. Roly Garcia MD Status: REG ER Study: Wrist min 3 Views Date of Exam: 01/12/25 Exam# [id number] Ordering Dr: Mark Arguello DO PROCEDURE: WRIST MIN 3 VIEWS 01/12/2025 REASON FOR EXAM: INJURY TECHNIQUE: WRIST MIN 3 VIEWS Laterality: COMPARISON: None. FINDINGS: Bones: Acute complex fracture of the distal radius extending to the radial carpal joint. Joints: No dislocation. Soft tissues: Soft tissue swelling. RAD/Wrist min 3 Views IMPRESSION: Acute complex fracture of the distal radius extending to the radial carpal joint. Reading Location: [facility] CC: Dr. Roly Garcia MD; Dr. Mark Arguello DO Information Technology Director: Signed Normal [facility] Anion gap in Serum or Plasma Ordered By: Roly Garcia on 10-01-2024 Anion gap [Moles/Vol] 12 mmol/L 5-15 [facility] BUN/creatinine ratioOrdered By: Roly Garcia on 10-01-2024 Urea nitrogen/Creatinine [Mass ratio] 11.8 mg/mg 10-20 [facility] Bilirubin, totalOrdered By: Roly Garcia on 10-01-2024 Bilirubin [Mass/Vol] 0.93 mg/dL 0.00-1.30 [facility] Calculated very low density lipoprotein (VLDL) cholesterol measurementOrdered By: Roly Garcia on 10-01-2024 Calculated very low density lipoprotein (VLDL) cholesterol measurement 15 mg/dL 5-40 [facility] Carbon dioxide, total [Moles /volume] in Central venous bloodOrdered By: Roly Garcia on 10-01-2024 CO2 [Moles/Vol] 23.7 mmol/L 21.0-32.0 [facility] Chloride assayOrdered By: Pepe Garcia on 10-01-2024 Chloride [Moles/Vol] 103 mmol/L 98-108 [facility] [facility] ilon 10-01-2024 Albumin [Mass/Vol] 4.5 g/dL Normal 3.4-4.8 [facility] Comment on above: Performed By: #### L 500.8364, L500.4100 #### [facility] [address] [place], [address] Albumin/Globulin [Mass ratio] 1.3 {ratio} Normal 0.9-2.4 [facility] Comment on above: Performed By: #### L 500.4050, L500.4100 #### [facility] [address] [place], [address] ALK PHOS 88 U/L Normal 40-129 [facility] Comment on above: Performed By: #### L 500.4050, L500.4100 #### [facility] [address] [place], [address] ALT [Catalytic activity/Vol] 12 U/L Normal <=46 [facility] Comment on above: Performed By: #### L 500.4050, L500.4100 #### [facility] [address] [place], [address] AST [Catalytic activity/Vol] 18 U/L Normal <=37 [facility] Comment on above: Performed By: #### L 500.4050, L500.4100 #### [facility] [address] [place], [address] Bilirubin [Mass/Vol] 0.93 mg/dL Normal 0.00-1.30 [facility] Comment on above: Performed By: #### L 500.4050, L500.4100 #### [facility] [address] [place], [address] BUN/CRE 11.8 RATIO Normal 10-20 [facility] Comment on above: Performed By: #### L 500.4050, L500.4100 #### [facility] [address] [place], [address] Calcium [Mass/Vol] 9.9 mg/dL Normal 7.6-11.0 [facility] Comment on above: Performed By: #### L 500.4050, L500.4100 #### [facility] [address] [place], [address] Chloride [Moles/Vol] 103 mmol/L Normal 98-108 [facility] Comment on above: Performed By: #### L 500.4050, L500.4100 #### [facility] [address] [place], [address] CO2 [Moles/Vol] 23.7 mmol/L Normal 21.0-32.0 [facility] Comment on above: Performed By: #### L 500.4050, L500.4100 #### [facility] [address] [place], [address] Creatinine [Mass/Vol] 0.61 mg/dL Low 0.70-1.20 [facility] Comment on above: Performed By: #### L 500.4050, L500.4100 #### [facility] [address] [place], [address] GAP 12 Normal 5-15 [facility] Comment on above: Performed By: #### L 500.4050, L500.4100 #### [facility] [address] [place], [address] GFR/1.73 sq M.predicted among non-blacks MDRD (S/P/Bld) [Vol rate/Area] 110 mL/min/{1.73_m2} Normal >60 [facility] Comment on above: Result Comment: mL/m in/1.73m2 CKD-EPI Creatinine Equation (2020) Performed By: #### L 500.4050, L500.4100 #### [facility] [address] [place], [address] Globulin (S) [Mass/Vol] 3.4 g/dL Normal 2.2-4.2 [facility] Comment on above: Performed By: #### L 500.4050, L500.4100 #### [facility] [address] [place], [address] Glucose [Mass/Vol] 96 mg/dL Normal 70-99 [facility] Comment on above: Performed By: #### L 500.4050, L500.4100 #### [facility] [address] [place], [address] Potassium [Moles/Vol] 4.3 mmol/L Normal 3.3-5.1 [facility] Comment on above: Performed By: #### L 500.4050, L500.4100 #### [facility] [address] [place], [address] Sodium [Moles/Vol] 139 mmol/L Normal 133-145 [facility] Comment on above: Performed By: #### L 500.4050, L500.4100 #### [facility] [address] [place], [address] T PROT 7.9 g/dL Normal 5.9-8.4 [facility] Comment on above: Performed By: #### L 500.4050, L500.4100 #### [facility] [address] [place], [address] Urea nitrogen [Mass/Vol] 7 mg/dL Normal 4-19 [facility] Comment on above: Performed By: #### L 500.4050, L500.4100 #### [facility] [address] [place], [address] Glomerular filtration rate ( GFR) estimation/1.73 sq m using serum, plasma, or whole bOrdered By: Roly Garcia on 10-01-2024 GFR/1.73 sq M.predicted among non-blacks MDRD (S/P/Bld) [Vol rate/Area] 110 mL/min/{1.73_m2} >60 [facility] Comment on above: mL/min/1.73m2 CKD-EP I Creatinine Equation (2020) LDL calc ser/plasOrdered By: Roly Garcia on 10-01-2024 Cholesterol in LDL [Mass/Vol] 101 mg/dL [facility] Comment on above: Udbxzsmgmi=179-065 m g/dL & Higher Rjeh=449 mg/dL or greater Laboratory - Chemistry and C hemistry - challengeOrdered By: Roly Garcia on 10-01-2024 AST [Catalytic activity/Vol] 18 U/L <38 [facility] Lipid Profileon 10-01-2024 CHOL:HDL 2.97 Normal [facility] Comment on above: Performed By: #### L 500.4050, L500.4100 #### [facility] [address] [place], [address] Cholesterol [Mass/Vol] 175 mg/dL Normal <=200 [facility] Comment on above: Result Comment: Chol esterol level, Desirable <200 mg/dL Borderline high cholesterol 200-239 mg/dL High cholesterol >=240 mg/dL Recommendations of the NCEP Adult Treatment Panel for the following risk-cutoff thresholds for the [place] population. Performed By: #### L 500.4050, L500.4100 #### [facility] [address] [place], [address] Cholesterol in HDL [Mass/Vol] 59 mg/dL Normal [facility] Comment on above: Result Comment: Wendi onal Cholesterol Education Program (NCEP) guidelines: <40 mg/dL: Low HDL-cholesterol (major risk factor for CHD) >= 60 mg/dL: High HDL-cholesterol (negative risk factor for CHD) HDL-cholesterol is affected by a number of factors, e.g. smoking, exercise, hormones, sex and age. Performed By: #### L 500.4050, L500.4100 #### [facility] [address] [place], [address] Cholesterol in LDL [Mass/Vol] 101 mg/dL Normal [facility] Comment on above: Result Comment: Bord nzhagn=497-811 mg/dL Higher Mxrn=416 mg/dL or greater Performed By: #### L 500.4050, L500.4100 #### [facility] [address] [place], [address] Cholesterol in VLDL [Mass/Vol] 15 mg/dL Normal 5-40 [facility] Comment on above: Performed By: #### L 500.4050, L500.4100 #### [facility] [address] [place], [address] Triglyceride [Mass/Vol] 73 mg/dL Normal [facility] Comment on above: Result Comment: The drugs N-Acetylcysteine and Metamizole may falsely depress this assay. Normal range: <150 mg/dL Borderline High: 150-199 mg/dL High: 200-499 mg/dL Very High: >500 mg/dL Performed By: #### L 500.4050, L500.4100 #### [facility] [address] [place], [address] Potassium measurement (mass/ volume)Ordered By: Roly Garcia on 10-01-2024 Potassium (Unsp spec) [Mass/Vol] 4.3 mmol/L 3.3-5.1 [facility] Screening total cholesterol/ high density lipoprotein (HDL) cholesterol ratioOrdered By: Roly Garcia on 10-01-2024 Cholesterol.total/Choles terol in HDL [Mass ratio] 2.97 {ratio} [facility] Serum creatinine measurement (mass/volume)Ordered By: Roly Garcia on 10-01-2024 Creatinine [Mass/Vol] 0.61 mg/dL Low 0.70-1.20 [facility] Serum globulin measurementOr dered By: Roly Garcia on 10-01-2024 Globulin (S) [Mass/Vol] 3.4 g/dL 2.2-4.2 [facility] Serum glucose measurement (m ass/volume)Ordered By: Roly Garcia on 10-01-2024 Glucose [Mass/Vol] 96 mg/dL 70-99 [facility] Serum or plasma alanine pastor otransferase (ALT) measurementOrdered By: Roly Garcia on 10-01-2024 ALT [Catalytic activity/Vol] 12 U/L <47 [facility] Serum or plasma albumin trip urement (mass/volume)Ordered By: Roly Garcia on 10-01-2024 Albumin [Mass/Vol] 4.5 g/dL 3.4-4.8 [facility] Serum or plasma albumin/glob ulin mass ratioOrdered By: Roly Garcia on 10-01-2024 Albumin/Globulin [Mass ratio] 1.3 {ratio} 0.9-2.4 [facility] Serum or plasma alkaline patel sphatase measurementOrdered By: Roly Garcia on 10-01-2024 ALP [Catalytic activity/Vol] 88 U/L 40-129 [facility] Serum or plasma calcium trip urement (mass/volume)Ordered By: Roly Garcia on 10-01-2024 Calcium [Mass/Vol] 9.9 mg/dL 7.6-11.0 [facility] Serum or plasma cholesterol in HDL measurement (mass/volume)Ordered By: Roly Garcia on 10-01-2024 Cholesterol in HDL [Mass/Vol] 59 mg/dL >40 [facility] Comment on above: National Cholesterol Education Program (NCEP) guidelines:<40 mg/dL: Low HDL-cholesterol (major risk factor for CHD)>= 60 mg/dL: High HDL-cholesterol (negative risk factor for CHD)HDL-cholesterol is affected by a number of factors, e.g. smoking, exercise, hormones, sex and age. Serum or plasma cholesterol measurement (mass/volume)Ordered By: Roly Garcia on 10-01-2024 Cholesterol [Mass/Vol] 175 mg/dL <201 [facility] Comment on above: Cholesterol level, D esirable <200 mg/dLBorderline high cholesterol 200-239 mg/dLHigh cholesterol >=240 mg/dLRecommendations of the NCEP Adult Treatment Panel for the following risk-cutoff thresholds for the [place] population. Serum or plasma urea nitroge n measurement (mass/volume)Ordered By: Roly Garcia on 10-01-2024 Urea nitrogen [Mass/Vol] 7 mg/dL 4-19 [facility] Sodium levelOrdered By: Roly Garcia on 10-01-2024 Sodium [Moles/Vol] 139 mmol/L 133-145 [facility] Total proteinOrdered By: Raisa Garcia on 10-01-2024 Protein [Mass/Vol] 7.9 g/dL 5.9-8.4 [facility] Triglycerides measurementOrd ered By: Roly Garcia on 10-01-2024 Triglyceride [Mass/Vol] 73 mg/dL <199 [facility] Comment on above: The drugs N-Acetylcy steine and Metamizole may falsely depress this assay. Normal range: <150 mg/dLBorderline High: 150-199 mg/dLHigh: 200-499 mg/dLVery High: >500 mg/dL Forearm 2 Viewson 06-07-2024 Forearm 2 Views [facility] [address] [place] [address] Forearm 2 Views MR#: [id number] Acct: [id number] Name: WILBUR XIE Rep #: [id number] : 1965 M 58 From: Jose Sumner DO PCP: Dr. Roly Garcia MD Status: REG CLI Study: Forearm 2 Views Date of Exam: 06/07/24 Exam# [id number] Ordering Dr: Jesse Scott [id number] INDICATION: arm injury EXAMINATION/TECHNIQU E: X-RAY - [...] 16:30 EST Reading Location ID and State: [place] / [place] Tel [phone], Service support , CC: PEPE Weber; Dr. Roly Garcia MD Information Technology Director: Signed Normal [facility] Urgent Care Visit Reporton 0 06-07-2024 Urgent Care Visit Report [facility] [address], [address] [place] [address] OFFICE VISIT Date of Service: 06/07/24 MR#: [id number] Acct: [id number] Name: WILBUR XIE Rep #: [id number] : 1965 Provider: PEPE Weber Age/Sex: 58/M Location: [facility] Status: Signed Intake Vital Signs 04/30/24 [...] FOREARM PAIN Chief Complaint: left forearm pain Tank Riveter Required: No Is patient in pain?: Yes [...] additional pain when questioned. pt is from [place] and has developmental disabilities [facility] Medical History (Updated 06/07/24 @ 16:21 by PEPE [place]) Hyperlipidemia HTN (hypertension) Surgical History (Updated 04/30/24 @ 16:02 by Palak Wyman) No pertinent past surgical history Social History Smoking Status: Never smoker HPI HPI Chief Complaint: left forearm pain Details: WILBUR XIE, is a 58 M who presents to the office today for complaint of left forearm pain. Patient is brought in by his caregiver from a half-way. Caregiver states the patient was involved in [...] Wagner Signature: Date (if applicable) CC: Normal [facility] Urgent Care Visit Reporton 1 06-30-2023 Urgent Care Visit Report [facility] [address] [place] [address] OFFICE VISIT Date of Service: 04/30/24 MR#: [id number] Acct: [id number] Name: WILBUR XIE Rep #: [id number] : 1965 Provider: PEPE Rice Age/Sex: 58/M Location: [facility] Status: Signed Intake Vital Signs 04/30/24 15:59 Height 5 ft 6 in Weight: 149 lb 2 oz BMI 24.0 BP 154/78 H Blood Pressure Location Lt brachial Position Sitting Respiration 15 Pulse 92 Pulse Source NIBP Temp 99.0 F Temp Source Oral Pulse Oximetry (%) 99 Oxygen Delivery Method room air Intake Visit Reasons: ST/SNEEZING Chief Complaint: ST, sneezing Tank Riveter Required: No Is patient in pain?: No [...] pt received flu vaccine yesterday at 1500. director of casework declines viral testing unless necessary. requesting order for prn tylenol for ST [facility] Medical History (Updated 04/30/24 @ 16:02 by Palak Wyman) Hyperlipidemia HTN (hypertension) Surgical History (Updated 04/30/24 @ 16:02 by Palak Wyman) No pertinent past surgical history Social History Smoking Status: Never smoker HPI HPI Chief Complaint: ST, sneezing Details: WILBUR XIE, is a 58 M who presents to [...] average body habitus Orientation: alert, awake/ nonverbal [facility] Head: normal to inspection Ears: hearing [...] Date _ (more content not included)... Normal [facility] Basophil percentageOrdered B y: Roly Garcia on 09-27-2023 Chloride [Moles/Vol] 109 mmol/L 98-107 [facility] Cholesterol [Mass/Vol] 167 mg/dL <200 [facility] Comment on above: <200 mg/dL Desirable 200-240 mg/dL Borderline >240 mg/dL High Risk Glucose [Mass/Vol] 107 mg/dL 74-106 [facility] Comment on above: Fasting Glucose resu lt from 100 to 125 mg/dL suggests IMPAIRED HOMEOSTASIS per A.D.A. criteria. Potassium [Moles/Vol] 3.9 mmol/L 3.5-5.1 [facility] Sodium [Moles/Vol] 139 mmol/L 136-145 [facility] Triglyceride [Mass/Vol] 44 mg/dL <199 [facility] Comment on above: The drugs N-Acetylcy steine and Metamizole may falsely depress this assay.Serum Triglycerides Reference Interval Normal <150 mg/dL Borderline high 150 - 199 mg/dL High 200 - 499 mg/dL Very High > or = 500 mg/dL Laboratory - Chemistry and C hemistry - challengeOrdered By: Roly Garcia on 09-27-2023 Cholesterol in HDL [Mass/Vol] 88 mg/dL >40 [facility] Comment on above: The drugs N-Acetylcy steine and Metamizole may falsely depress this assay. Reference Range HDL <40 mg/dL Low HDL Cholesterol HDL >or= 60 mg/dL High HDL Cholesterol Cholesterol in LDL [Mass/Vol] 70 mg/dL 0-130 [facility] CO2 [Moles/Vol] 27.0 mmol/L 21.0-32.0 [facility] Urea nitrogen/Creatinine [Mass ratio] 7.9 mg/mg 10-20 [facility] No Panel InformationOrdered By: Roly Garcia on 09-27-2023 Estimated GFR (MDRD) Amer 166 mL/min >60 [facility] Comment on above: GFR Calc Estimated GFR (MDRD) Non-Af Amer 137 mL/min >60 [facility] Comment on above: Non- GFR Calc VLDL Cholesterol 9 mg/dL 5-40 [facility] Serum or plasma calcium trip urement (mass/volume)Ordered By: Roly Garcia on 09-27-2023 Calcium [Mass/Vol] 9.2 mg/dL 8.5-10.1 [facility] Serum or plasma creatinine m easurement (mass/volume)Ordered By: Roly Garcia on 09-27-2023 Creatinine [Mass/Vol] 0.63 mg/dL 0.70-1.30 [facility] Comment on above: The validity of the calculated GFR & GFRAA in patients over 70 years has not been determined. Clinical correlation is essential. Serum or plasma urea nitroge n measurement (mass/volume)Ordered By: Roly Garcia on 09-27-2023 Urea nitrogen [Mass/Vol] 5 mg/dL 7-18 [facility] Thin prep Papanicolaou smear with manual screeningOrdered By: Roly Garcia on 09-27-2023 Thin prep Papanicolaou smear with manual screening 3 5-15 [facility] CNPNon 05-19-2023 CNPN Telephone (PODIWS) WILBUR XIE ([id number]) 1965 M Date Time Provider Department 05/19/23 [...] Encounter Status:Closed by NIELS UMANA on 05/19/23 [facility] CNOVon 05-18-2023 CNOV Office Visit (PODIWS) WILBUR XIE ([id number]) 1965 M Date Time Provider Department 05/18/23 3:00 PM SASKIA VALENCIA During your visit today, we recorded the following information about you: Yancy Flores RN 05/20/2023 6:44 AM Signed Patient presents with: Left Foot - New, nail care Right Foot - New, nail care Patient presents for nail care. Patient new to [facility]. Unsure of medications that he takes, [...] last 1 encounters. No results found for: "HBA1C" PCP: No primary care provider on file. [...] Valencia DPM Podiatry [address] [facility] [address] Dept: [phone] Dept Allergies As of Date: 05/18/2023 (No Known Allergies) Date Reviewed: 05/18/2023 Reviewed by: Yancy Flores RN - Fully Assessed Reason for Visit: New [473249] nail care [Other] New [430905] nail care [Other] Primary Visit Diagnosis:Onychomyco sis [B35.1] Other Visit Diagnoses:Pain in toe of left foot [M79.675] Pain in toe of right foot [M79.674] Meds Comments as of 05/18/2023: 05/18/23-Patient unsure of medication. Mother states Coreg and Lisinopril but unsure of dose. Problem List As Of Date: 05/18/2023 (None) Encounter Status:Closed by SASKIA VALENCIA DPM on 05/20/23 Normal [facility] Basophil percentageon 2021 Chloride [Moles/Vol] 106 mmol/L 98-107 [facility] Work Phone: Cholesterol [Mass/Vol] 204 mg/dL <200 [facility] Work Phone: Comment on above: <200 mg/dL Desirable 200-240 mg/dL Borderline >240 mg/dL High Risk Glucose [Mass/Vol] 105 mg/dL 74-106 [facility] Work Phone: Comment on above: Fasting Glucose resu lt from 100 to 125 mg/dL suggests IMPAIRED HOMEOSTASIS per A.D.A. criteria. Potassium [Moles/Vol] 3.6 mmol/L 3.5-5.1 [facility] Work Phone: Sodium [Moles/Vol] 140 mmol/L 136-145 [facility] Work Phone: Triglyceride [Mass/Vol] 70 mg/dL [facility] Work Phone: Comment on above: The drugs N-Acetylcy steine and Metamizole may falsely depress this assay.Serum Triglycerides Reference Interval Normal <150 mg/dL Borderline high 150 - 199 mg/dL High 200 - 499 mg/dL Very High > or = 500 mg/dL Laboratory - Chemistry and C hemistry - challengeon 08-30-2021 CO2 [Moles/Vol] 27.0 mmol/L 21.0-32.0 [facility] Work Phone: Urea nitrogen/Creatinine [Mass ratio] 13.1 mg/mg 10-20 [facility] Work Phone: No Panel Informationon 08-30 Estimated GFR (MDRD) Amer 153 mL/min >60 [facility] Work Phone: Comment on above: GFR Calc Estimated GFR (MDRD) Non-Af Amer 126 mL/min >60 [facility] Work Phone: Comment on above: Non- GFR Calc Serum or plasma calcium rtip urement (mass/volume)on 08-30-2021 Calcium [Mass/Vol] 9.6 mg/dL 8.5-10.1 [facility] Work Phone: Serum or plasma cholesterol in HDL measurement (mass/volume)on 08-30-2021 Cholesterol in HDL [Mass/Vol] 57 mg/dL [facility] Work Phone: Comment on above: The drugs N-Acetylcy steine and Metamizole may falsely depress this assay. Reference Range HDL <40 mg/dL Low HDL Cholesterol HDL >or= 60 mg/dL High HDL Cholesterol Serum or plasma cholesterol in VLDL measurement (mass/volume)on 08-30-2021 Cholesterol in VLDL [Mass/Vol] 14 mg/dL 5-40 [facility] Work Phone: Serum or plasma creatinine m easurement (mass/volume)on 08-30-2021 Creatinine [Mass/Vol] 0.69 mg/dL 0.70-1.30 [facility] Work Phone: Comment on above: The validity of the calculated GFR & GFRAA in patients over 70 years has not been determined. Clinical correlation is essential. Serum or plasma low density lipoprotein (LDL) cholesterol measurement (mass/volume)on 08-30-2021 Cholesterol in LDL [Mass/Vol] 133 mg/dL 0-130 [facility] Work Phone: Serum or plasma urea nitroge n measurement (mass/volume)on 08-30-2021 Urea nitrogen [Mass/Vol] 9 mg/dL 7-18 [facility] Work Phone: Thin prep Papanicolaou smear with manual screeningon 08-30-2021 Thin prep Papanicolaou smear with manual screening 7 5-15 [facility] Work Phone: Vital Signs Date Time Vital Sign Value Performing Clinician Faci lity 01-13-2025 02:25-0400 Body temperature 98.7 [degF] Dr. Roly Garcia MD Work Phone: [facility] 01-13-2025 02:25-0400 Diastolic blood pressure 72 mm[Hg] Dr. Roly Garcia MD Work Phone: [facility] 01-13-2025 02:25-0400 Heart rate 68 /min Dr. Roly Garcia MD Work Phone: [facility] 01-13-2025 02:25-0400 Respiratory rate 16 /min Dr. Roly Garcia MD Work Phone: [facility] 01-13-2025 02:25-0400 SaO2% (BldA) [Mass fraction] 98 % Dr. Roly Garcia MD Work Phone: [facility] 01-13-2025 02:25-0400 Systolic blood pressure 117 mm[Hg] Dr. Roly Garcia MD Work Phone: [facility] 01-12-2025 22:23-0400 Body height 167.[address] Roly Garcia MD Work Phone: [facility] 01-12-2025 22:23-0400 Body mass index (BMI) [Ratio] 28.1 kg/m2 Dr. Roly Garcia MD Work Phone: [facility] 01-12-2025 22:23-0400 Body weight 79.[address] Roly Garcia MD Work Phone: [facility] 01-12-2025 14:18-0400 Body temperature 97.8 [degF] Dr. Roly Garcia MD Work Phone: [facility] 01-12-2025 14:18-0400 Diastolic blood pressure 100 mm[Hg] Dr. Roly Garcia MD Work Phone: [facility] 01-12-2025 14:18-0400 Heart rate 93 /min Dr. Roly Garcia MD Work Phone: [facility] 01-12-2025 14:18-0400 Respiratory rate 17 /min Dr. Roly Garcia MD Work Phone: [facility] 01-12-2025 14:18-0400 SaO2% (BldA) [Mass fraction] 100 % Dr. Roly Garcia MD Work Phone: [facility] 01-12-2025 14:18-0400 Systolic blood pressure 155 mm[Hg] Dr. Roly Garcia MD Work Phone: [facility] 01-12-2025 13:19-0400 Body height 167.[address] Roly Garcia MD Work Phone: [facility] 01-12-2025 13:19-0400 Body mass index (BMI) [Ratio] 25.3 kg/m2 Dr. Roly Garcia MD Work Phone: [facility] 01-12-2025 13:19-0400 Body weight 71.[address] Roly Garcia MD Work Phone: [facility] Encounters Encounter Date Encounter Type Care Provider Facility Start: 05-02-2025 ambulatory Roly Garcia Facility:[facility] Start: 04-28-2025 ambulatory Roly Garcia Facility:[facility] Start: 04-10-2025 ambulatory Roly Garcia Facility:[facility] Start: 04-03-2025 End: 04-03-2025 ambulatory Roly Garcia Facility:[facility] Start: 04-03-2025 End: 04-03-2025 ambulatory Roly Garcia Facility:[facility] Start: 01-17-2025 End: 01-17-[address] Roly Garcia MD Work Phone: -Laboratory [facility] Start: 01-17-2025 End: 01-17-[address] Roly Garcia MD -Laboratory [facility] Start: 01-17-2025 End: 01-17-2025 ambulatory Roly Garcia Facility:[facility] Start: 01-12-2025 End: 01-13-2025 Emergency department patient visit Dr. Roly Garcia MD Work Phone: -Emergency Department Work Phone: Start: 01-12-2025 End: 01-12-2025 Emergency department patient visit Dr. Roly Garcia MD Work Phone: -Emergency Department Work Phone: Start: 10-01-2024 End: 10-01-[address] Roly Garcia MD -Laboratory [place] Work Phone: Start: 10-01-2024 End: 10-01-2024 ambulatory Roly Garcia Facility:[facility] Start: 06-07-2024 End: 06-07-2024 ambulatory Roly Garcia Facility:[facility] Start: 06-07-2024 End: 06-07-2024 ambulatory Jesse JACKSON Facility:[facility] Start: 04-30-2024 End: 04-30-2024 ambulatory Angelo Jara PA Facility:[facility] Start: 09-27-2023 End: 09-27-2023 ambulatory [facility] Work Phone: Start: 09-27-2023 End: 09-27-2023 Patient encounter procedure [facility] Start: 05-19-2023 Telephone encounter Saskia Judd Work Phone: Podiatry Start: 05-18-2023 End: 05-18-2023 ambulatory SASKIA VALENCIA Facility:[facility] Start: 05-18-2023 End: 05-18-2023 Patient encounter procedure Saskia Valencia Work Phone: Podiatry Comment on above: Onychomycosis (Prima ry Dx); Pain in toe of left foot; Pain in toe of right foot Start: 08-30-2021 End: 08-30-2021 Patient encounter procedure [facility] Procedures Date Procedure Procedure Detail Performing Clinician Start: 01-17-2025 Prostate specific an tigen measurement Dr. Roly Garcia MD Work Phone: Comment on above: This test was perfor med using the [employer] tPSA method. Measured values of a patient sample can vary depending on the testing procedure used. PSA values determined on patient samples by different testing procedures cannot be used interchangeably. If there is a change in PSA assays while monitoring therapy, sequential testing should be performed to confirm baseline values. Start: 01-13-2025 Urnls dip stick/tabl et reagent auto microscopy Dr. Roly Garcia MD Work Phone: Start: 01-12-[address] Roly Garcia MD Work Phone: Start: 01-12-2025 CT cervical spine wi thout contrast Dr. Roly Garcia MD Work Phone: Start: 01-12-2025 CT of head without contrast Dr. Roly Garcia MD Work Phone: Start: 01-12-2025 Plain x-ray of wrist Dr Rosa Garcia MD Work Phone: Plan of Treatment Date Care Activity Detail Author Start: 01-26-2033 Urine microalbumin profile DTaP,Tdap,Td Vaccine (2 - Td or Tdap) [facility] Start: 01-13-2025 [facility] Start: 02-03-2023 Covid-19 Vaccine ( season) Covid-19 Vaccine ( season) [facility] Start: 02-03-2023 Influenza vaccination Influenza Vacc ine (#1) [facility] Start: 06-05-2022 Depression Assessment Depression Ass essment [facility] Start: 2019 Prostate specific an tigen measurement Prostate Cancer Screening Discussion [facility] Start: 2014 Shingrix Vaccine (1 of 2) Mathis grix Vaccine (1 of 2) [facility] Start: 2009 Diabetes Screening Diabetes Screenin g [facility] Start: 2009 Screening for malign ant neoplasm of colon [facility] Start: 1999 Lipid panel Lipid Screening [facility] Start: 1982 Hepatitis C screening Hepatitis C Sc adiel [facility] Start: 1982 HIV screening HIV Screening [facility] Start: 1964 Hepatitis B Vaccine (1 of 3 - 3-dose series) Hepatitis B Vaccine (1 of 3 - 3-dose series) [facility] Patient Education [facility] Work Phone: Immunizations Immunization Date Immunization Notes Care Provider Juan Manuel boyce 03-04-2022 influenza, injectabl e, quadrivalent, preservative free [facility] 03-04-2022 influenza virus vaccine, unspecified formulation Saskia Dowlingreynold Work Phone: [facility] 05-19-2021 Covid (Moderna) [facility] 03-02-2021 influenza, injectabl e, quadrivalent, preservative [facility] 03-02-2021 influenza, seasonal, [facility] Work Phone: 07-14-2020 Cov[facility] ([facility] 06-16-2020 Covid (Moderna) [facility] 03-03-2020 influenza, injectabl e, quadrivalent, preservative free [facility] 03-03-2020 influenza, seasonal, [facility] Work Phone: 04-08-2019 influenza, injectabl e, quadrivalent, preservative free [facility] 04-08-2019 influenza, seasonal, [facility] Work Phone: 03-19-2018 influenza, injectabl e, quadrivalent, preservative free [facility] 03-19-2018 influenza, seasonal, injectable [facility] Work Phone: 03-10-2017 influenza, injectabl e, quadrivalent, preservative free [facility] 03-10-2017 influenza, seasonal, [facility] Work Phone: 03-03-2016 influenza, injectabl e, quadrivalent, preservative free [facility] 03-03-2016 influenza, seasonal, injectable [facility] Work Phone: 03-04-2015 influenza, injectabl e, quadrivalent, preservative free [facility] 03-04-2015 influenza, seasonal, injectable [facility] Work Phone: 02-27-2014 influenza, injectabl e, quadrivalent, preservative free [facility] 02-27-2014 influenza, seasonal, injectable [facility] Work Phone: 06-13-2013 Influenza virus vaccine [facility] Payers Date Payer Category Payer Self-pay [id number] 2021 Medicaid [id number] 1991 Medicare [id number] 1991 Medicare MEDICARE MEDICAR E A AND B [id number] 1991-Present [phone] [place] [address] Medicare [id number] Unknown [id number] Unknown [id number] Unknown [id number] Unknown [id number] Unknown [id number] Unknown [id number] Unknown [id number] Unknown [id number] Unknown [id number] Unknown [id number] Unknown [id number] Unknown [id number] Social History Date Type Detail Facility Start: 06-13-2013 Tobacco smoking stat us GAIS Unknown if ever smoked [facility] Start: 1965 Sex Assigned At Male [facility] Start: 05-18-2023 End: 01-12-2025 Tobacco smoking status NHIS Never smoked tobacco [facility] Start: 05-18-2023 Tobacco use and exposure Smokeless tobacco non-user [facility] Start: 05-18-2023 Alcohol intake Lifetime non-d emanuel (finding) [facility] Start: 05-18-2023 History of Social function [facility] Start: 05-18-2023 Tobacco use panel [facility] National Score (1-100), lower number is lower risk 80 [facility] Start: 1965 Sex Assigned At Not on file [facility] Mental Status Date Assessment Result Facility 01-13-2025 Cognitive function Level Of Cons ciousness Awake;Alert;Appropriate;Drowsy [facility] Work Phone: Radiology Diagnostic study note 01-13-2025 Note Date & Type Note Facility 01-13-2025 Radiology Diagnostic study note [facility] [address] [place], [place] [address] Spine Cervical without Contras MR#: [id number] Acct: [id number] Name: WILBUR XIE Rep #: [id number] : 1965 M 59 From: Nneka Dunn MD PCP: Dr. Roly Garcia MD Status: REG E R Study:Spine Cervical without Contras Date of Exam: 01/12/25 Exam# [id number] Ordering Dr: James Uriarte MD PROCEDURE: SPINE CERVICAL WITHOUT CONTRAS 01/12/2025 REASON FOR EXAM: FALL TECHNIQUE: SPINE CERVICAL WITHOUT CONTRAS Coronal and Sagittal reconstruction series were provided. One or more dose reduction techniques were used (e.g., Automated exposure control, adjustment of the mA and/or kV according to patient size, use of iterative reconstruction technique. RADIATION DOSE SUMMARY: CTDlvol: 23 mGy DLP: 497 mGycm COMPARISON: No FINDINGS: Cervical spine scoliosis and degeneration. No acute fracture or dislocation. No soft tissue injury. No apical pneumothorax. CT/Spine Cervical without Contras IMPRESSION: No acute injury Reading Location: [place] [address] CC: Dr. Mary Alice Uriarte MD; Dr. Roly Garcia MD ~ Information Technology Director: Signed [facility] Radiology Diagnostic study note 01-13-2025 Note Date & Type Note Facility 01-13-2025 Radiology Diagnostic study note [facility] [address] [place] [id number] Brain/Head without Contrast MR#: [id number] Acct: [id number] Name: WILBUR XIE Rep #: [id number] : 1965 M 59 From: Nneka Dunn MD PCP: Dr. Roly Garcia MD Status: REG E R Study:Brain/Head without Contrast Date of Exa m: 01/12/25 Exam# [id number] Ordering Dr: James Uriarte MD PROCEDURE: BRAIN/HEAD WITHOUT CONTRAST 01/12/2025 REASON FOR EXAM: AMS TECHNIQUE: BRAIN/HEAD WITHOUT CONTRAST Coronal and Sagittal reconstruction series were provided. One or more dose reduction techniques were used (e.g., Automated exposure control, adjustment of the mA and/or kV according to patient size, use of iterative reconstruction technique. RADIATION DOSE SUMMARY: CTDlvol: 45 mGy DLP: 864 mGycm COMPARISON: No FINDINGS: Diffuse atrophy. Left frontal lobe encephalomalacia, possible remote trauma or ischemia. No acute abnormal brain densities. No intracranial hemorrhage. No hydrocephalus or midline shift. No acute scalp or skull pathology. Minimal sinus opacification. Unremarkable orbits. CT/Brain/Head without Contrast IMPRESSION: No acute intracranial findings. Reading Location: [facility] CC: Dr. Mary Alice Uriarte MD; Dr. Roly Garcia MD ~ Information Technology Director: Signed [facility] Radiology Diagnostic study note 01-12-2025 Note Date & Type Note Facility 01-12-2025 Radiology Diagnostic study note [facility] [address] [place] [address] Wrist min 3 Views MR#: [id number] Acct: [id number] Name: WILBUR XIE Rep #: [id number] : 1965 M 59 From: Farooq Cuadra MD PCP: Dr. Roly Garcia MD Status: REG E R Study:Wrist min 3 Views Date of Exam: Exam# [id number] Ordering Dr: Xin Arguello DO PROCEDURE: WRIST [...] to the radial carpal joint. Reading Location: [facility] CC: Dr. Roly Garcia MD; Dr. Mark Arguello DO ~ Information Technology Director: Signed [facility] Progress note 05-20-2023 Note Date & Type Note Facility 05-20-2023 Note HNO ID: [id number] Author: Niteshzac Saskia Service: ? Author Type: Physician Type: Progress [...] last 1 encounters. No results found for: "HBA1C" PCP: No primary care provider on file. [...] Saskia Valencia DPM Podiatry [address] [facility] [address] Dept: [phone] Dept [facility] History of Present illness Narrative 05-20-2023 [...] last 1 encounters. No results found for: "HBA1C" PCP: No primary care provider on file. [...] Saskia Valencia DPM Podiatry [address] [facility] [address] Dept: [phone] Dept Patient presents with: Left Foot - New, nail care Right Foot - New, nail care Patient presents for nail care. Patient new to [facility]. Unsure of medications that he takes, Lives with mother. States that he is not a diabetic. All toenail are long, thick and discolored. documented in this encounter [facility] Progress note 05-18-2023 Note Date & Type Note Facility 05-18-2023 Note HNO ID: [id number] Author: Yancy Flores RN Service: ? Author Type: Registered Nurse Type: Progress Notes Filed: 05/20/2023 6:44 AM Note Text: Patient presents with: Left Foot - New, nail care Right Foot - New, nail care Patient presents for nail care. Patient new to [facility]. Unsure of medications that he takes, Lives with mother. States that he is not a diabetic. All toenail are long, thick and discolored. [facility] Evaluation note Note Date & Type Note Facility Evaluation note No assessment information availa [facility] Work Phone: Evaluation note Note Date & Type Note Facility Evaluation note Diagnosis Onychomycosis- Primary Dermatophytosis of nail Pain in toe of left foot Pain in limb Pain in toe of right foot Pain in limb documented in this encounter [facility] Hospital Discharge instructions Note Date & Type Note Facility Hospital Discharge instructions Additional Instructions I would recommend that you take the Percocet every 8 hours as needed for pain control. Alternate this with 600 mg of Motrin. For example, take motrin at noon, then percocet at 4 pm then motrin again at 8 pm. Please follow-up with the orthopedic doctor that was recommended this morning. Your evaluation in the Emergency Department did not reveal any acute reason for admission. However, I want to emphasize that you may be early in the course of a disease process or illness even if it is not present. For this reason you should follow-up within 24 hours for reevaluation with either your primary care physician or if necessary back here in the Emergency Department. You should return to the Emergency Department immediately if your symptoms worsen or new symptoms develop. [facility] Work Phone: Reason for referral (narrative) Note Date & Type Note Facility Reason for referral (narrative) No reason for referral information available [facility] Work Phone: Summary Purpose Family History No Family History Records FoundNo Family History Records Found Advance Directives No Advanced Directives Records Found Advance Directive Response Recorded Date/ Time Do you have a Healthcare Power of Poultry Husbandry Teacher? No January 12, 2025 1:34pm Advance Directive Response Recorded Date/ Time Do you have a Healthcare Power of Poultry Husbandry Teacher? No January 12, 2025 1:34pm Do you have a Healthcare Power of Poultry Husbandry Teacher? Yes January 12, 2025 10:28pm Name of Medical Power of Poultry Husbandry Teacher Milan Xie January 12, 2025 10:28pm Chief Complaint and Reason for Visit Chief Complaint Admit Date FASTING October 01, 2024 11: 59am upper extremity January 12, 2025 1: 18pm Chief Complaint Admit Date FASTING October 01, 2024 11: 59am upper extremity January 12, 2025 1: 18pm Unresponsive from [facility] pain medicine. Aug us2024 10:21pm Additional Source Comments Goals (unrecognized section and [...] or prosecute any alcohol or drug abuse patient.[facility] the event this information is protected by the Federal Confidentiality of Alcohol and Drug Abuse Patient Records regulations: The Federal rules restrict any use of the information to criminally investigate or prosecute any alcohol or drug abuse patient.[facility] Reason for Visit (unrecogniz ed section and content) Reason Comments New nail care (unrecognized sect ion and content) No Status Records FoundNo Status Records Found INFORMATION SOURCE (unrecogn ized section and content) DATE CREATED AUTHOR 05/20/2023 [facility] DATE CREATED AUTHOR AUTHOR'S ORGANIZ ATION 04/12/2025 [facility] Teams (unrecognized sec tion and content) Team [...] January 12, 2025 End: January 12, 2025 Team Status: Inactive Member Role/Relationship Status Dates Dr. Roly Garcia MD Primary Care Provider Active Start: January 12, 2025 End: January 13, 2025 Dr. Mary Alice Uriarte MD Emergency Provider Active S tart: January 12, 2025 End: January 13, 2025 Team Status: Inactive Member Role/Relationship Status Dates Dr. Roly Garcia MD Primary Care Provider Active Start: January 12, 2025 End: January 12, 2025 Dr. Mark Arguello DO Attending Provider Active S tart: January 12, 2025 End: January 12, 2025 Dr. Mark Arguello DO Referring Provider Active S tart: January 12, 2025 End: January 12, 2025 Dr. Mark Arguello DO Emergency Provider Active S tart: January 12, 2025 End: January 12, 2025 Team Status: Inactive Member Role/Relationship Status Dates Dr. Roly Garcia MD Primary Care Provider Active Start: January 12, 2025 End: January 13, 2025 Dr. Mary Alice Uriarte MD Attending Provider Active S tart: January 12, 2025 End: January 13, 2025 Dr. Mary Alice Uriarte MD Emergency Provider Active S tart: January 12, 2025 End: January 13, 2025 Team Status: Inactive Member Role/Relationship Status Dates Dr. Roly Garcia MD Primary Care Provider Active Start: January 17, 2025 End: January 17, 2025 Dr. Roly Garcia MD Attending Provider Active Start: January 17, 2025 End: January 17, 2025 FOR RECORDS PERTAINING TO PATIENTS WHO [...] BE BASED ON THE PRIMARY CLINICAL RECORDS. [facility]. provides no warranty or guarantee of the accuracy or completeness of information in this document.
[2025-05-01 17:57] LABS: Mucous, Urine 0 SEEN /hpf (<or=2+); Squamous Epithelial Cells - UA 0 SEEN /hpf (0-5)
[2025-05-01 18:02] LABS: Hematocrit 39.5 % (40-54); Hemoglobin 13.4 g/dL (13.0-16.5); Immature Granulocytes Count 0.010 X10^3/uL (0.0-0.0); Mean Corp Hgb Conc 33.9 g/dL (32-36); Mean Corpuscular Volume 89.4 fL (80-94); Mean Platelet Vol. 10.6 fl (6.2-12.0); NRBC Flagged by Analyzer 0 % (0-5); Platelet Count 223 K/mm3 (150-450); RBC Distribution Width CV 12.7 % (11.6-14.6); RBC Distribution Width SD 41.9 fl (35.1-43.9); Red Blood Count 4.42 M/mm3 (4.6-6.2); White Blood Count 6.4 K/mm3 (4.4-11.0)
[2025-05-01 18:03] LABS: Color, Urine Yellow (Yellow); Glucose, Dipstick Normal (Normal); Ketone-Dipstick Negative (Negative); Leukocyte Esterase-Dipstick Negative /ul (Negative); Nitrite-Dipstick Negative (Negative); Occult Blood-Urine Negative /ul (Negative); Protein-Dipstick 15 mg/dl (Negative); Specific Gravity, Urine 1.010 (1.002-1.030); Urine Bilirubin Dipstick Negative (Negative)
--- NOTE | 2025-05-01 18:04 | ED.VIS.DYS ---
HPI History of Present Illness Chief Complaint: Shortness of Breath Informant: patient and family Narrative Narrative: Patient is a 59-year-old male with history of prior traumatic brain injury who currently resides in a shelter as well as seizures, hypertension hyperlipidemia and prior appendectomy presenting for shortness of breath. Family picked him up today for the holidays. They state that last saw him on Monday and Monday did not see him yesterday. They note that he was fine until yesterday when he started to get more short of breath. Is much worse today. They noticed that he seemed short of breath today and was eating seem to have trouble swallowing and had episode of gagging and spit in his food up. Reports that it hurts in his chest when he breathes. Family notes that he has had a raspy cough has been nonproductive. Never anything like this before. He has no reported fever or skin changes. No urinary symptoms reported. No change in bowel movements or vomiting reported. No sick contacts reported. No other complaints or concerns at this time. [facility] Medical History Seizures Hyperlipidemia HTN (hypertension) Home Medications Medication Instructions Recorded Last Taken Type rosuvastatin 5 mg tablet 5 mg PO QDAY 04/30/24 Unknown History acetaminophen 500 mg tablet 500 mg PO Q6H PRN pain 01/12/25 Unknown History (Tylenol Extra Strength) amoxicillin 875 mg-potassium 875 mg PO Q12H #10 TABLETS 05/01/25 Unknown Rx clavulanate 125 mg tablet nirmatrelvir 300 mg (150 mg See Rx Instructions PO .COMPLEX 05/01/25 Unknown Rx x2)-ritonavir 100 mg tablet,dose #30 tabs pack (Paxlovid) ondansetron 4 mg disintegrating 4 mg PO Q8H PRN PRN Nausea #10 tabs 05/01/25 Unknown Rx tablet Allergy/AdvReac Type Severity Reaction Status Date / Time No Known Allergies Allergy Verified 05/01/25 16:27 Family History Mother , 87 Hypertension Diabetes Father , 85 Heart disease Hypertension Surgical History History of appendectomy No pertinent past surgical history Social History housing: other details: shelter with 3 room mates current occupational status: disabled Smoking Status: Never smoker alcohol intake: never caffeine: Yes ROS ROS ED Constitutional Constitutional ED: Reports chills; Denies fever(s) ENT ENT ED: Reports other Details: Difficulty swallowing as noted by family ; Denies rhinorrhea or sore throat Cardiovascular Cardiovascular: Reports chest pain Respiratory/Chest Respiratory/Chest: Reports cough and dyspnea; Denies sputum Gastrointestinal Gastrointestinal: Denies abdominal pain, diarrhea, nausea or vomiting Genitourinary Genitourinary ED: Denies dysuria Musculoskeletal Musculoskeletal: Denies arthralgias or myalgias Integumentary Denies rash Neurologic Neurologic: Reports weakness; Denies headache(s) Hematologic/Lymphatic Hematologic/Lymphatic: Denies easy bleeding or easy bruising EXAM Physical Exam Const Vital Signs: 05/01/25 16:25 05/01/25 16:25 05/01/25 16:53 Temperature 98 F Temperature Source Temporal Pulse Rate 121 H 123 H Respiratory Rate 14 Respiratory Effort Short of Breath Respiratory Depth Shallow Respiratory Pattern Tachypnea Blood Pressure 137/78 H Blood Pressure Mean 97 Pulse Ox 94 Oxygen Delivery Method Room Air Room Air 05/01/25 18:19 05/01/25 20:00 05/01/25 22:46 Temperature 101.9 F H 98.0 F Temperature Source Oral Pulse Rate 100 70 Respiratory Rate 20 H 18 Respiratory Effort Respiratory Depth Respiratory Pattern Blood Pressure 118/75 Blood Pressure Mean 89 Pulse Ox 94 98 Oxygen Delivery Method Positive well nourished and well developed Constitutional Narrative: Patient feels quite warm to the touch General Appearance ED: well developed and NAD HEENT Reports TM's clear and moist mucous membranes atraumatic Tympanic Membrane ED: Yes TM's clear Eyes PERRL and EOMs intact bilaterally General Eye ED: Negative for scleral icterus Neck supple and no JVD Resp Resp Narrative: Tachypneic, diminished breath sounds at the bases Auscultation: Negative for rhonchi or wheezes Cardio regular rhythm and no murmurs Rate: tachycardic GI non-tender and non-distended Auscultation: normoactive bowel sounds Palpation: soft Extremity normal to inspection General Extremety ED: Negative for edema General Extremity: Negative for edema Neuro Neuro Narrative: Patient is slow to respond which reportedly is his baseline. Does overall answer questions appropriately. Does appear to have a cognitive delay. Sensorium / Orientation: alert, oriented to person and oriented to place Psych mental status grossly normal Skin no wounds MDM MDM MDM Narrative Medical decision making narrative: Patient evaluated for increased work of breathing, shortness of breath and generalized malaise. Brought in by family. Upon arrival patient is tachypneic and tachycardic. He is not currently hypoxic. He seems febrile. Temperature is in fact elevated in the emergency room. Patient given Tylenol. Differential includes is not limited to viral syndrome, pneumonia, aspiration (reportedly has a history of this), pulmonary emboli, ACS, electrolyte derangement and JAVI symptomatic. CBC is normal. D-dimer is elevated at 0.79 and CTA is added on. Chest x-ray viewed by myself as well as radiology does not show any acute abnormalities but does have poor inspiration. CMP largely normal. Lactate is mildly elevated at 2.1. Patient is given IV fluids in the emergency room as suspect there could be a component of dehydration. High sensitive troponin normal at 10 and then 11. Urinalysis not consistent with infection. COVID swab is positive which is likely the cause of his presentation today. CTA of the chest was ordered given his elevated D-dimer to rule out associated pulmonary emboli. As he did have this questionable episode of gagging versus vomiting and fever I did also add on abdomen and pelvis for further evaluation looking for secondary source of infection. No pulmonary malaise noted. Patient is noted to have patchy airspace consolidation/atelectasis at the bilateral lung bases which could be aspiration with mucoid debris/secretion. I suspect this is more associated with his COVID infection however out of abundance of caution we will start him on antibiotics to cover for potential aspiration. Patient's vital signs normalized in the ER with Tylenol/fever control. He is ambulated in the ER and does not have any hypoxia. At this time I do not think he requires inpatient treatment. Will be started on Paxlovid she does have hypertension. Instructed to hold his statin while on his Paxlovid. Given close return precautions. Discharged home in stable condition. History & Record Review Additional record(s) reviewed:: Other (Echocardiogram from 04/24/2025 reviewed-stage I diastolic dysfunction. LVEF 60%. No regional wall motion abnormalities noted.) Lab Data Labs: Laboratory Results - last 24 hr 05/01/25 05/01/25 05/01/25 17:00 17:50 19:50 WBC 6.4 RBC 4.42 L Hgb 13.4 Hct 39.5 L MCV 89.4 MCH 30.3 MCHC 33.9 RDW Std Deviation 41.9 RDW Coeff of Marco 12.7 Plt Count 223 MPV 10.6 Immature Gran % (Auto) 0.200 Neut % (Auto) 80.2 H Lymph % (Auto) 9.7 L [place] % (Auto) 9.7 Eos % (Auto) 0.0 Baso % (Auto) 0.2 Absolute Neuts (auto) 5.1 Absolute Lymphs (auto) 0.62 L Nucleated RBC % 0 D-Dimer Quant (PE/DVT) 0.79 H* Sodium 136 Potassium 3.7 Chloride 101 Carbon Dioxide 23.1 Anion Gap 13 BUN 6 Creatinine 0.69 L Estim Creat Clear Calc 107.47 Est GFR (MDRD) Non-Af 106 BUN/Creatinine Ratio 8.9 L Glucose 125 H Lactic Acid 2.1 H* Calcium 9.3 Total Bilirubin 0.68 AST 22 ALT 18 Alkaline Phosphatase 85 Troponin T High Sens 10 Troponin T Hi Sens 2 Hr 11 Total Protein 7.1 Albumin 4.1 Globulin 3.1 Albumin/Globulin Ratio 1.3 Urine Color Yellow Urine Clarity Clear Urine pH 7.0 Ur Specific [place] 1.010 Urine Protein 15 H Urine Glucose (UA) Normal Urine Ketones Negative Urine Occult Blood Negative Urine Nitrite Negative Urine Bilirubin Negative Urine Urobilinogen Normal Ur Leukocyte Esterase Negative Urine RBC 0-5 SEEN Urine WBC 0 SEEN Ur Squamous Epith Cells 0 SEEN Urine Bacteria 1+ Urine Mucus 0 SEEN Radiography Diagnostic Testing: Clinical Impression(s) from Imaging Studies Chest X-Ray 05/01/25 18:05 IMPRESSION: Shallow inspiration with bibasilar atelectasis. No discrete airspace consolidation or sizable pleural effusion. Reading Location: [id number] Abdomen/Pelvis CT 05/01/25 19:25 IMPRESSION: 1. No acute pulmonary arterial emboli identified. 2. Patchy airspace consolidation/atelectasis in the bilateral lung bases, potentially related to aspiration with mucoid debris/secretions in the central bronchial airways. 3. No acute or active inflammatory intra-abdominal pathology. Ancillary findings as above. Reading Location: [facility] Chest CTA 05/01/25 19:25 IMPRESSION: 1. No acute pulmonary arterial emboli identified. 2. Patchy airspace consolidation/atelectasis in the bilateral lung bases, potentially related to aspiration with mucoid debris/secretions in the central bronchial airways. 3. No acute or active inflammatory intra-abdominal pathology. Ancillary findings as above. Reading Location: [facility] Rhythm Strip Rhythm Strip: Sinus Tach Rate: 116 Ectopy: None EKG Initial EKG: Attestation: I personally reviewed and interpreted this EKG as follows: Interpretation: Sinus Tachycardia Comments: Sinus tachycardia rate of 116 bpm Minimal voltage criteria for LVH Normal ST segments with nonspecific T wave abnormalities Compared to prior EKG on 04/24/2025 patient is not tachycardic with no other acute changes Prior EKG tracings: available for review Prior: Changed (Now tachycardic) Discharge Plan Triage Chief Complaint: Shortness of Breath ED Provider: Opal Bailon Dx/Rx/DC Orders Clinical Impression: COVID-19, Fever, Constipation Instructions: Coronavirus Disease 2019 (COVID-19): Caring for Yourself or Others, ED Constipation (Adult) Prescriptions: New Paxlovid 300 mg (150 mg x 2)-100 mg tablets,dose pack See Rx Instructions .ROUTE .COMPLEX Qty: 30 0RF Rx Instructions: take TWO 150 mg tablets of nirmatrelvir with ONE 100 mg tablet of ritonavir twice daily for 5 days ondansetron 4 mg tablet,disintegrating 4 mg PO Q8H PRN PRN (Reason: Nausea) Qty: 10 0RF amoxicillin-pot clavulanate 875-125 mg tablet 875 mg PO Q12H Qty: 10 0RF No Action rosuvastatin 5 mg tablet 5 mg PO QDAY acetaminophen [Tylenol Extra Strength] 500 mg tablet 500 mg PO Q6H PRN (Reason: pain) Primary Care Provider: Roly Garcia Referrals: Roly Garcia MD [Primary Care Provider, Family Practice] Activity Restrictions/Additional Instructions: Please hold your rosuvastatin (cholesterol medication) while taking the Paxlovid (medication for COVID). He did test positive for COVID. Your CT is more consistent with mucus in the lungs however there is a question of possible aspiration so we have put you on Augmentin for this. If you are not able to keep your self hydrated, have worsening respiratory symptoms or difficulty breathing please do not hesitate to return the emergency room. In addition your CT did show ophiasis with constipation. You would benefit from taking daily MiraLAX or other laxative to help with bowel movements. Print Language: [place] Disposition Disposition: Home, Self Care Discharge Date/Time: 05/01/25 22:47
--- NOTE | 2025-05-01 18:05 | RAD_ITS ---
PROCEDURE: CHEST PA AND LATERAL 05/01/2025 REASON FOR EXAM: COUGH TECHNIQUE: Procedure Code: RADCXR Modality: DX Procedure: CHEST PA AND LATERAL COMPARISON: None. FINDINGS: Shallow inspiration with associated bronchovascular crowding and bibasilar streaky subsegmental atelectasis. No definite focal consolidation, pneumothorax or sizable pleural effusion appreciated. Cardiac silhouette is enlarged, although likely exaggerated by technique/shallow lung volumes. Mild multilevel degenerative changes of the spine. RAD/Chest PA and Lateral IMPRESSION: Shallow inspiration with bibasilar atelectasis. No discrete airspace consolidation or sizable pleural effusion. Reading Location: [id number]
[2025-05-01 18:12] LABS: Red Blood Cells-Urine 0-5 SEEN /hpf (0-5)
[2025-05-01] MEDS: 0.9% Normal Saline (1000mL) 1,000 ML 1000 ML IV (18:14)
[2025-05-01 18:19] VITALS: TEMP 38.8
[2025-05-01 18:24] LABS: D-Dimer Quantitative (DVT/PE) 0.79 FEU/ug/m (0.27-0.49)
[2025-05-01 18:34] LABS: Troponin T High Sensitivity 10 ng/L (<=22)
[2025-05-01 18:37] LABS: AST(SGOT) 22 U/L (<=37); Alanine Aminotransfer ALT/SGPT 18 U/L (<=46); Albumin, Serum 4.1 g/dL (3.4-4.8); Alkaline Phosphatase 85 U/L (40-129); Anion Gap 13 (5-15); BUN 6 mg/dL (4-19); BUN/Creat Ratio 8.9 RATIO (10-20); Calcium,Total 9.3 mg/dL (7.6-11.0); Carbon Dioxide 23.1 mmol/L (21.0-32.0); Chloride 101 mmol/L (98-108); Estimated Creatinine Clearance 107.47 ml/min (50-250); Globulin 3.1 g/dL (2.2-4.2); Glucose 125 mg/dL (70-99); Potassium 3.7 mmol/L (3.3-5.1)
--- NOTE | 2025-05-01 19:25 | CT_ITS ---
PROCEDURE: CTA CHEST W/WO CONTRAST; ABDOMEN/PELVIS W IV CONT ONLY 05/01/2025 REASON FOR EXAM: SOB, FEVER, ELEVATED DIMER; VOMITING TECHNIQUE: Procedure Code: [id number]; [id number] Modality: CT Procedure: CTA CHEST W/WO CONTRAST; ABDOMEN/PELVIS W IV CONT ONLY Multiplanar Sagittal and Coronal images were obtained. 3D post processing was performed. CONTRAST: Isovue 370 VOLUME: 100 mL One or more dose reduction techniques were used (e.g., Automated exposure control, adjustment of the mA and/or kV according to patient size, use of iterative reconstruction technique). RADIATION DOSE SUMMARY: DLP: 951.29 mGycm COMPARISON: None. FINDINGS: PULMONARY VESSELS: No filling defects suspicious for pulmonary arterial emboli identified. Although, the lower lobe subsegmental branches are not adequately evaluated due to respiratory motion artifact. Normal caliber main pulmonary trunk. No evidence of right heart strain. LUNGS/PLEURA: Posterior bibasilar consolidation and/or atelectasis. Possibly related to aspiration, with mucoid debris/secretions in the central bronchial airways. No pneumothorax or pleural effusion. MEDIASTINUM: Unremarkable. No suspicious lymph node enlargement. HEART: Normal in size. No pericardial effusion. Scant coronary artery calcifications. AORTA: Normal in course and caliber. Mild atherosclerotic disease. HEPATOBILIARY: Unremarkable. No biliary ductal dilatation. GENITOURINARY: Punctate nonobstructive left renal stone. No hydronephrosis on either side. Few small simple appearing renal cysts. Borderline enlarged prostate. Unremarkable urinary bladder. Small left inguinal hernia containing a short-segment of partially herniated small bowel without evidence of obstruction or strangulation. GI TRACT: Patulous fluid and air-filled lower esophagus. No evidence of obstruction or active inflammatory process. Moderate stool burden throughout the colon suggesting constipation. Appendix is not definitively identified but there are no pericecal inflammatory changes. PERITONEUM/RETROPERITONEUM: No ascites or free air. No lymphadenopathy. MUSCULOSKELETAL: Mild multilevel degenerative changes of the spine. CT/Abdomen/Pelvis W IV Cont ONLY IMPRESSION: 1. No acute pulmonary arterial emboli identified. 2. Patchy airspace consolidation/atelectasis in the bilateral lung bases, poten tially related to aspiration with mucoid debris/secretions in the central bronchial airways. 3. No acute or active inflammatory intra-abdominal pathology. Ancillary finding s as above. Reading Location: [id number]
[2025-05-01 20:00] VITALS: PULSE 100; RESP 20; O2SAT 94
[2025-05-01 20:44] LABS: Troponin T High Sens 2 HR 11 ng/L (<=22)
[2025-05-01 21:47] VITALS: O2SAT 98
[2025-05-01 21:48] LABS: Reflex Lactate? Y
[2025-05-01 22:46] VITALS: BP 118/75; PULSE 70; RESP 18; TEMP 36.7; O2SAT 98
== END 2025-05-01 22:47 | disposition home or self-care (01) ==
PROVIDERS: Emergency Provider Emergency Medicine; PCP Family Medicine; Visit Provider Emergency Medicine
DX: U07.1 COVID-19 (principal); K59.00 Constipation, unspecified; I10 Essential (primary) hypertension; E78.5 Hyperlipidemia, unspecified; Z79.899 Other long term (current) drug therapy; Z87.820 Personal history of traumatic brain injury
CPT/HCPCS: 71046; 71275; 74177; 80053; 81001; 83605; 84484; 85025; 85379; 87631; 93005; 96360; 96361; 99284; Q9967